=== PATIENT | male | born 1955 | race Caucasian/White ===

== ENCOUNTER 2016-12-27 13:39 | Emergency (ER) | payer OTHER ==
[2016-12-27] MEDS ORDERED: SODIUM CHLORIDE 0.9% 1,000 ML IV STA ×2 (13:42)
[2016-12-27 13:46] VITALS: RESP 18
--- NOTE | 2016-12-27 13:54 | ED ---
General Adult HPI - General Chief complaint: Dizziness Stated complaint: Weakness Time Seen by Provider: 12/27/16 13:42 Source: patient, family, EMS, RN notes reviewed, old records reviewed Mode of arrival: EMS - History of Present Illness Initial comments: This is a 7-year-old male to the ER today with weakness. She had majority of complaints and when he woke this morning around 5 AM. Patient gets up early to do chores. Was noted patient is any difficulty getting his copier on 5:30 walking with difficulty talking without difficulty. Patient still wanted to the sore comes on had worsening symptoms. Patient himself denies headache. He thinks his symptoms are improving at this time. Still with mild headache. No fevers. No trauma. - Related Data Home Medications Medication Instructions Recorded Confirmed ALPRAZolam [Xanax] 1 mg PO BID 12/27/16 12/27/16 Albuterol Inhaler [Ventolin Hfa 2 puff INHALATION RT-Q6H PRN 12/27/16 12/27/16 Inhaler] Hydrocodone/Acetaminophen 1 tab PO Q8H PRN 12/27/16 12/27/16 [Hydrocodone/Acetaminophen 10-325] Lidocaine 5% Oint [Xylocaine 5% 1 applic TOPICAL BID PRN 12/27/16 12/27/16 Oint] Allergies Allergy/AdvReac Type Severity Reaction Status Date / Time No Known Allergies Allergy Verified 04/08/14 12:43 Review of Systems ROS Statement: Those systems with pertinent positive or pertinent negative responses have been documented in the HPI. ROS Other: All systems not noted in ROS Statement are negative. Past Medical History Past Medical History: GERD/Reflux, Hypertension History of Any Multi-Drug Resistant Organisms: None Reported Past Surgical History: Orthopedic Surgery Additional Past Surgical History / Comment(s): arthroscopy to left knee Past Anesthesia/Blood Transfusion Reactions: No Reported Reaction Past Psychological History: No Psychological Hx Reported Smoking Status: Current every day smoker Past Alcohol Use History: None Reported, Occasional Past Drug Use History: None Reported General Exam - General Exam Comments Initial Comments: NIH of 6 General appearance: alert, in no apparent distress Head exam: Present: atraumatic, normocephalic, normal inspection Eye exam: Present: normal appearance, PERRL, EOMI. Absent: scleral icterus, conjunctival injection, periorbital swelling ENT exam: Present: normal exam, mucous membranes moist Neck exam: Present: normal inspection. Absent: tenderness, meningismus, lymphadenopathy Respiratory exam: Present: normal lung sounds bilaterally. Absent: respiratory distress, wheezes, rales, rhonchi, stridor Cardiovascular Exam: Present: regular rate, normal rhythm, normal heart sounds. Absent: systolic murmur, diastolic murmur, rubs, gallop, clicks GI/Abdominal exam: Present: soft, normal bowel sounds. Absent: distended, tenderness, guarding, rebound, rigid Extremities exam: Present: normal inspection, full ROM, normal capillary refill. Absent: tenderness, pedal edema, joint swelling, calf tenderness Back exam: Present: normal inspection Neurological exam: Present: alert, oriented X3, CN II-XII intact Psychiatric exam: Present: normal affect, normal mood Skin exam: Present: warm, dry, intact, normal color. Absent: rash Course Vital Signs 12/27/16 12/27/16 12/27/16 13:42 14:03 14:30 Temperature 98.3 F Pulse Rate 78 77 83 Respiratory 18 18 18 Rate Blood Pressure 182/85 171/77 172/83 O2 Sat by Pulse 97 99 Oximetry - Reevaluation(s) Reevaluation #1: 12/27/16 15:13 Discussed the patient and family at length regarding results. Again at this time patient is very irritated, like to be sent home EKG Findings - EKG Comments: EKG Findings:: EKG shows sinus pericardial effusion 9, ID 150, QRS 42, QTC 439 Medical Decision Making - Medical Decision Making 7 female the ER with acute CVA, patient outside of the window also refusing treatment. Patient was just curious as well as cause of his right-sided weakness. He is conveyances and weakness is improved. Refuses further testing , refuses further exam. Patient was out AGAINST MEDICAL ADVICE, able to make his own medical decisions. - Lab Data Result diagrams: 12/27/16 14:04 12/27/16 14:04 Lab Results 12/27/16 12/27/16 12/27/16 Range/Units 14:04 14:04 14:04 WBC 8.0 (3.8-10.6) k/uL RBC 4.56 (4.30-5.90) m/uL Hgb 13.7 (13.0-17.5) gm/dL Hct 40.5 (39.0-53.0) % MCV 88.8 (80.0-100.0) fL MCH 30.0 (25.0-35.0) pg MCHC 33.8 (31.0-37.0) g/dL RDW 13.8 (11.5-15.5) % Plt Count 235 (150-450) k/uL Neutrophils % 78 % Lymphocytes % 16 % Monocytes % 3 % Eosinophils % 1 % Basophils % 0 % Neutrophils # 6.3 (1.3-7.7) k/uL Lymphocytes # 1.3 (1.0-4.8) k/uL Monocytes # 0.2 (0-1.0) k/uL Eosinophils # 0.1 (0-0.7) k/uL Basophils # 0.0 (0-0.2) k/uL PT (9.0-12.0) sec INR (<1.2) APTT (22.0-30.0) sec Sodium 139 (137-145) mmol/L Potassium 3.9 (3.5-5.1) mmol/L Chloride 107 (98-107) mmol/L Carbon Dioxide 23 (22-30) mmol/L Anion Gap 9 mmol/L BUN 14 (9-20) mg/dL Creatinine 0.98 (0.66-1.25) mg/dL Est GFR (MDRD) Af Amer >60 (>60 ml/min/1.73 sqM) Est GFR (MDRD) Non-Af >60 (>60 ml/min/1.73 sqM) Glucose 103 H (74-99) mg/dL Calcium 9.0 (8.4-10.2) mg/dL Phosphorus 3.6 (2.5-4.5) mg/dL Magnesium 1.7 (1.6-2.3) mg/dL Total Bilirubin 0.4 (0.2-1.3) mg/dL AST 31 (17-59) U/L ALT 37 (21-72) U/L Alkaline Phosphatase 69 (38-126) U/L Total Creatine Kinase 127 (55-170) U/L CK-MB (CK-2) 1.8 (0.0-2.4) ng/mL CK-MB (CK-2) Rel Index 1.4 Troponin I <0.012 (0.000-0.034) ng/mL Total Protein 6.7 (6.3-8.2) g/dL Albumin 4.0 (3.5-5.0) g/dL TSH 0.979 (0.465-4.680) mIU/L Serum Alcohol <10 mg/dL 12/27/16 Range/Units 14:04 WBC (3.8-10.6) k/uL RBC (4.30-5.90) m/uL Hgb (13.0-17.5) gm/dL Hct (39.0-53.0) % MCV (80.0-100.0) fL MCH (25.0-35.0) pg MCHC (31.0-37.0) g/dL RDW (11.5-15.5) % Plt Count (150-450) k/uL Neutrophils % % Lymphocytes % % Monocytes % % Eosinophils % % Basophils % % Neutrophils # (1.3-7.7) k/uL Lymphocytes # (1.0-4.8) k/uL Monocytes # (0-1.0) k/uL Eosinophils # (0-0.7) k/uL Basophils # (0-0.2) k/uL PT 10.7 (9.0-12.0) sec INR 1.1 (<1.2) APTT 34.2 H (22.0-30.0) sec Sodium (137-145) mmol/L Potassium (3.5-5.1) mmol/L Chloride (98-107) mmol/L Carbon Dioxide (22-30) mmol/L Anion Gap mmol/L BUN (9-20) mg/dL Creatinine (0.66-1.25) mg/dL Est GFR (MDRD) Af Amer (>60 ml/min/1.73 sqM) Est GFR (MDRD) Non-Af (>60 ml/min/1.73 sqM) Glucose (74-99) mg/dL Calcium (8.4-10.2) mg/dL Phosphorus (2.5-4.5) mg/dL Magnesium (1.6-2.3) mg/dL Total Bilirubin (0.2-1.3) mg/dL AST (17-59) U/L ALT (21-72) U/L Alkaline Phosphatase (38-126) U/L Total Creatine Kinase (55-170) U/L CK-MB (CK-2) (0.0-2.4) ng/mL CK-MB (CK-2) Rel Index Troponin I (0.000-0.034) ng/mL Total Protein (6.3-8.2) g/dL Albumin (3.5-5.0) g/dL TSH (0.465-4.680) mIU/L Serum Alcohol mg/dL - Radiology Data Radiology results: report reviewed (CT brain, CTA shows no acute disease), image reviewed Disposition Clinical Impression: CVA (cerebral vascular accident) Disposition: Left Against Medical Advice Condition: Serious Referrals: Zoie Olvera MD [Primary Care Provider] - 1-2 days
[2016-12-27] MEDS ORDERED: RX INFO: IV CONTRAST WAS GIVEN 1 EACH MISC MISCELLANE PRN (14:09)
[2016-12-27 14:18] LABS: Basophils % (A) 0 %; CH 31.6; CHCM 35.7; Eosinophils # (A) 0.1 k/uL (0-0.7); Eosinophils % (A) 1 %; HCT 40.5 % (39.0-53.0); HDW 2.74; HGB 13.7 gm/dL (13.0-17.5); Luc % (Auto) 1; Lymphocytes # (A) 1.3 k/uL (1.0-4.8); Lymphocytes % (A) 16 %; MCHC 33.8 g/dL (31.0-37.0); MCV 88.8 fL (80.0-100.0); Mean Platelet Volume 7.8; Monocytes # (A) 0.2 k/uL (0-1.0); Monocytes % (A) 3 %; Neutrophils # (A) 6.3 k/uL (1.3-7.7); Neutrophils % (A) 78 %; RBC 4.56 m/uL (4.30-5.90); RDW 13.8 % (11.5-15.5); WBC (Perox) 8.04
[2016-12-27 14:30] LABS: INR 1.1 (<1.2); Partial Thromboplastin Time 34.2 sec (22.0-30.0); Prothrombin Time 10.7 sec (9.0-12.0)
[2016-12-27 14:40] LABS: ALT 37 U/L (21-72); AST 31 U/L (17-59); Alcohol <10 mg/dL; Alkaline Phosphatase 69 U/L (38-126); Anion Gap 9 mmol/L; Blood Urea Nitrogen 14 mg/dL (9-20); Carbon Dioxide 23 mmol/L (22-30); Chloride 107 mmol/L (98-107); Creatine Kinase 127 U/L (55-170); Glucose 103 mg/dL (74-99); Magnesium 1.7 mg/dL (1.6-2.3); Non-African American GFR(MDRD) >60 (>60 ml/min/1.73 sqM); Phosphorous 3.6 mg/dL (2.5-4.5); Potassium 3.9 mmol/L (3.5-5.1); Sodium 139 mmol/L (137-145); Total Bilirubin 0.4 mg/dL (0.2-1.3); Total Protein 6.7 g/dL (6.3-8.2)
--- NOTE | 2016-12-27 14:42 | CT ---
EXAMINATION TYPE: CT brain wo con DATE OF EXAM: 12/27/2016 COMPARISON: NONE HISTORY: Weakness CT DLP: 963.6 mGycm Automated exposure control for dose reduction was used. FINDINGS: Ventricular system midline with no mass effect or displacement. There is no acute intracranial hemorr nirav. Calvarium intact. Sulci appear to be symmetric. Atherosclerotic changes of the vasculature noted. IMPRESSION: 1. NO ACUTE HEMORRHAGE OR MASS EFFECT. IF THERE IS CLINICAL CONCERN FOR ACUTE ISCHEMIA CORRELATE WITH MRI CLINICALLY WARRANTED.
[2016-12-27 14:51] LABS: Creatine Kinase MB 1.8 ng/mL (0.0-2.4); Troponin I <0.012 ng/mL (0.000-0.034)
--- NOTE | 2016-12-27 15:01 | CT ---
EXAMINATION TYPE: CT angio head neck DATE OF EXAM: 12/27/2016 HISTORY: Weakness COMPARISON: NONE CT DLP: 328.5 mGycm. Automated Exposure Control for Dose Reduction was Utilized. TECHNIQUE: CTA scan of the neck is performed with IV Contrast, patient injected with 65 mL of Omnipa que 350, axial images are obtained, coronal and sagittal reformatted images are reviewed. Three-D rec onstructed images are created on an independent workstation and reviewed. FINDINGS: There is mild atherosclerotic plaque at the origin of the left carotid bifurcation and mild to moderate changes on the right. No definite significant stenosis. There is mild atherosclerotic changes involving the aortic arch, left subclavian artery and within th e common carotid artery bilaterally. Intracranially the vertebral basilar system is patent. Left vertebral artery is dominant. Visualized posterior cerebral arteries enhance normally. Distal common internal carotid arteries appear to be patent bilaterally There appears to be a patent anterior communicating artery. There is a diminutive A2 segment of the l eft anterior cerebral artery. Middle cerebral arteries appear to enhance normally. No diagnostic evidence of aneurysm. IMPRESSION: 1. Mild atherosclerotic plaque as discussed above with no significant hemodynamic stenosis. 2. There is diminutive A2 segment of the left anterior cerebral artery which may be congenital. Acute occlusion cannot be entirely excluded without a prior exam. There does appear to be a patent anterio r communicating artery and filling of the more distal margin of the anterior cerebral arteries. There fore, this could potentially be congenital correlate clinically. Correlate clinically. 3 there also i s a diminutive appearance to the M1 segment of the left middle cerebral artery. However, there does a ppear to be distal enhancement. Correlate clinically.
[2016-12-27 15:30] VITALS: PULSE 78; TEMP 98
[2016-12-27] MEDS ORDERED: LABETALOL 5 MG/ML VIAL MDV IVP STA (15:39)
[2016-12-27] MEDS ORDERED: ASPIRIN 81 MG CHEW PO STA (15:39)
[2016-12-27 16:19] VITALS: BP 175/96
== END 2016-12-27 16:24 | disposition left against medical advice (07) ==
LOC: EC 13:39
DX: I63.9 Cerebral infarction, unspecified (principal); F17.200 Nicotine dependence, unspecified, uncomplicated; Z79.899 Other long term (current) drug therapy
CPT/HCPCS: 36415; 80053; 82550; 82553; 83735; 84100; 84443; 84484; 85025; 85610; 85730; 80320; 70496; 70450; 70498; 99285; 96374; 96361 ×2; Q9967

== ENCOUNTER 2016-12-28 12:28 | Emergency (ER) | payer OTHER ==
[2016-12-28 12:35] LABS: Glucose,Whole Blood 116 mg/dL (75-99)
[2016-12-28 12:43] VITALS: RESP 16; TEMP 97.7
[2016-12-28] MEDS ORDERED: SODIUM CHLORIDE 0.9% 1,000 ML IV STA ×2 (12:47→14:43)
[2016-12-28] MEDS ORDERED: RX INFO: IV CONTRAST WAS GIVEN 1 EACH MISC MISCELLANE PRN (12:48)
[2016-12-28 13:02] LABS: Basophils % (A) 0 %; CH 30.5; CHCM 35.1; Eosinophils # (A) 0.1 k/uL (0-0.7); Eosinophils % (A) 2 %; HCT 39.8 % (39.0-53.0); HDW 2.78; HGB 13.9 gm/dL (13.0-17.5); Luc # (Auto) 0.11; Luc % (Auto) 2; Lymphocytes # (A) 1.4 k/uL (1.0-4.8); Lymphocytes % (A) 21 %; MCH 30.6 pg (25.0-35.0); MCHC 35.1 g/dL (31.0-37.0); MCV 87.3 fL (80.0-100.0); Mean Platelet Volume 7.6; Monocytes # (A) 0.2 k/uL (0-1.0); Monocytes % (A) 3 %; Neutrophils % (A) 73 %; RBC 4.56 m/uL (4.30-5.90); RDW 13.2 % (11.5-15.5); WBC 6.9 k/uL (3.8-10.6); WBC (Perox) 7.06
[2016-12-28 13:13] LABS: ALT 40 U/L (21-72); AST 28 U/L (17-59); Alkaline Phosphatase 64 U/L (38-126); Anion Gap 7 mmol/L; Blood Urea Nitrogen 10 mg/dL (9-20); Calcium 9.1 mg/dL (8.4-10.2); Carbon Dioxide 26 mmol/L (22-30); Chloride 105 mmol/L (98-107); Glucose 105 mg/dL (74-99); INR 1.1 (<1.2); Non-African American GFR(MDRD) >60 (>60 ml/min/1.73 sqM); Partial Thromboplastin Time 32.9 sec (22.0-30.0); Potassium 3.9 mmol/L (3.5-5.1); Prothrombin Time 10.8 sec (9.0-12.0); Sodium 138 mmol/L (137-145); Total Bilirubin 0.5 mg/dL (0.2-1.3); Total Protein 6.5 g/dL (6.3-8.2)
[2016-12-28 13:30] LABS: Creatine Kinase 93 U/L (55-170)
[2016-12-28 13:44] LABS: Creatine Kinase MB 1.2 ng/mL (0.0-2.4); Troponin I <0.012 ng/mL (0.000-0.034)
[2016-12-28] MEDS ORDERED: CLOPIDOGREL 75 MG TAB PO STA (14:37)
[2016-12-28] MEDS ORDERED: ASPIRIN 81 MG CHEW PO STA (14:38)
--- NOTE | 2016-12-28 14:46 | CT ---
EXAMINATION TYPE: CT brain wo con DATE OF EXAM: 12/28/2016 COMPARISON: NONE INDICATION: Stroke, CVA DLP: 1029.90 mGycm, Automated exposure control for dose reduction was used. CONTRAST: None CT of the brain is performed utilizing 3 mm thick sections through the posterior fossa and 3 mm thick sections through the remaining calvarium. Study is not performed within 24 hours of arrival to the hospital. No abnormal hyperdensity is present to suggest an acute intracranial hemorrhage. No mass lesion is evident. There is subtle subcortical hypodensity through the left posterior frontal region. Acute to subacute infarct could be present. Correlate with symptoms. This appears to be maturing. Ventricles and sulci are appropriate for the patient age. Paranasal sinuses and mastoid air cells within the [id number] are clear. IMPRESSIONS: 1. Suspected acute to subacute subcortical infarct left frontal lobe.
--- NOTE | 2016-12-28 14:51 | ED ---
Neuro HPI - General Chief Complaint: Neuro Symptoms/Deficit Stated Complaint: Stroke Time Seen by Provider: 12/28/16 12:39 Source: patient Mode of arrival: EMS Limitations: no limitations - History of Present Illness Is the patient presenting with stroke symptoms?: Yes Initial Comments: This 61-year-old white male presents with strokelike symptoms. He initially had the symptom onset yesterday at 5:30 AM. He presented to our ER around 2:00 yesterday. He had full stroke workup including noncontrasted computed tomography scan of the brain as well as a CTA. This showed possible occlusion and the patient signed out AGAINST MEDICAL ADVICE. He was having right-sided paralysis yesterday. This morning he apparently developed significant aphasia as well. He still is able to understand you and is able to nod his head yes or no but it is difficult to understand his speech. He denies any actual pain. He denies any previous similar symptoms her history of stroke. No other complaints or modifying factors. - Related Data Home Medications: Home Medications Medication Instructions Recorded Confirmed ALPRAZolam [Xanax] 1 mg PO BID 12/27/16 12/28/16 Albuterol Inhaler [Ventolin Hfa 2 puff INHALATION RT-Q6H PRN 12/27/16 12/28/16 Inhaler] Hydrocodone/Acetaminophen 1 tab PO Q8H PRN 12/27/16 12/28/16 [Hydrocodone/Acetaminophen 10-325] Lidocaine 5% Oint [Xylocaine 5% 1 applic TOPICAL BID PRN 12/27/16 12/28/16 Oint] Allergies/Adverse Reactions: Allergies Allergy/AdvReac Type Severity Reaction Status Date / Time No Known Allergies Allergy Verified 12/28/16 12:43 Review of Systems ROS Statement: Those systems with pertinent positive or pertinent negative responses have been documented in the HPI. ROS Other: All systems not noted in ROS Statement are negative. General Exam - General Exam Comments Initial Comments: GENERAL: The patient is well nourished and well hydrated. VITAL SIGNS: Heart rate, blood pressure, respiratory rate reviewed as recorded in nurse's notes. EYES: Pupils are round and reactive. Extraocular movements are intact. No conjunctival / lid redness or swelling. ENT: No external evidence of injury, swelling, or ecchymosis. Airway is patent. Throat is clear. NECK: Nontender. No swelling or evidence of injury. No subcutaneous emphysema. Trachea is midline. No thyroid mass. HEART: Regular rate and rhythm. Good peripheral pulses. LUNGS/CHEST: Breath sounds clear and equal bilaterally. No rales, rhonchi, or wheezes. No ecchymosis, subcutaneous emphysema, or tenderness. ABDOMEN: Abdomen soft without tenderness. No palpable masses or organomegaly. No peritoneal signs. No abdominal wall swelling or ecchymosis. EXTREMITIES: No extremity tenderness. Normal muscle tone and function. No thoracolumbar tenderness. NEUROLOGIC: The patient has complete right-sided paralysis. He has a right- sided facial droop which is more noticeable and smiling. He has significant aphasia. Sensation appears to be intact. Please see nursing documentation for additional details in regard to his NIH stroke scale exam of 17. SKIN: No abrasions or ecchymosis is noted. No induration or masses noted. PSYCHIATRIC: Alert and in no distress. He appears appropriate but there is a communication barrier. Limitations: no limitations Stroke MDM - Lab Data Result diagrams: 12/28/16 12:50 12/28/16 12:50 Lab Results 12/28/16 12/28/16 12/28/16 Range/Units 12:33 12:50 12:50 WBC 6.9 (3.8-10.6) k/uL RBC 4.56 (4.30-5.90) m/uL Hgb 13.9 (13.0-17.5) gm/dL Hct 39.8 (39.0-53.0) % MCV 87.3 (80.0-100.0) fL MCH 30.6 (25.0-35.0) pg MCHC 35.1 (31.0-37.0) g/dL RDW 13.2 (11.5-15.5) % Plt Count 240 (150-450) k/uL Neutrophils % 73 % Lymphocytes % 21 % Monocytes % 3 % Eosinophils % 2 % Basophils % 0 % Neutrophils # 5.0 (1.3-7.7) k/uL Lymphocytes # 1.4 (1.0-4.8) k/uL Monocytes # 0.2 (0-1.0) k/uL Eosinophils # 0.1 (0-0.7) k/uL Basophils # 0.0 (0-0.2) k/uL PT (9.0-12.0) sec INR (<1.2) APTT (22.0-30.0) sec Sodium (137-145) mmol/L Potassium (3.5-5.1) mmol/L Chloride (98-107) mmol/L Carbon Dioxide (22-30) mmol/L Anion Gap mmol/L BUN (9-20) mg/dL Creatinine (0.66-1.25) mg/dL Est GFR (MDRD) Af Amer (>60 ml/min/1.73 sqM) Est GFR (MDRD) Non-Af (>60 ml/min/1.73 sqM) Glucose (74-99) mg/dL POC Glucose (mg/dL) 116 H (75-99) mg/dL POC Glu Choral Teacher ID Marilyn Dorman Calcium (8.4-10.2) mg/dL Total Bilirubin (0.2-1.3) mg/dL AST (17-59) U/L ALT (21-72) U/L Alkaline Phosphatase (38-126) U/L Total Creatine Kinase 93 (55-170) U/L CK-MB (CK-2) 1.2 (0.0-2.4) ng/mL CK-MB (CK-2) Rel Index 1.3 Troponin I <0.012 (0.000-0.034) ng/mL Total Protein (6.3-8.2) g/dL Albumin (3.5-5.0) g/dL 12/28/16 12/28/16 Range/Units 12:50 12:50 WBC (3.8-10.6) k/uL RBC (4.30-5.90) m/uL Hgb (13.0-17.5) gm/dL Hct (39.0-53.0) % MCV (80.0-100.0) fL MCH (25.0-35.0) pg MCHC (31.0-37.0) g/dL RDW (11.5-15.5) % Plt Count (150-450) k/uL Neutrophils % % Lymphocytes % % Monocytes % % Eosinophils % % Basophils % % Neutrophils # (1.3-7.7) k/uL Lymphocytes # (1.0-4.8) k/uL Monocytes # (0-1.0) k/uL Eosinophils # (0-0.7) k/uL Basophils # (0-0.2) k/uL PT 10.8 (9.0-12.0) sec INR 1.1 (<1.2) APTT 32.9 H (22.0-30.0) sec Sodium 138 (137-145) mmol/L Potassium 3.9 (3.5-5.1) mmol/L Chloride 105 (98-107) mmol/L Carbon Dioxide 26 (22-30) mmol/L Anion Gap 7 mmol/L BUN 10 (9-20) mg/dL Creatinine 0.89 (0.66-1.25) mg/dL Est GFR (MDRD) Af Amer >60 (>60 ml/min/1.73 sqM) Est GFR (MDRD) Non-Af >60 (>60 ml/min/1.73 sqM) Glucose 105 H (74-99) mg/dL POC Glucose (mg/dL) (75-99) mg/dL POC Glu Choral Teacher ID Calcium 9.1 (8.4-10.2) mg/dL Total Bilirubin 0.5 (0.2-1.3) mg/dL AST 28 (17-59) U/L ALT 40 (21-72) U/L Alkaline Phosphatase 64 (38-126) U/L Total Creatine Kinase (55-170) U/L CK-MB (CK-2) (0.0-2.4) ng/mL CK-MB (CK-2) Rel Index Troponin I (0.000-0.034) ng/mL Total Protein 6.5 (6.3-8.2) g/dL Albumin 3.8 (3.5-5.0) g/dL - Medical Decision Making The patient was seen and examined. All diagnostics were reviewed. An IV is started and he is placed on the celebrity manager. No ectopy is identified. His EKG shows a normal sinus rhythm at a rate of 60. There is some evidence of left ventricular hypertrophy. There is some ST-T wave changes mostly in the anteroseptal leads he clearly related to this. There is no chest pain or shortness of breath currently. The old records were reviewed in detail. The case is discussed with Dr. Youssef, the interventional neurologist content assistant total of 4 times in regard to the patient. He does request the noncontrasted computed tomography scan of the brain. This is read out as a suspected acute to subacute subcortical infarct of the left frontal lobe. Dr. Youssef also reviewed the CTA from yesterday and doesn't note an occlusion. The laboratory is reviewed and is unremarkable. He would like the patient to receive 1 L of normal saline as well as 300 of Plavix and aspirin. His is ordered and will be administered. He also would like the patient transferred to [facility] as he may still be able to perform interventional treatment. The case is discussed with the ER physician, and they are agreeable with the transfer. The sister and niece and patient were updated on recheck and he is agreeable to transfer. Appropriate transfer paperwork will be completed. Past Medical History Past Medical History: CVA/TIA, GERD/Reflux, Hypertension History of Any Multi-Drug Resistant Organisms: None Reported Past Surgical History: Orthopedic Surgery Additional Past Surgical History / Comment(s): arthroscopy to left knee Past Anesthesia/Blood Transfusion Reactions: No Reported Reaction Past Psychological History: No Psychological Hx Reported Smoking Status: Current every day smoker Past Alcohol Use History: None Reported, Occasional Past Drug Use History: None Reported Course Vital Signs 12/28/16 12:35 Temperature 97.7 F Pulse Rate 56 L Respiratory 16 Rate Blood Pressure 133/69 O2 Sat by Pulse 97 Oximetry Disposition Clinical Impression: Cerebrovascular accident, Paralysis, Aphasia Disposition: OTHER INSTITUTION NOT DEFINED Condition: Serious Time of Disposition: 14:50 - Out of Hospital Transfer - Req. Specs Out of Hospital Transfer - Requested Specifics: Other Emergency Center ([facility] ED for NICU admit)
[2016-12-28] MEDS ORDERED: ASPIRIN 300 MG SUPP RECTAL STA (15:00)
[2016-12-28 15:02] VITALS: BP 172/87; PULSE 60
== END 2016-12-28 15:01 | disposition other institution (70) ==
LOC: EC 12:28
DX: I63.9 Cerebral infarction, unspecified (principal); G83.9 Paralytic syndrome, unspecified; Z79.899 Other long term (current) drug therapy
CPT/HCPCS: 36415; 70450; 80053; 82550; 82553; 84484; 85025; 85610; 85730; 93005; 99285

== ENCOUNTER 2017-07-15 16:27 | Emergency (ER) | payer OTHER ==
[2017-07-15 16:56] VITALS: BP 104/48; PULSE 54; RESP 18; TEMP 97.9
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
--- NOTE | 2017-07-15 17:02 | XR ---
EXAMINATION TYPE: XR chest 2V DATE OF EXAM: 07/15/2017 COMPARISON: NONE TECHNIQUE: PA and lateral views submitted. HISTORY: Cough FINDINGS: The lungs are clear and there is no pneumothorax, pleural effusion, or focal pneumonia. Atheroscler otic change aorta. Arthropathy of the shoulders. Diffuse osteopenia. Hypertrophic and degenerative ch paresh of the spine. Hyperinflation suggests COPD. IMPRESSION: 1. No acute process.
== END 2017-07-15 17:20 | disposition home or self-care (01) ==
LOC: EC 16:27
DX: L02.213 Cutaneous abscess of chest wall (principal); J44.9 Chronic obstructive pulmonary disease, unspecified; K21.9 Gastro-esophageal reflux disease without esophagitis; E78.5 Hyperlipidemia, unspecified; I10 Essential (primary) hypertension; Z86.73 Personal history of transient ischemic attack (TIA), and cerebral infarction without residual deficits; Z87.891 Personal history of nicotine dependence; Z79.82 Long term (current) use of aspirin; Z79.02 Long term (current) use of antithrombotics/antiplatelets; Z79.1 Long term (current) use of non-steroidal anti-inflammatories (NSAID); Z79.899 Other long term (current) drug therapy
CPT/HCPCS: 71046; 87070; 87077; 87186; 87205; 99284

== ENCOUNTER 2018-01-03 11:44 | Emergency (ER) | payer OTHER ==
[2018-01-03 11:50] VITALS: BP 139/68; PULSE 84; RESP 18; TEMP 97.6
[2018-01-03] MEDS ORDERED: PROPARACAINE 0.5% OPHTH DROPS 15 ML BTL LEFT EYE STA (12:13)
--- NOTE | 2018-01-03 12:36 | ED ---
Eye Problem HPI - General Chief complaint: Eye Problems Stated complaint: FB LEFT EYE Time Seen by Provider: 01/03/18 12:00 Source: patient Mode of arrival: ambulatory Limitations: no limitations - History of Present Illness Initial comments: This is a 62-year-old male who presents to the emergency department with chief complaint of left eye pain. Patient reports weed whacking last evening. He states that he felt something get into his left eye. He reports blurred vision , a stringy white substance coming from his eye and eye pain off to the lateral side. Reports foreign body sensation. He denies any other injuries. Denies wearing contact lenses. Denies fevers or chills, chest pain shortness of breath , abdominal pain, nausea or vomiting, dizziness. - Related Data Home Medications Medication Instructions Recorded Confirmed ALPRAZolam [Xanax] 1 - 2 mg PO BID PRN 12/27/16 01/03/18 Atorvastatin Calcium [Lipitor] 40 mg PO HS 07/15/17 01/03/18 Clopidogrel [Plavix] 75 mg PO DAILY 07/15/17 01/03/18 Hydrochlorothiazide [Hydrodiuril] 25 mg PO DAILY 07/15/17 01/03/18 Lisinopril [Prinivil] 10 mg PO DAILY 07/15/17 01/03/18 amLODIPine [Norvasc] 10 mg PO DAILY 07/15/17 01/03/18 traZODone HCL [Desyrel] 100 mg PO HS 07/15/17 01/03/18 Acetaminophen with Codeine 1 tab PO Q8H PRN 01/03/18 01/03/18 [Tylenol w/codeine #4] Aspirin EC [Ecotrin] 325 mg PO DAILY 01/03/18 01/03/18 FLUoxetine HCL [PROzac] 20 mg PO DAILY 01/03/18 01/03/18 Allergies Allergy/AdvReac Type Severity Reaction Status Date / Time No Known Allergies Allergy Verified 01/03/18 12:09 Review of Systems ROS Statement: Those systems with pertinent positive or pertinent negative responses have been documented in the HPI. ROS Other: All systems not noted in ROS Statement are negative. Past Medical History Past Medical History: COPD, CVA/TIA, GERD/Reflux, Hyperlipidemia, Hypertension History of Any Multi-Drug Resistant Organisms: MRSA Date of last positivie culture/infection: 07/15/17 MDRO Source:: chest Past Surgical History: Orthopedic Surgery Additional Past Surgical History / Comment(s): arthroscopy to left knee, right hand Past Anesthesia/Blood Transfusion Reactions: No Reported Reaction Past Psychological History: Bipolar Smoking Status: Former smoker Past Alcohol Use History: None Reported Past Drug Use History: None Reported General Exam - General Exam Comments Initial Comments: General: Awake and alert, well-developed; in no apparent distress. HEENT: Head atraumatic, normocephalic. Pupils are equal, round and reactive to light. Extraocular movements intact. Left conjunctiva is injected. No foreign body identified on fluorescein staining or under superior inferior eyelids. No conjunctival abrasion or deformity. No hyphema. Negative Arcenio's test. Small scleral abrasion noted to the lateral aspect of the left eye. Oropharynx moist without erythema or exudate. Neck: Supple. Normal ROM. Cardiovascular: Regular rate and rhythm. No murmurs, rubs or gallops. Chest symmetrical. Respiratory: Lungs clear to auscultation bilaterally. No wheezes, rales or rhonchi. Normal respiratory effort with no use of accessory muscles. Musculoskeletal: Normal ROM, no tenderness bilateral upper and lower extremities. Ambulating normally. Skin: Kappa, warm and dry without rashes or lesions. Neurological: Alert and oriented x3. CN II-XII grossly intact. Speech is fluent and answers are appropriate. No focal neuro deficits. Psychiatric: Normal mood and affect. No overt signs of depression or anxiety noted. Limitations: no limitations Course Vital Signs 01/03/18 11:47 Temperature 97.6 F Pulse Rate 84 Respiratory 18 Rate Blood Pressure 139/68 O2 Sat by Pulse 98 Oximetry Medical Decision Making - Medical Decision Making This is a 62-year-old male who presents to the emergency department with chief complaint of left eye pain. Patient reports foreign body sensation after weed whacking last evening. He reports pain to the lateral aspect of the eye. Visual acuity in the left eye is 20/40 in in the right eye 20/20. Patient denies contact lens use. On physical examination, left conjunctiva is injected. Pupils are equal, round and reactive to light. No hyphema. Negative Arcenio's test. No foreign bodies are identified. There is a small scleral abrasion to the lateral aspect of the eye. Pain was relieved with instilling proparacaine drops. Case was discussed with fellow physician dental assistant instructor who also evaluated the patient. Patient will be discharged home with tobramycin drops. He is also provided with contact information to follow up with ophthalmology. Vital signs are stable and he is in no acute distress. He will be discharged home at this time. He is in agreement with plan and voices understanding. All questions were answered. Disposition Clinical Impression: Abrasion of sclera of left eye Disposition: HOME SELF-CARE Condition: Good Instructions: Corneal Abrasion (ED) Additional Instructions: Please follow-up with Dr. Maldonado, ophthalmology within 1-2 days for further evaluation. Please apply 1-2 drops to the affected eye every 4 hours for the next 5 days. Please take medications as prescribed. Please follow up with primary care provider within 1-2 days. Return to emergency department if symptoms should worsen or any concerns arise. Is patient prescribed a controlled substance at d/c from ED?: No Referrals: Zoie Olvera MD [Primary Care Provider] - 1-2 days Jian Maldonado MD [STAFF PHYSICIAN] - 1-2 days Time of Disposition: 12:41
[2018-01-03] MEDS ORDERED: TOBRAMYCIN 0.3% OPHTH DROPS 5 ML BTL LEFT EYE STA (12:37)
== END 2018-01-03 12:53 | disposition home or self-care (01) ==
LOC: EC 11:44
DX: S05.8X2A Other injuries of left eye and orbit, initial encounter (principal); E78.5 Hyperlipidemia, unspecified; I10 Essential (primary) hypertension; F31.9 Bipolar disorder, unspecified; Z86.73 Personal history of transient ischemic attack (TIA), and cerebral infarction without residual deficits; Z86.14 Personal history of Methicillin resistant Staphylococcus aureus infection; Z87.891 Personal history of nicotine dependence; Z79.02 Long term (current) use of antithrombotics/antiplatelets; Z79.82 Long term (current) use of aspirin; Z79.899 Other long term (current) drug therapy; X58.XXXA Exposure to other specified factors, initial encounter; Y93.H2 Activity, gardening and landscaping
CPT/HCPCS: 99283

== ENCOUNTER 2018-03-07 15:24 | Emergency (ER) | payer OTHER ==
[2018-03-07 15:30] VITALS: BP 137/74; PULSE 85; RESP 18; TEMP 98
[2018-03-07] MEDS ORDERED: SODIUM CHLORIDE 0.9% 1,000 ML IV STA (15:43)
[2018-03-07] MEDS ORDERED: MORPHINE SULFATE 4 MG/ML SYRINGE IV STA (16:12)
[2018-03-07 16:27] LABS: Basophils # (A) 0.1 k/uL (0-0.2); Basophils % (A) 1 %; Eosinophils # (A) 0.2 k/uL (0-0.7); Eosinophils % (A) 2 %; HCT 34.3 % (39.0-53.0); HGB 11.6 gm/dL (13.0-17.5); Lymphocytes # (A) 1.8 k/uL (1.0-4.8); Lymphocytes % (A) 17 %; MCH 29.4 pg (25.0-35.0); MCHC 33.8 g/dL (31.0-37.0); Mean Platelet Volume 7.6; Monocytes # (A) 0.4 k/uL (0-1.0); Monocytes % (A) 4 %; Neutrophils # (A) 7.8 k/uL (1.3-7.7); Neutrophils % (A) 76 %; Platelet Count 444 k/uL (150-450); RBC 3.95 m/uL (4.30-5.90); RDW 12.9 % (11.5-15.5); WBC 10.3 k/uL (3.8-10.6)
[2018-03-07 16:28] LABS: ALT 29 U/L (21-72); AST 24 U/L (17-59); Albumin 3.8 g/dL (3.5-5.0); Alkaline Phosphatase 73 U/L (38-126); Anion Gap 8 mmol/L; Blood Urea Nitrogen 18 mg/dL (9-20); Calcium 9.1 mg/dL (8.4-10.2); Carbon Dioxide 25 mmol/L (22-30); Chloride 103 mmol/L (98-107); Glucose 104 mg/dL (74-99); Potassium 4.2 mmol/L (3.5-5.1); Sodium 136 mmol/L (137-145); Total Bilirubin 0.3 mg/dL (0.2-1.3)
--- NOTE | 2018-03-07 16:31 | XR ---
EXAMINATION TYPE: XR tibia fibula LT DATE OF EXAM: 03/07/2018 CLINICAL HISTORY: pain TECHNIQUE: AP and lateral images of the left tibia and fibula are obtained. COMPARISON: None. FINDINGS: There is no acute fracture/dislocation evident. The joint spaces appear within normal sears its. Soft tissue open wound noted anterior soft tissues. No radiopaque foreign body identified. IMPRESSION: There is no acute fracture or dislocation seen. ICD 10 NO FRACTURE, INITIAL EVALUATION
[2018-03-07] MEDS ORDERED: SULFAMETH-TMP DS STARTER PACK 2 TAB BTL PO STA (17:17)
--- NOTE | 2018-03-07 17:18 | ED ---
General Adult HPI - General Chief complaint: Extremity Problem,Nontraumatic Stated complaint: infection on leg Time Seen by Provider: 03/07/18 15:38 Source: patient, RN notes reviewed Mode of arrival: wheelchair Limitations: no limitations - History of Present Illness Initial comments: Patient's a 62-year-old male presents emergency room today with a chief complaint of possible infected wound to the right lower shortly. Patient is admitted 3 weeks ago he was using an angle eyeglass lens grinder cutting tile. He states he went up with a eyeglass lens grinder down on the wheel was still spinning causing a laceration to the anterior aspect of the right lower schumacher. He states it did cause a tendon laceration. He was seen at a hospital in [place]. He states that he had surgery to repair the tendon. He states that he had a cast placed over top of it. He states he has had increased itching in the area over the last 3 days. He states he did take the cast off himself at home. He tried calling up the orthopedic doctor but it is too far away he was unable to get there. He came here to local hospital. Patient states that he's noticed some drainage coming from the area. He does admit to some pain locally. He denies any other complaints or symptoms. Patient states has not been on an antibiotic. Patient denies any recent fever, chills, shortness of breath, chest pain, back pain, headaches or visual changes, or any other complaints. - Related Data Home Medications Medication Instructions Recorded Confirmed ALPRAZolam [Xanax] 1 - 2 mg PO BID PRN 12/27/16 03/07/18 Atorvastatin Calcium [Lipitor] 40 mg PO HS 07/15/17 03/07/18 Clopidogrel [Plavix] 75 mg PO DAILY 07/15/17 03/07/18 Hydrochlorothiazide [Hydrodiuril] 25 mg PO DAILY 07/15/17 03/07/18 Lisinopril [Prinivil] 10 mg PO DAILY 07/15/17 03/07/18 amLODIPine [Norvasc] 10 mg PO DAILY 07/15/17 03/07/18 traZODone HCL [Desyrel] 100 mg PO HS 07/15/17 03/07/18 Aspirin EC [Ecotrin] 325 mg PO DAILY 01/03/18 03/07/18 FLUoxetine HCL [PROzac] 20 mg PO DAILY 01/03/18 03/07/18 Albuterol Inhaler [Ventolin Hfa 1 - 2 puff INHALATION RT-Q6H PRN 03/07/18 Inhaler] Previous Rx's Medication Instructions Recorded Sulfamethox-Tmp 800-160Mg [Bactrim 1 tab PO Q12HR #20 tab 03/07/18 DS 800-160 mg] Allergies Allergy/AdvReac Type Severity Reaction Status Date / Time No Known Allergies Allergy Verified 03/07/18 16:12 Review of Systems ROS Statement: Those systems with pertinent positive or pertinent negative responses have been documented in the HPI. ROS Other: All systems not noted in ROS Statement are negative. Past Medical History Past Medical History: COPD, CVA/TIA, GERD/Reflux, Hyperlipidemia, Hypertension History of Any Multi-Drug Resistant Organisms: MRSA Date of last positivie culture/infection: 07/15/17 MDRO Source:: chest Past Surgical History: Orthopedic Surgery Additional Past Surgical History / Comment(s): arthroscopy to left knee, right hand Past Anesthesia/Blood Transfusion Reactions: No Reported Reaction Past Psychological History: Bipolar Smoking Status: Former smoker Past Alcohol Use History: None Reported Past Drug Use History: None Reported General Exam - General Exam Comments Initial Comments: General: The patient is awake and alert, in no distress, and does not appear acutely ill. Neck: The neck is supple, there is no tenderness or JVD. Musculoskeletal: He does have limited range of motion with dorsiflexion. Patient does have wound to the right lower extremity. There is purulent drainage coming from the area. Neurological: A&O x 3. CN II-XII intact, There are no obvious motor or sensory deficits. Coordination appears grossly intact. Speech is normal. Skin: Patient does have a wound to the right lower leg. Measures approximately 2 cm across. There is surrounding redness. No lymphangitic streaking. Psychiatric: Normal mood and affect. Limitations: no limitations Course Vital Signs 03/07/18 15:27 Temperature 98 F Pulse Rate 85 Respiratory 18 Rate Blood Pressure 137/74 O2 Sat by Pulse 100 Oximetry Medical Decision Making - Medical Decision Making Patient's labs been reviewed. Was discussed with patient about admission to the hospital for infection. Patient has declined. States he does not want be admitted. Refusing admission. States he just wants the area cleaned up and states he will follow-up. Patient will be started on Bactrim starter pack here in the emergency room. He is advised watch for signs of worsening infection and to return. Is advised follow-up this orthopedic doctor tomorrow. - Lab Data Result diagrams: 03/07/18 16:05 03/07/18 16:05 Lab Results 03/07/18 03/07/18 03/07/18 Range/Units 16:05 16:05 16:05 WBC 10.3 (3.8-10.6) k/uL RBC 3.95 L (4.30-5.90) m/uL Hgb 11.6 L (13.0-17.5) gm/dL Hct 34.3 L (39.0-53.0) % MCV 87.0 (80.0-100.0) fL MCH 29.4 (25.0-35.0) pg MCHC 33.8 (31.0-37.0) g/dL RDW 12.9 (11.5-15.5) % Plt Count 444 (150-450) k/uL Neutrophils % 76 % Lymphocytes % 17 % Monocytes % 4 % Eosinophils % 2 % Basophils % 1 % Neutrophils # 7.8 H (1.3-7.7) k/uL Lymphocytes # 1.8 (1.0-4.8) k/uL Monocytes # 0.4 (0-1.0) k/uL Eosinophils # 0.2 (0-0.7) k/uL Basophils # 0.1 (0-0.2) k/uL Sodium 136 L (137-145) mmol/L Potassium 4.2 (3.5-5.1) mmol/L Chloride 103 (98-107) mmol/L Carbon Dioxide 25 (22-30) mmol/L Anion Gap 8 mmol/L BUN 18 (9-20) mg/dL Creatinine 0.79 (0.66-1.25) mg/dL Est GFR (CKD-EPI)AfAm >90 (>60 ml/min/1.73 sqM) Est GFR (CKD-EPI)NonAf >90 (>60 ml/min/1.73 sqM) Glucose 104 H (74-99) mg/dL Plasma Lactic Acid Nate 0.8 (0.7-2.0) mmol/L Calcium 9.1 (8.4-10.2) mg/dL Total Bilirubin 0.3 (0.2-1.3) mg/dL AST 24 (17-59) U/L ALT 29 (21-72) U/L Alkaline Phosphatase 73 (38-126) U/L Total Protein 7.0 (6.3-8.2) g/dL Albumin 3.8 (3.5-5.0) g/dL Disposition Clinical Impression: Postoperative infection Disposition: Left Against Medical Advice Condition: Stable Instructions: Cellulitis (ED) Additional Instructions: Please use antibiotic as prescribed follow-up through her family doctor or orthopedic doctor the next 2 days. Please return here to the emergency room if any symptoms increase worsen or for any concerns Prescriptions: Sulfamethox-Tmp 800-160Mg [Bactrim DS 800-160 mg] 1 tab PO Q12HR #20 tab Is patient prescribed a controlled substance at d/c from ED?: No Referrals: Zoie Olvera MD [Primary Care Provider] - 1-2 days Time of Disposition: 17:16
== END 2018-03-07 17:36 | disposition left against medical advice (07) ==
LOC: EC 15:24
DX: T81.40XA Infection following a procedure, unspecified, initial encounter (principal); J44.9 Chronic obstructive pulmonary disease, unspecified; E78.5 Hyperlipidemia, unspecified; I10 Essential (primary) hypertension; F31.9 Bipolar disorder, unspecified; Z86.14 Personal history of Methicillin resistant Staphylococcus aureus infection; Z86.73 Personal history of transient ischemic attack (TIA), and cerebral infarction without residual deficits; Z87.891 Personal history of nicotine dependence; Z98.890 Other specified postprocedural states; Z79.02 Long term (current) use of antithrombotics/antiplatelets; Z79.82 Long term (current) use of aspirin; Z79.899 Other long term (current) drug therapy; Y83.8 Other surgical procedures as the cause of abnormal reaction of the patient, or of later complication, without mention of misadventure at the time of the procedure
CPT/HCPCS: 36415; 80053; 83605; 85025; 87040; 87070; 87205; 73590; 99283; 96374; 96361; J2270

== ENCOUNTER → 2018-11-13 | Outpatient (CLI) | payer OTHER ==
--- NOTE | 2018-11-13 19:41 | MR ---
EXAMINATION TYPE: MR lumbar spine wo con DATE OF EXAM: 11/13/2018 COMPARISON: 05/22/2012 HISTORY: Chronic low back pain, BLE radic TECHNIQUE: T1 and T2 axial and sagittal images of the lumbar spine are submitted. FINDINGS: There is no abnormal signal seen within the visualized spinal cord or paraspinal soft tissu es. At T12-L1 there is moderate degenerative disc disease and facet arthropathy. No disc herniation or ca nal stenosis. No foraminal encroachment. At L1-2 there is moderate degenerative disc disease with hypertrophic spurring. Mild circumferential disc bulging. No Canal stenosis. No focal herniation. Mild hypertrophic change of the facets. At L2-3 there is disc desiccation and circumferential disc bulging. There is mild flattening of the t hecal sac and hypertrophic change of the ligamentum flavum and facets contribute to borderline to mil d canal stenosis and mild bilateral foraminal encroachment. At L3-4 there is diffuse disc bulging with hypertrophic change of the ligamentum flavum and facets. T here is mild to moderate flattening of the thecal sac and central canal stenosis. Disc bulging appear s greater laterally to left with moderate left foraminal encroachment and mild right foraminal encroa chment. At L4-5 there is disc desiccation and mild broad-based central disc bulging. Facet arthropathy and li gamentum flavum hypertrophy seen. Mild bilateral foraminal encroachment. Borderline central stenosis. At L5-S1 there is facet arthropathy but no disc herniation, canal stenosis, or foraminal encroachment . IMPRESSION: 1. Multilevel degenerative disc disease with hypertrophic changes and disc bulging resulting in canal stenosis and foraminal encroachment at levels L2-3, L3-4, and L4-L5. Findings appear similar to the prior exam.
== END | disposition home or self-care (01) ==
LOC: RADMRIMAIN 18:33
PROVIDERS: ATTEND Psychiatry & Neurology Neurology
DX: M51.36 Other intervertebral disc degeneration, lumbar region (principal); M51.86 Other intervertebral disc disorders, lumbar region
CPT/HCPCS: 72148

== ENCOUNTER 2019-01-01 20:46 | Emergency (ER) | payer OTHER ==
--- NOTE | 2019-01-01 21:09 | ED ---
General Adult HPI - General Stated complaint: Dehydration Time Seen by Provider: 01/01/19 21:03 - History of Present Illness Initial comments: This patient is a 63-year-old man presents with the complaint that he is dehydrated. Patient states that he started feeling this way after he had been helping someone work on the house all day. He states that he also had a couple of episodes of vomiting and diarrhea today and believes that [facility]. He denies any chest pain or dyspnea. He does state that he has been having some heartburn-like pain since the vomiting. He states that he does tend to get this regularly and usually takes an antacid.. Patient was not feeling well and phone EMS and states that he feels better following the IV fluid that they gave and that he wanted to go what I arrived in the room. -: hour(s) Location: abdomen Radiation: non-radiation Quality: burning Consistency: intermittent Improves with: none Worsens with: other (Vomiting) Associated Symptoms: nausea/vomiting, other (Diarrhea) Treatments Prior to Arrival: other (IV fluid) - Related Data Home Medications Medication Instructions Recorded Confirmed ALPRAZolam [Xanax] 1 - 2 mg PO BID PRN 12/27/16 01/01/19 Atorvastatin Calcium [Lipitor] 40 mg PO HS 07/15/17 01/01/19 Clopidogrel [Plavix] 75 mg PO DAILY 07/15/17 01/01/19 Hydrochlorothiazide [Hydrodiuril] 25 mg PO DAILY 07/15/17 01/01/19 Lisinopril [Prinivil] 10 mg PO DAILY 07/15/17 01/01/19 amLODIPine [Norvasc] 10 mg PO DAILY 07/15/17 01/01/19 Aspirin EC [Ecotrin] 325 mg PO DAILY 01/03/18 01/01/19 FLUoxetine HCL [PROzac] 20 mg PO DAILY 01/03/18 01/01/19 Albuterol Inhaler [Ventolin Hfa 1 - 2 puff INHALATION RT-Q6H PRN 03/07/18 01/01/19 Inhaler] Hydrocodone/Acetaminophen [[place] 1 tab PO TID PRN 01/01/19 01/01/19 10-325] Ibuprofen [Motrin] 800 mg PO BID 01/01/19 01/01/19 Ranitidine HCl [Zantac] 150 mg PO BID 01/01/19 01/01/19 Allergies Allergy/AdvReac Type Severity Reaction Status Date / Time No Known Allergies Allergy Verified 01/01/19 21:14 Review of Systems ROS Statement: Those systems with pertinent positive or pertinent negative responses have been documented in the HPI. ROS Other: All systems not noted in ROS Statement are negative. Constitutional: Denies: fever, chills Respiratory: Denies: cough, dyspnea Cardiovascular: Denies: chest pain, palpitations, edema, syncope Gastrointestinal: Reports: abdominal pain, nausea, vomiting, diarrhea. Denies: hematemesis, melena, hematochezia Genitourinary: Denies: dysuria, hematuria Musculoskeletal: Denies: back pain Skin: Denies: rash Neurological: Denies: headache, weakness Past Medical History Past Medical History: COPD, CVA/TIA, GERD/Reflux, Hyperlipidemia, Hypertension History of Any Multi-Drug Resistant Organisms: MRSA Date of last positivie culture/infection: 03/07/18 MDRO Source:: LEG Past Surgical History: Orthopedic Surgery Additional Past Surgical History / Comment(s): arthroscopy to left knee, right hand Past Anesthesia/Blood Transfusion Reactions: No Reported Reaction Past Psychological History: Bipolar Smoking Status: Former smoker Past Alcohol Use History: None Reported Past Drug Use History: None Reported General Exam General appearance: alert, in no apparent distress Head exam: Present: atraumatic, normocephalic Eye exam: Present: normal appearance. Absent: scleral icterus, conjunctival injection ENT exam: Present: normal oropharynx Neck exam: Present: normal inspection Respiratory exam: Present: normal lung sounds bilaterally. Absent: respiratory distress, wheezes, rales, rhonchi, stridor Cardiovascular Exam: Present: regular rate, normal rhythm, normal heart sounds. Absent: systolic murmur, diastolic murmur, rubs, gallop GI/Abdominal exam: Present: soft. Absent: distended, tenderness, guarding, rebound, rigid, mass Extremities exam: Present: normal inspection, normal capillary refill. Absent: pedal edema, calf tenderness Neurological exam: Present: alert Skin exam: Present: warm, dry, intact, normal color. Absent: rash Course Vital Signs 01/01/19 01/01/19 01/01/19 21:05 21:19 23:13 Temperature 98.1 F Pulse Rate 64 78 Pulse Rate [ 66 Sitting] Pulse Rate [ 75 Standing] Respiratory 18 18 22 Rate Blood Pressure 137/65 122/56 Blood Pressure 127/64 [Sitting] Blood Pressure 112/65 [Standing] O2 Sat by Pulse 98 99 Oximetry 01/02/19 00:00 Temperature 98.2 F Pulse Rate 77 Pulse Rate [ Sitting] Pulse Rate [ Standing] Respiratory 20 Rate Blood Pressure 132/60 Blood Pressure [Sitting] Blood Pressure [Standing] O2 Sat by Pulse 99 Oximetry EKG Findings - EKG Results: EKG: interpreted by ERMD, sinus rhythm, normal axis - Blocks, [place], Hypertrophy, ST Abn: Chamber hypertrophy or enlargement: only voltage criteria for left ventricular hypertrophy Medical Decision Making - Medical Decision Making Patient's 63-year-old man presenting with complaint that he is feeling dehydrated. The labs do show significant dehydration, including the elevated creatinine. This result was explained to the patient and also the fact that we felt he should be seen by the wood milling machine hand. Patient states he has had similar episodes in the past, and that she is able to take fluids the problem resolves. The patient states that he is going to leave, AGAINST MEDICAL ADVICE. He understands that he is risking kidney injury, disability, or . Patient does agree to follow-up. Patient will return should the vomiting recur. - Lab Data Result diagrams: 01/01/19 21:50 01/01/19 21:50 Lab Results 01/01/19 01/01/19 01/01/19 Range/Units 21:50 21:50 21:50 WBC 26.0 H (3.8-10.6) k/uL RBC 4.98 (4.30-5.90) m/uL Hgb 14.9 (13.0-17.5) gm/dL Hct 43.9 (39.0-53.0) % MCV 88.2 (80.0-100.0) fL MCH 29.9 (25.0-35.0) pg MCHC 33.9 (31.0-37.0) g/dL RDW 13.5 (11.5-15.5) % Plt Count 356 (150-450) k/uL Neutrophils % 86 % Lymphocytes % 7 % Monocytes % 5 % Eosinophils % 1 % Basophils % 0 % Neutrophils # 22.5 H (1.3-7.7) k/uL Lymphocytes # 1.9 (1.0-4.8) k/uL Monocytes # 1.3 H (0-1.0) k/uL Eosinophils # 0.2 (0-0.7) k/uL Basophils # 0.0 (0-0.2) k/uL Sodium 140 (137-145) mmol/L Potassium 4.9 (3.5-5.1) mmol/L Chloride 105 (98-107) mmol/L Carbon Dioxide 16 L (22-30) mmol/L Anion Gap 19 mmol/L BUN 43 H (9-20) mg/dL Creatinine 5.27 H (0.66-1.25) mg/dL Est GFR (CKD-EPI)AfAm 12 (>60 ml/min/1.73 sqM) Est GFR (CKD-EPI)NonAf 11 (>60 ml/min/1.73 sqM) Glucose 99 (74-99) mg/dL Calcium 9.5 (8.4-10.2) mg/dL Total Bilirubin 0.4 (0.2-1.3) mg/dL AST 43 (17-59) U/L ALT 32 (21-72) U/L Alkaline Phosphatase 76 (38-126) U/L Troponin I 0.013 (0.000-0.034) ng/mL Total Protein 8.1 (6.3-8.2) g/dL Albumin 4.8 (3.5-5.0) g/dL Amylase 101 (30-110) U/L Lipase 86 (23-300) U/L Urine Color Urine Appearance (Clear) Urine pH (5.0-8.0) Ur Specific [place] (1.001-1.035) Urine Protein (Negative) Urine Glucose (UA) (Negative) Urine Ketones (Negative) Urine Blood (Negative) Urine Nitrite (Negative) Urine Bilirubin (Negative) Urine Urobilinogen (<2.0) mg/dL Ur Leukocyte Esterase (Negative) Urine RBC (0-5) /hpf Urine WBC (0-5) /hpf Urine WBC Clumps (None) /hpf Ur Squamous Epith Cells (0-4) /hpf Ur Transition Epith Cell (0-1) /hpf Amorphous Sediment (None) /hpf Urine Bacteria (None) /hpf Hyaline Casts (0-2) /lpf Granular Casts (0) /lpf Urine Mucus (None) /hpf 01/01/19 Range/Units 23:25 WBC (3.8-10.6) k/uL RBC (4.30-5.90) m/uL Hgb (13.0-17.5) gm/dL Hct (39.0-53.0) % MCV (80.0-100.0) fL MCH (25.0-35.0) pg MCHC (31.0-37.0) g/dL RDW (11.5-15.5) % Plt Count (150-450) k/uL Neutrophils % % Lymphocytes % % Monocytes % % Eosinophils % % Basophils % % Neutrophils # (1.3-7.7) k/uL Lymphocytes # (1.0-4.8) k/uL Monocytes # (0-1.0) k/uL Eosinophils # (0-0.7) k/uL Basophils # (0-0.2) k/uL Sodium (137-145) mmol/L Potassium (3.5-5.1) mmol/L Chloride (98-107) mmol/L Carbon Dioxide (22-30) mmol/L Anion Gap mmol/L BUN (9-20) mg/dL Creatinine (0.66-1.25) mg/dL Est GFR (CKD-EPI)AfAm (>60 ml/min/1.73 sqM) Est GFR (CKD-EPI)NonAf (>60 ml/min/1.73 sqM) Glucose (74-99) mg/dL Calcium (8.4-10.2) mg/dL Total Bilirubin (0.2-1.3) mg/dL AST (17-59) U/L ALT (21-72) U/L Alkaline Phosphatase (38-126) U/L Troponin I (0.000-0.034) ng/mL Total Protein (6.3-8.2) g/dL Albumin (3.5-5.0) g/dL Amylase (30-110) U/L Lipase (23-300) U/L Urine Color Yellow Urine Appearance Cloudy (Clear) Urine pH 5.5 (5.0-8.0) Ur Specific [place] 1.017 (1.001-1.035) Urine Protein 2+ H (Negative) Urine Glucose (UA) Negative (Negative) Urine Ketones Negative (Negative) Urine Blood Moderate H (Negative) Urine Nitrite Negative (Negative) Urine Bilirubin Negative (Negative) Urine Urobilinogen <2.0 (<2.0) mg/dL Ur Leukocyte Esterase Negative (Negative) Urine RBC 3 (0-5) /hpf Urine WBC 24 H (0-5) /hpf Urine WBC Clumps Rare H (None) /hpf Ur Squamous Epith Cells <1 (0-4) /hpf Ur Transition Epith Cell 1 (0-1) /hpf Amorphous Sediment Rare H (None) /hpf Urine Bacteria Rare H (None) /hpf Hyaline Casts 112 H (0-2) /lpf Granular Casts 1 (0) /lpf Urine Mucus Few H (None) /hpf Disposition Clinical Impression: Acute kidney failure Disposition: Left Against Medical Advice Condition: Poor Referrals: None,Stated [REFERRING] - 1-2 days Suni Kamara MD [STAFF PHYSICIAN] - 1-2 days
[2019-01-01] MEDS ORDERED: ONDANSETRON 4 MG/2 ML VIAL IVP STA (22:02)
[2019-01-01] MEDS ORDERED: MAG HYDROX/AL HYDROX/SIMETH 30 ML, HYOSCYAMINE ELIXIR 10 ML, CIMETIDINE HCL 300 MG PO STA ×3 (22:03)
[2019-01-01 22:16] LABS: Basophils % (A) 0 %; Eosinophils # (A) 0.2 k/uL (0-0.7); Eosinophils % (A) 1 %; HCT 43.9 % (39.0-53.0); HGB 14.9 gm/dL (13.0-17.5); Lymphocytes # (A) 1.9 k/uL (1.0-4.8); Lymphocytes % (A) 7 %; MCH 29.9 pg (25.0-35.0); MCHC 33.9 g/dL (31.0-37.0); MCV 88.2 fL (80.0-100.0); Mean Platelet Volume 7.9; Monocytes # (A) 1.3 k/uL (0-1.0); Monocytes % (A) 5 %; Neutrophils # (A) 22.5 k/uL (1.3-7.7); Neutrophils % (A) 86 %; Platelet Count 356 k/uL (150-450); RBC 4.98 m/uL (4.30-5.90); RDW 13.5 % (11.5-15.5)
[2019-01-01 22:25] LABS: Albumin 4.8 g/dL (3.5-5.0); Calcium 9.5 mg/dL (8.4-10.2); Potassium 4.9 mmol/L (3.5-5.1); Total Bilirubin 0.4 mg/dL (0.2-1.3); Total Protein 8.1 g/dL (6.3-8.2)
[2019-01-02 00:10] LABS: Amorphous Sediment,Urine Rare /hpf; Appearance,Urine Cloudy (Clear); Bacteria,Urine Rare /hpf; Bilirubin,Urine Negative (Negative); Blood,Urine Moderate (Negative); Color,Urine Yellow; Glucose,Urine (UA) Negative (Negative); Granular Casts,Urine 1 /lpf (0); Hyaline Casts,Urine 112 /lpf (0-2); Ketones,Urine Negative (Negative); Leukocyte Esterase,Urine Negative (Negative); Mucus,Urine Few /hpf; Nitrite,Urine Negative (Negative); PH, Urine 5.5 (5.0-8.0); Protein,Urine 2+ (Negative); RBC,Urine 3 /hpf (0-5); Specific Gravity,Urine 1.017 (1.001-1.035); Squamous Epithelial Cell,Urine <1 /hpf (0-4); Transitional Epi Cells,Urine 1 /hpf (0-1); Urobilinogen,Urine <2.0 mg/dL (<2.0); WBC,Urine 24 /hpf (0-5)
[2019-01-02 00:28] VITALS: BP 132/60; PULSE 77; RESP 20; TEMP 98.2
== END 2019-01-02 00:32 | disposition left against medical advice (07) ==
LOC: EC 20:46
DX: N17.9 Acute kidney failure, unspecified (principal); F31.9 Bipolar disorder, unspecified; J44.9 Chronic obstructive pulmonary disease, unspecified; E78.5 Hyperlipidemia, unspecified; I10 Essential (primary) hypertension; K21.9 Gastro-esophageal reflux disease without esophagitis; Z79.02 Long term (current) use of antithrombotics/antiplatelets; Z79.82 Long term (current) use of aspirin; Z79.899 Other long term (current) drug therapy; Z87.891 Personal history of nicotine dependence
CPT/HCPCS: 36415; 93005; 80053; 82150; 83690; 84484; 85025; 99284; 96374; J2405; 81001

== ENCOUNTER 2019-11-14 01:40 | Emergency (ER) | payer OTHER ==
[2019-11-14] MEDS ORDERED: SODIUM CHLORIDE 0.9% 1,000 ML IV STA (01:46)
--- NOTE | 2019-11-14 01:48 | ED ---
Altered Mental Status HPI - General Stated Complaint: Overdose Time Seen by Provider: 11/14/19 01:44 - History of Present Illness Initial Comments: Gonzalez is a 64-year-old male who is brought to the ER today by EMS with a police escort. Apparently family called 911 when they found the patient unresponsive with agonal breathing. Apparently the patient with drinking heavily. Upon EMS arrival they reported the patient had agonal respirations is given 2 mg IM Narcan. He then became awake and combative. Patient attempted to fight EMS and police and had to be restrained in route to the hospital. Patient reportedly took some Vicodin and Xanax. - Related Data Home Medications Medication Instructions Recorded Confirmed ALPRAZolam [Xanax] 1 - 2 mg PO BID PRN 12/27/16 01/01/19 Atorvastatin Calcium [Lipitor] 40 mg PO HS 07/15/17 01/01/19 Clopidogrel [Plavix] 75 mg PO DAILY 07/15/17 01/01/19 Hydrochlorothiazide [Hydrodiuril] 25 mg PO DAILY 07/15/17 01/01/19 Lisinopril [Prinivil] 10 mg PO DAILY 07/15/17 01/01/19 amLODIPine [Norvasc] 10 mg PO DAILY 07/15/17 01/01/19 Aspirin EC [Ecotrin] 325 mg PO DAILY 01/03/18 01/01/19 FLUoxetine HCL [PROzac] 20 mg PO DAILY 01/03/18 01/01/19 Albuterol Inhaler (Mhu) [Ventolin 1 - 2 puff INHALATION RT-Q6H PRN 03/07/18 01/01/19 Hfa Inhaler] Hydrocodone/Acetaminophen [[place] 1 tab PO TID PRN 01/01/19 01/01/19 10-325] Ibuprofen [Motrin] 800 mg PO BID 01/01/19 01/01/19 Ranitidine HCl [Zantac] 150 mg PO BID 01/01/19 01/01/19 Allergies Allergy/AdvReac Type Severity Reaction Status Date / Time No Known Allergies Allergy Verified 01/01/19 21:14 Review of Systems ROS Statement: Those systems with pertinent positive or pertinent negative responses have been documented in the HPI. ROS Other: All systems not noted in ROS Statement are negative. Past Medical History Past Medical History: COPD, CVA/TIA, GERD/Reflux, Hyperlipidemia, Hypertension History of Any Multi-Drug Resistant Organisms: MRSA Date of last positivie culture/infection: 03/07/18 MDRO Source:: LEG Past Surgical History: Orthopedic Surgery Additional Past Surgical History / Comment(s): arthroscopy to left knee, right hand Past Anesthesia/Blood Transfusion Reactions: No Reported Reaction Past Psychological History: Bipolar Smoking Status: Former smoker Past Alcohol Use History: None Reported Past Drug Use History: None Reported General Exam - General Exam Comments Initial Comments: Physical Exam GENERAL: Patient is well-developed and well-nourished. Patient is nontoxic and well-hydrated and is in no distress. HENT: Normocephalic Abrasion on right side of face EYES: PERRL, EOMI PULMONARY: Unlabored respirations. No audible rales rhonchi or wheezing was noted. CARDIOVASCULAR: RRR ABDOMEN: Soft and nontender with normal bowel sounds. SKIN: Abrasion on face as noted above : Deferred NEUROLOGIC: Patient is alert and oriented x3. Moving all extremities spontaneously MUSCULOSKELETAL: Normal extremities with adequate strength and full range of motion. No lower extremity swelling or edema. No calf tenderness. PSYCHIATRIC: Agitated Course Vital Signs 11/14/19 01:42 Pulse Rate 113 H Respiratory 19 Rate Blood Pressure 160/92 O2 Sat by Pulse 96 Oximetry Medical Decision Making - Medical Decision Making Patient care was discussed with patient's daughter who is concerned the patient may have had a stroke because he was unresponsive she states that there is no chance he had any other medications despite the fact that he admitted to and he responded Narcan. She will not come to the hospital to pick him up Patient is refusing all interventions and is combative with staff, this time we will observe the patient to sobriety Patient rested comfortably, woke up at 6:30 am requesting to go home. Patient awake, alert, cooperative, able to walk straight line, no signs of intoxication. Patient discharged home - Lab Data Result diagrams: 11/14/19 02:10 11/14/19 02:10 Lab Results 11/14/19 11/14/19 Range/Units 02:10 02:10 WBC 11.2 H (3.8-10.6) k/uL RBC 4.96 (4.30-5.90) m/uL Hgb 14.4 (13.0-17.5) gm/dL Hct 44.5 (39.0-53.0) % MCV 89.7 (80.0-100.0) fL MCH 29.0 (25.0-35.0) pg MCHC 32.3 (31.0-37.0) g/dL RDW 13.9 (11.5-15.5) % Plt Count 330 (150-450) k/uL Neutrophils % 52 % Lymphocytes % 38 % Monocytes % 4 % Eosinophils % 2 % Basophils % 1 % Neutrophils # 5.9 (1.3-7.7) k/uL Lymphocytes # 4.3 (1.0-4.8) k/uL Monocytes # 0.4 (0-1.0) k/uL Eosinophils # 0.2 (0-0.7) k/uL Basophils # 0.1 (0-0.2) k/uL Sodium 139 (137-145) mmol/L Potassium 4.0 (3.5-5.1) mmol/L Chloride 109 H (98-107) mmol/L Carbon Dioxide 17 L (22-30) mmol/L Anion Gap 13 mmol/L BUN 18 (9-20) mg/dL Creatinine 1.18 (0.66-1.25) mg/dL Est GFR (CKD-EPI)AfAm 76 (>60 ml/min/1.73 sqM) Est GFR (CKD-EPI)NonAf 65 (>60 ml/min/1.73 sqM) Glucose 134 H (74-99) mg/dL Calcium 9.5 (8.4-10.2) mg/dL Total Bilirubin 0.3 (0.2-1.3) mg/dL AST 33 (17-59) U/L ALT 23 (4-49) U/L Alkaline Phosphatase 106 (38-126) U/L Total Protein 7.5 (6.3-8.2) g/dL Albumin 4.7 (3.5-5.0) g/dL Salicylates <1.0 mg/dL Acetaminophen <10.0 ug/mL Serum Alcohol 162 mg/dL Disposition Clinical Impression: Alcohol intoxication Disposition: HOME SELF-CARE Condition: Stable Instructions (If sedation given, give patient instructions): Adult Overdose (ED) Is patient prescribed a controlled substance at d/c from ED?: No Referrals: Zoie Olvera MD [Primary Care Provider] - 1-2 days
[2019-11-14 01:49] VITALS: BP 160/92; PULSE 113; RESP 19
[2019-11-14 02:21] LABS: Basophils # (A) 0.1 k/uL (0-0.2); Basophils % (A) 1 %; Eosinophils # (A) 0.2 k/uL (0-0.7); Eosinophils % (A) 2 %; HCT 44.5 % (39.0-53.0); HGB 14.4 gm/dL (13.0-17.5); Lymphocytes # (A) 4.3 k/uL (1.0-4.8); Lymphocytes % (A) 38 %; MCHC 32.3 g/dL (31.0-37.0); MCV 89.7 fL (80.0-100.0); Mean Platelet Volume 8.1; Monocytes # (A) 0.4 k/uL (0-1.0); Monocytes % (A) 4 %; Neutrophils # (A) 5.9 k/uL (1.3-7.7); Neutrophils % (A) 52 %; Platelet Count 330 k/uL (150-450); RBC 4.96 m/uL (4.30-5.90); RDW 13.9 % (11.5-15.5); WBC 11.2 k/uL (3.8-10.6)
[2019-11-14 02:37] LABS: ALT 23 U/L (4-49); AST 33 U/L (17-59); Acetaminophen <10.0 ug/mL; African American GFR (CKD) 76 (>60 ml/min/1.73 sqM); Albumin 4.7 g/dL (3.5-5.0); Alkaline Phosphatase 106 U/L (38-126); Anion Gap 13 mmol/L; Blood Urea Nitrogen 18 mg/dL (9-20); Calcium 9.5 mg/dL (8.4-10.2); Carbon Dioxide 17 mmol/L (22-30); Chloride 109 mmol/L (98-107); Glucose 134 mg/dL (74-99); Non-African American GFR(CKD) 65 (>60 ml/min/1.73 sqM); Salicylate <1.0 mg/dL; Sodium 139 mmol/L (137-145); Total Bilirubin 0.3 mg/dL (0.2-1.3); Total Protein 7.5 g/dL (6.3-8.2)
[2019-11-14 02:50] LABS: Alcohol 162 mg/dL
== END 2019-11-14 06:58 | disposition home or self-care (01) ==
LOC: EC 01:40
DX: F10.129 Alcohol abuse with intoxication, unspecified (principal); T50.901A Poisoning by unspecified drugs, medicaments and biological substances, accidental (unintentional), initial encounter; J44.9 Chronic obstructive pulmonary disease, unspecified; K21.9 Gastro-esophageal reflux disease without esophagitis; E78.5 Hyperlipidemia, unspecified; I10 Essential (primary) hypertension; F31.9 Bipolar disorder, unspecified; Y90.6 Blood alcohol level of 120-199 mg/100 ml; Z86.73 Personal history of transient ischemic attack (TIA), and cerebral infarction without residual deficits; Z86.14 Personal history of Methicillin resistant Staphylococcus aureus infection; Z87.891 Personal history of nicotine dependence; Z79.02 Long term (current) use of antithrombotics/antiplatelets; Z79.82 Long term (current) use of aspirin; Z79.1 Long term (current) use of non-steroidal anti-inflammatories (NSAID); Z79.899 Other long term (current) drug therapy; Z53.29 Procedure and treatment not carried out because of patient's decision for other reasons
CPT/HCPCS: 36415; 80053; 80320; 80329; 83520; 85025; 99284

== ENCOUNTER 2024-01-19 22:29 | Emergency (ER) | payer MEDICARE, OTHER ==
[2024-01-19] MEDS ORDERED: IPRATROPIUM-ALBUTEROL 3 ML NEB INHALATION STA (22:54)
--- NOTE | 2024-01-19 22:57 | ED ---
General Adult HPI - General Chief complaint: Shortness of Breath Stated complaint: Shortness of Breath Time Seen by Provider: 01/19/24 22:42 Source: patient Mode of arrival: EMS Limitations: no limitations - History of Present Illness Initial comments: Dictation was produced using [employer] dictation software. please excuse any grammatical, word or spelling errors. Chief Complaint: 68-year-old male with shortness of breath History of Present Illness: Patient 68-year-old male presents emergency department shortness of breath. Patient recently started new medications 4 days ago. He has not really seen a primary care doctor in the last several years until 4 days ago. Patient states that he has been short of breath for the last 3 hours. Patient has history of COPD. at the bedside states that patient ran out of his inhaler medications. Patient Nuys any chest pain. Denies any fever chills or night sweats. Patient arrived via EMS. States that he lives at a hotel currently. The ROS documented in this emergency department record has been reviewed and confirmed by me. Those systems with pertinent positive or negative responses have been documented in the HPI. All other systems are other negative and/or noncontributory. - Related Data Home Medications Medication Instructions Recorded Confirmed ALPRAZolam [Xanax] 1 - 2 mg PO BID PRN 12/27/16 01/01/19 Atorvastatin Calcium [Lipitor] 40 mg PO HS 07/15/17 01/01/19 Clopidogrel [Plavix] 75 mg PO DAILY 07/15/17 01/01/19 amLODIPine [Norvasc] 10 mg PO DAILY 07/15/17 01/01/19 hydroCHLOROthiazide [Hydrodiuril] 25 mg PO DAILY 07/15/17 01/01/19 lisinopriL [Prinivil] 10 mg PO DAILY 07/15/17 01/01/19 Aspirin EC [Ecotrin] 325 mg PO DAILY 01/03/18 01/01/19 FLUoxetine HCL [PROzac] 20 mg PO DAILY 01/03/18 01/01/19 Albuterol Inhaler [Ventolin Hfa 1 - 2 puff INHALATION RT-Q6H PRN 03/07/18 01/01/19 Inhaler] Hydrocodone/Acetaminophen [[place] 1 tab PO TID PRN 01/01/19 01/01/19 10-325] Ibuprofen [Motrin] 800 mg PO BID 01/01/19 01/01/19 Ranitidine HCl [Zantac] 150 mg PO BID 01/01/19 01/01/19 Allergies Allergy/AdvReac Type Severity Reaction Status Date / Time No Known Allergies Allergy Verified 01/19/24 22:40 Review of Systems ROS Statement: Those systems with pertinent positive or pertinent negative responses have been documented in the HPI. ROS Other: All systems not noted in ROS Statement are negative. Past Medical History Past Medical History: COPD, CVA/TIA, GERD/Reflux, Hyperlipidemia, Hypertension Additional Past Medical History / Comment(s): speech impediment History of Any Multi-Drug Resistant Organisms: MRSA Date of last positivie culture/infection: 03/07/18 MDRO Source:: LEG Past Surgical History: Orthopedic Surgery Additional Past Surgical History / Comment(s): arthroscopy to left knee, right hand Past Anesthesia/Blood Transfusion Reactions: No Reported Reaction Past Psychological History: Bipolar Smoking Status: Current every day smoker Past Alcohol Use History: None Reported Past Drug Use History: None Reported General Exam - General Exam Comments Initial Comments: PHYSICAL EXAM: General Impression: Alert and oriented x3, not in acute distress HEENT: Normocephalic atraumatic, extra-ocular movements intact, pupils equal and reactive to light bilaterally, mucous membranes moist. Cardiovascular: Heart regular rate and rhythm Chest: Able to complete full sentences, no retractions, no tachypnea Abdomen: abdomen soft, non-tender, non-distended, no organomegaly Musculoskeletal: Pulses present and equal in all extremities, no peripheral edema Motor: no focal deficits noted Neurological: CN II-XII grossly intact, no focal motor or sensory deficits noted Skin: Intact with no visualized rashes Psych: Normal affect and mood Limitations: no limitations Course Vital Signs 01/19/24 22:33 Temperature 97.5 F L Pulse Rate 55 L Respiratory 19 Rate Blood Pressure 190/80 O2 Sat by Pulse 98 Oximetry EKG Findings - EKG Comments: EKG Findings:: My EKG interpretation: Ventricular rate 62, sinus rhythm,. 164, QRS 85, QTc 451. No SD prolongation, no QTC prolongation, no ST or T-wave changes noted. EKG compared to January 01, 2019 showing no changes. Overall, this EKG is unremarkable Medical Decision Making - Medical Decision Making Was pt. sent in by a medical professional or institution (Dr., PA, EDDY CURRENT INSPECTOR, urgent care, hospital, or long-term...) When possible be specific @ -No Did you speak to anyone other than the patient for history (EMS, parent, family, police, friend...)? What history was obtained from this source @ -No Did you review nursing and triage notes (agree or disagree)? Why? @ -I reviewed and agree with nursing and triage notes Were old charts reviewed (outside hosp., previous admission, EMS record, old EKG, old radiological studies, urgent care reports/EKG's, long-term records)? Report findings @ -No old charts were reviewed Differential Diagnosis (chest pain, altered mental status, abdominal pain women, abdominal pain men, vaginal bleeding, musculoskeletal, weakness, fever, dyspnea, syncope, headache, dizziness, GI bleed, back pain, seizure, CVA, palpatations, mental health)? @ -Differential Dyspnea: Coronary syndrome, arrhythmia, tamponade, asthma, COPD, pulmonary embolism, pneumonia, pneumothorax, pulmonary effusion, anaphylaxis, diabetic ketoacidosis, flailed chest, pulmonary contusion, diaphragmatic rupture, anemia, neurom uscular, this is not meant to be an all-inclusive list. EKG interpreted by me (3pts min.). @ -See above X-rays interpreted by me (1pt min.). @ -Chest x-ray shows no acute processes CT interpreted by me (1pt min.). @ -None done U/S interpreted by me (1pt. min.). @ -None done What testing was considered but not performed or refused? (CT, X-rays, U/S, labs)? Why? @ -None What meds were considered but not given or refused? Why? @ -None Was smoking cessation discussed for >3mins.? @ -No Were there social determinants of health that impacted care today? How? (Homelessness, low income, unemployed, alcoholism, drug addiction, transportation, low edu. Level, literacy, decrease access to med. care, group home, rehab)? @ -No Was there de-escalation of care discussed even if they declined (Discuss DNR or withdrawal of care, Hospice)? DNR status @ -No What co-morbidities impacted this encounter? (DM, HTN, Smoking, COPD, CAD, Cancer, CVA, ARF, Chemo, Hep., AIDS, mental health diagnosis, sleep apnea, morbid obesity)? @ -History of COPD, tobacco use history Was patient admitted / discharged? Hospital course, mention meds given and route, prescriptions, significant lab abnormalities, going to OR and other pertinent info. @ -68-year-old male presents to the emergency department for shortness of breath. Presents with EMS. Vital signs upon arrival shows blood pressure 190/80. Physical exam shows nondistressed male with clear lung sounds. EKG nonspecific but no obvious signs of ischemia infarction. Labs are obtained. Elevated renal function with a creatinine of 1.6. Troponin is elevated at 0.043. Normal BNP. Viral testing negative. X-ray is unremarkable. Clinical presentation concerning for NSTEMI. Discussed with patient recommend hospital admission for cardiac monitoring and cardiology consultation. Patient refused like to sign out AGAINST MEDICAL ADVICE. Understands that there is concern for cardiac ischemia with elevated troponins which may be elevated from renal cause however difficult to attribute elevated troponin just from elevated renal function especially since he has shortness of breath. Discussed with patient that he may have worsening symptoms including worsening shortness of breath, chest pain and ultimately . Risks, Benefits, and Treatment alternatives were discussed in detail with the patient. The patient is alert and oriented X 3 and has the capacity to make an informed decision. The risks of increased morbidity including the possibly of were explained to and understood by the patient who is choosing to leave against medical advice. The patient is encouraged to return any time should they want further treatment and diagnostic investigation. Did you discuss the management of the patient with other professionals (professionals i.e. , PA, EDDY CURRENT INSPECTOR, lab, RT, psych nurse, manager social media, heavy equipment operator/paver, teacher, planned giving officer, rifle case repairer)? Give summary @ -No Was critical care preformed (if so, how long)? @ -Yes, 33 minutes for NSTEMI Undiagnosed new problem with uncertain prognosis? @ -No Drug Therapy requiring intensive monitoring for toxicity (Heparin, Nitro, Insulin, Cardizem)? @ -No Were any procedures done? @ -No Diagnosis/symptom? Acute, or Chronic, or Acute on Chronic? Uncomplicated (without systemic symptoms) or Complicated (systemic symptoms)? @ -Dyspnea Side effects of treatment? @ -No Exacerbation, Progression, or Severe Exacerbation? @ -No Poses a threat to life or bodily function? How? (Chest pain, USA, NC, pneumonia, PE, COPD, DKA, ARF, appy, cholecystitis, CVA, Diverticulitis, Homicidal, Suicid al, threat to staff... and all critical care pts) @ -yes - Lab Data Result diagrams: 01/19/24 23:00 01/19/24 23:00 Lab Results 01/19/24 01/19/24 01/19/24 Range/Units 23:00 23:00 23:00 WBC 6.8 (3.8-10.6) k/uL RBC 4.09 L (4.30-5.90) m/uL Hgb 12.5 L (13.0-17.5) gm/dL Hct 36.9 L (39.0-53.0) % MCV 90.3 (80.0-100.0) fL MCH 30.7 (25.0-35.0) pg MCHC 34.0 (31.0-37.0) g/dL RDW 13.7 (11.5-15.5) % Plt Count 211 (150-450) k/uL MPV 9.5 Neutrophils % 59 % Lymphocytes % 30 % Monocytes % 6 % Eosinophils % 3 % Basophils % 1 % Neutrophils # 4.0 (1.3-7.7) k/uL Lymphocytes # 2.1 (1.0-4.8) k/uL Monocytes # 0.4 (0-1.0) k/uL Eosinophils # 0.2 (0-0.7) k/uL Basophils # 0.0 (0-0.2) k/uL Sodium 139 (137-145) mmol/L Potassium 4.3 (3.5-5.1) mmol/L Chloride 110 H (98-107) mmol/L Carbon Dioxide 23 (22-30) mmol/L Anion Gap 6 mmol/L BUN 34 H (9-20) mg/dL Creatinine 1.60 H (0.66-1.25) mg/dL Est GFR (CKD-EPI)AfAm 51 (>60 ml/min/1.73 sqM) Est GFR (CKD-EPI)NonAf 44 (>60 ml/min/1.73 sqM) Glucose 113 H (74-99) mg/dL Calcium 8.5 (8.4-10.2) mg/dL Troponin I 0.043 H* (0.000-0.034) ng/mL NT-Pro-B Natriuret Pep 634 pg/mL Influenza Type A (PCR) (Not Detectd) Influenza Type B (PCR) (Not Detectd) RSV (PCR) (Not Detectd) SARS-CoV-2 (PCR) (Not Detectd) 01/19/24 Range/Units 23:00 WBC (3.8-10.6) k/uL RBC (4.30-5.90) m/uL Hgb (13.0-17.5) gm/dL Hct (39.0-53.0) % MCV (80.0-100.0) fL MCH (25.0-35.0) pg MCHC (31.0-37.0) g/dL RDW (11.5-15.5) % Plt Count (150-450) k/uL MPV Neutrophils % % Lymphocytes % % Monocytes % % Eosinophils % % Basophils % % Neutrophils # (1.3-7.7) k/uL Lymphocytes # (1.0-4.8) k/uL Monocytes # (0-1.0) k/uL Eosinophils # (0-0.7) k/uL Basophils # (0-0.2) k/uL Sodium (137-145) mmol/L Potassium (3.5-5.1) mmol/L Chloride (98-107) mmol/L Carbon Dioxide (22-30) mmol/L Anion Gap mmol/L BUN (9-20) mg/dL Creatinine (0.66-1.25) mg/dL Est GFR (CKD-EPI)AfAm (>60 ml/min/1.73 sqM) Est GFR (CKD-EPI)NonAf (>60 ml/min/1.73 sqM) Glucose (74-99) mg/dL Calcium (8.4-10.2) mg/dL Troponin I (0.000-0.034) ng/mL NT-Pro-B Natriuret Pep pg/mL Influenza Type A (PCR) Not Detected (Not Detectd) Influenza Type B (PCR) Not Detected (Not Detectd) RSV (PCR) Not Detected (Not Detectd) SARS-CoV-2 (PCR) Not Detected (Not Detectd) Disposition Clinical Impression: NSTEMI (non-ST elevated myocardial infarction) Disposition: LEFT AGAINST MEDICAL ADVICE Condition: Fair Instructions (If sedation given, give patient instructions): Heart Attack (DC) Is patient prescribed a controlled substance at d/c from ED?: No Referrals: Amelia Jc MD [Primary Care Provider] - 1-2 days Time of Disposition: 00:12
[2024-01-19 23:19] LABS: Basophils % (A) 1 %; Eosinophils # (A) 0.2 k/uL (0-0.7); Eosinophils % (A) 3 %; HCT 36.9 % (39.0-53.0); HGB 12.5 gm/dL (13.0-17.5); Lymphocytes # (A) 2.1 k/uL (1.0-4.8); Lymphocytes % (A) 30 %; MCH 30.7 pg (25.0-35.0); MCV 90.3 fL (80.0-100.0); Mean Platelet Volume 9.5; Monocytes # (A) 0.4 k/uL (0-1.0); Monocytes % (A) 6 %; Neutrophils % (A) 59 %; Platelet Count 211 k/uL (150-450); RBC 4.09 m/uL (4.30-5.90); RDW 13.7 % (11.5-15.5); WBC 6.8 k/uL (3.8-10.6)
[2024-01-19 23:26] LABS: African American GFR (CKD) 51 (>60 ml/min/1.73 sqM); Anion Gap 6 mmol/L; Blood Urea Nitrogen 34 mg/dL (9-20); Calcium 8.5 mg/dL (8.4-10.2); Carbon Dioxide 23 mmol/L (22-30); Chloride 110 mmol/L (98-107); Glucose 113 mg/dL (74-99); Non-African American GFR(CKD) 44 (>60 ml/min/1.73 sqM); Potassium 4.3 mmol/L (3.5-5.1); Sodium 139 mmol/L (137-145)
[2024-01-19 23:36] LABS: NT-Pro-B-Type Natriuretic Pept 634 pg/mL
[2024-01-20] MEDS: ASPIRIN 81 MG PO STA (00:04)
[2024-01-20 00:17] VITALS: BP 159/68; PULSE 63; RESP 18; TEMP 97.8
--- NOTE | 2024-01-20 03:21 | XR ---
EXAM: XR Chest, 2 Views CLINICAL HISTORY: ITS.REASON XR Reason: dyspnea TECHNIQUE: Frontal and lateral views of the chest. COMPARISON: No relevant prior studies available. FINDINGS: Lungs: Unremarkable. No consolidation. Pleural space: Unremarkable. No pneumothorax. Heart: Unremarkable. No cardiomegaly. Mediastinum: Unremarkable. Normal mediastinal contour. Bones/joints: Unremarkable. No acute fracture. IMPRESSION: Normal chest x-rays.
== END 2024-01-20 00:26 | disposition left against medical advice (07) ==
LOC: EC 22:29
CPT/HCPCS: 36415; 71046; 80048; 83880; 84484; 85025; 87636; 93005; 99291

== ENCOUNTER 2024-01-29 07:50 | Inpatient (IN) | payer MEDICARE, OTHER ==
[2024-01-29] MEDS: NITROGLYCERIN OINT 1 INCH/GM PACKET TOPICAL STA (08:18)
[2024-01-29] MEDS: ASPIRIN 81 MG PO STA (08:18)
--- NOTE | 2024-01-29 08:18 | ED ---
General Adult HPI - General Chief complaint: Shortness of Breath Stated complaint: SOB Time Seen by Provider: 01/29/24 08:00 Source: patient, RN notes reviewed Mode of arrival: ambulatory Limitations: no limitations - History of Present Illness Initial comments: Patient is a 68-year-old male present to the emergency department with complaints with difficulty breathing. Onset of symptoms was last night and has been continuous. No cough. Patient has had some cold sweats and lightheadedness. No chest discomfort. Patient did have similar symptoms last week however left the hospital AGAINST MEDICAL ADVICE. Patient also complains of some discomfort and coolness of his right foot over the past couple of months. - Related Data Home Medications Medication Instructions Recorded Confirmed ALPRAZolam [Xanax] 1 - 2 mg PO BID PRN 12/27/16 01/01/19 Atorvastatin Calcium [Lipitor] 40 mg PO HS 07/15/17 01/01/19 Clopidogrel [Plavix] 75 mg PO DAILY 07/15/17 01/01/19 amLODIPine [Norvasc] 10 mg PO DAILY 07/15/17 01/01/19 hydroCHLOROthiazide [Hydrodiuril] 25 mg PO DAILY 07/15/17 01/01/19 lisinopriL [Prinivil] 10 mg PO DAILY 07/15/17 01/01/19 Aspirin EC [Ecotrin] 325 mg PO DAILY 01/03/18 01/01/19 FLUoxetine HCL [PROzac] 20 mg PO DAILY 01/03/18 01/01/19 Albuterol Inhaler [Ventolin Hfa 1 - 2 puff INHALATION RT-Q6H PRN 03/07/18 01/01/19 Inhaler] Hydrocodone/Acetaminophen [[place]osa 1 tab PO TID PRN 01/01/19 01/01/19 10-325] Ibuprofen [Motrin] 800 mg PO BID 01/01/19 01/01/19 Ranitidine HCl [Zantac] 150 mg PO BID 01/01/19 01/01/19 Allergies Allergy/AdvReac Type Severity Reaction Status Date / Time No Known Allergies Allergy Verified 01/19/24 22:40 Review of Systems ROS Statement: Those systems with pertinent positive or pertinent negative responses have been documented in the HPI. ROS Other: All systems not noted in ROS Statement are negative. Constitutional: Denies: fever Eyes: Denies: eye pain ENT: Denies: ear pain Respiratory: Reports: as per HPI, dyspnea. Denies: cough Cardiovascular: Denies: chest pain Endocrine: Reports: fatigue Gastrointestinal: Denies: abdominal pain Musculoskeletal: Denies: back pain Past Medical History Past Medical History: COPD, CVA/TIA, GERD/Reflux, Hyperlipidemia, Hypertension Additional Past Medical History / Comment(s): speech impediment History of Any Multi-Drug Resistant Organisms: MRSA Date of last positivie culture/infection: 03/07/18 MDRO Source:: LEG Past Surgical History: Orthopedic Surgery Additional Past Surgical History / Comment(s): arthroscopy to left knee, right hand Past Anesthesia/Blood Transfusion Reactions: No Reported Reaction Past Psychological History: Bipolar Smoking Status: Current every day smoker Past Alcohol Use History: None Reported Past Drug Use History: None Reported General Exam Limitations: no limitations General appearance: alert, in no apparent distress Head exam: Present: normocephalic Eye exam: Present: normal appearance Neck exam: Present: normal inspection Respiratory exam: Present: normal lung sounds bilaterally Cardiovascular Exam: Present: regular rate, normal rhythm Expanded Peripheral pulses: 1+: Posterior Tibialis (R), Dorsalis Pedis (R), 2+: Radial (R), Radial (L), Posterior Tibialis (L), Dorsalis Pedis (L) GI/Abdominal exam: Present: soft. Absent: tenderness Extremities exam: Present: calf tenderness (r Sided) Back exam: Present: normal inspection Neurological exam: Present: alert. Absent: motor sensory deficit Psychiatric exam: Present: normal affect, normal mood Skin exam: Present: other (Right distal one third of the foot with mild pallor. There is minimal coolness. Cap refill 2 to 3 seconds) Course Vital Signs 01/29/24 01/29/24 01/29/24 07:54 08:12 10:14 Temperature 97.5 F L Pulse Rate 57 L 63 52 L Respiratory 18 20 16 Rate Blood Pressure 172/78 186/78 180/85 O2 Sat by Pulse 99 98 98 Oximetry EKG Findings - EKG Results: EKG: interpreted by ERMD (LVH with repolarization changes), sinus rhythm, normal axis EKG shows: bradycardia Medical Decision Making - Medical Decision Making Was pt. sent in by a medical professional or institution (, PA, CYBER LEGAL ADVISOR, urgent care, hospital, or care home...) When possible be specific @ -No Did you speak to anyone other than the patient for history (EMS, parent, family, police, friend...)? What history was obtained from this source @ -Family is present and helps provide history including patient's current symp toms Did you review nursing and triage notes (agree or disagree)? Why? @ -I reviewed and agree with nursing and triage notes Were old charts reviewed (outside hosp., previous admission, EMS record, old EKG, old radiological studies, urgent care reports/EKG's, care home records)? Report findings @ -Previous visit and recommendations reviewed including that patient left AGAINST MEDICAL ADVICE Differential Diagnosis (chest pain, altered mental status, abdominal pain women, abdominal pain men, vaginal bleeding, weakness, fever, dyspnea, syncope, headache, dizziness, GI bleed, back pain, seizure, CVA, palpatations, mental health, musculoskeletal)? @ -Differential Dyspnea: Coronary syndrome, arrhythmia, tamponade, asthma, COPD, pulmonary embolism, pneumonia, pneumothorax, pulmonary effusion, anaphylaxis, diabetic ketoacidosis, flailed chest, pulmonary contusion, diaphragmatic rupture, anemia, neuromuscular, this is not meant to be an all-inclusive list. EKG interpreted by me (3pts min.). @ -As above X-rays interpreted by me (1pt min.). @ -X-ray shows no acute process CT interpreted by me (1pt min.). @ -None done U/S interpreted by me (1pt. min.). @ -None done What testing was considered but not performed or refused? (CT, X-rays, U/S, labs)? Why? @ -Consider CT scan of the chest however D-dimer is not positive What meds were considered but not given or refused? Why? @ -None Did you discuss the management of the patient with other professionals (professionals i.e. DrEly, PA, CYBER LEGAL ADVISOR, lab, RT, psych nurse, social work case manager, mixer blender, teacher, sales and service officer, nurse case management)? Give summary @ -Case was discussed with Dr. Haynes who will admit his patient Was smoking cessation discussed for >3mins.? @ -No Was critical care preformed (if so, how long)? @ -32 minutes critical care time Were there social determinants of health that impacted care today? How? (Homelessness, low income, unemployed, alcoholism, drug addiction, transportation, low edu. Level, literacy, decrease access to med. care, custodial, rehab)? @ -No Was there de-escalation of care discussed even if they declined (Discuss DNR or withdrawal of care, Hospice)? DNR status @ -No What co-morbidities impacted this encounter? (DM, HTN, Smoking, COPD, CAD, Cancer, CVA, ARF, Chemo, Hep., AIDS, mental health diagnosis, sleep apnea, morbid obesity)? @ -None Was patient admitted / discharged? Hospital course, mention meds given and route, prescriptions, significant lab abnormalities, going to OR and other perti nent info. @ -Patient presents with dyspnea and diaphoresis. Elevated troponin concerning for potential mild non-ST elevation CT. Patient also has arterial insufficiency to the right lower leg which will also benefit from heparin and vascular consult. Admission orders written. Consults placed Undiagnosed new problem with uncertain prognosis? @ -No Drug Therapy requiring intensive monitoring for toxicity (Heparin, Nitro, Insulin, Cardizem)? @ -Heparin drip Were any procedures done? @ -No Diagnosis/symptom? @ -Non-ST elevation CT, arterial insufficiency Acute, or Chronic, or Acute on Chronic? @ -Acute, acute on chronic Uncomplicated (without systemic symptoms) or Complicated (systemic symptoms)? @ -Default Side effects of treatment? @ -No Exacerbation, Progression, or Severe Exacerbation? @ -No Poses a threat to life or bodily function? How? (Chest pain, USA, CT, pneumonia, PE, COPD, DKA, ARF, appy, cholecystitis, CVA, Diverticulitis, Homicidal, Suicidal, threat to staff... and all critical care pts) @ -Threat to cardiac and limb - Lab Data Result diagrams: 01/29/24 08:22 01/29/24 08:22 Lab Results 01/29/24 01/29/24 01/29/24 Range/Units 08:22 08:22 08:22 WBC 8.0 (3.8-10.6) k/uL RBC 4.52 (4.30-5.90) m/uL Hgb 13.8 (13.0-17.5) gm/dL Hct 40.8 (39.0-53.0) % MCV 90.4 (80.0-100.0) fL MCH 30.5 (25.0-35.0) pg MCHC 33.8 (31.0-37.0) g/dL RDW 13.4 (11.5-15.5) % Plt Count 258 (150-450) k/uL MPV 9.8 Neutrophils % 64 % Lymphocytes % 26 % Monocytes % 5 % Eosinophils % 3 % Basophils % 1 % Neutrophils # 5.1 (1.3-7.7) k/uL Lymphocytes # 2.0 (1.0-4.8) k/uL Monocytes # 0.4 (0-1.0) k/uL Eosinophils # 0.3 (0-0.7) k/uL Basophils # 0.1 (0-0.2) k/uL PT 10.3 (10.0-12.5) sec INR 0.9 (<1.2) APTT 33.5 H (22.0-30.0) sec D-Dimer 0.57 (<0.60) mg/L FEU Sodium 137 (137-145) mmol/L Potassium 5.1 (3.5-5.1) mmol/L Chloride 109 H (98-107) mmol/L Carbon Dioxide 24 (22-30) mmol/L Anion Gap 4 mmol/L BUN 31 H (9-20) mg/dL Creatinine 0.98 (0.66-1.25) mg/dL Est GFR (CKD-EPI)AfAm >90 (>60 ml/min/1.73 sqM) Est GFR (CKD-EPI)NonAf 80 (>60 ml/min/1.73 sqM) Glucose 91 (74-99) mg/dL Plasma Lactic Acid Nate (0.7-2.0) mmol/L Calcium 9.9 (8.4-10.2) mg/dL Magnesium 1.8 (1.6-2.3) mg/dL Total Bilirubin 0.3 (0.2-1.3) mg/dL AST 31 (17-59) U/L ALT 20 (4-49) U/L Alkaline Phosphatase 85 (38-126) U/L Troponin I (0.000-0.034) ng/mL NT-Pro-B Natriuret Pep 792 pg/mL Total Protein 7.0 (6.3-8.2) g/dL Albumin 4.5 (3.5-5.0) g/dL 01/29/24 01/29/24 Range/Units 08:22 08:22 WBC (3.8-10.6) k/uL RBC (4.30-5.90) m/uL Hgb (13.0-17.5) gm/dL Hct (39.0-53.0) % MCV (80.0-100.0) fL MCH (25.0-35.0) pg MCHC (31.0-37.0) g/dL RDW (11.5-15.5) % Plt Count (150-450) k/uL MPV Neutrophils % % Lymphocytes % % Monocytes % % Eosinophils % % Basophils % % Neutrophils # (1.3-7.7) k/uL Lymphocytes # (1.0-4.8) k/uL Monocytes # (0-1.0) k/uL Eosinophils # (0-0.7) k/uL Basophils # (0-0.2) k/uL PT (10.0-12.5) sec INR (<1.2) APTT (22.0-30.0) sec D-Dimer (<0.60) mg/L FEU Sodium (137-145) mmol/L Potassium (3.5-5.1) mmol/L Chloride (98-107) mmol/L Carbon Dioxide (22-30) mmol/L Anion Gap mmol/L BUN (9-20) mg/dL Creatinine (0.66-1.25) mg/dL Est GFR (CKD-EPI)AfAm (>60 ml/min/1.73 sqM) Est GFR (CKD-EPI)NonAf (>60 ml/min/1.73 sqM) Glucose (74-99) mg/dL Plasma Lactic Acid Nate 1.0 (0.7-2.0) mmol/L Calcium (8.4-10.2) mg/dL Magnesium (1.6-2.3) mg/dL Total Bilirubin (0.2-1.3) mg/dL AST (17-59) U/L ALT (4-49) U/L Alkaline Phosphatase (38-126) U/L Troponin I 0.081 H* (0.000-0.034) ng/mL NT-Pro-B Natriuret Pep pg/mL Total Protein (6.3-8.2) g/dL Albumin (3.5-5.0) g/dL Critical Care Time Critical Care Time: Yes Disposition Clinical Impression: NSTEMI (non-ST elevated myocardial infarction), Arterial insufficiency Disposition: ADMITTED IP TO THIS [facility] Condition: Serious Is patient prescribed a controlled substance at d/c from ED?: No Referrals: Amelia Jc MD [Primary Care Provider] - 1-2 days Time of Disposition: 10:47
--- NOTE | 2024-01-29 08:34 | XR ---
EXAMINATION TYPE: XR chest 2V DATE OF EXAM: 01/29/2024 COMPARISON: 01/19/2024 INDICATION: Difficulty breathing, short of breath TECHNIQUE: Frontal and lateral views of the chest are obtained. FINDINGS: The heart size is normal. The pulmonary vasculature is normal. The lungs are clear. IMPRESSION: 1. No acute pulmonary process. [facility], , 01/29/2024 8:31 AM
[2024-01-29 09:06] LABS: Basophils # (A) 0.1 k/uL (0-0.2); Basophils % (A) 1 %; Eosinophils # (A) 0.3 k/uL (0-0.7); Eosinophils % (A) 3 %; HCT 40.8 % (39.0-53.0); HGB 13.8 gm/dL (13.0-17.5); Lymphocytes % (A) 26 %; MCH 30.5 pg (25.0-35.0); MCHC 33.8 g/dL (31.0-37.0); MCV 90.4 fL (80.0-100.0); Mean Platelet Volume 9.8; Monocytes # (A) 0.4 k/uL (0-1.0); Monocytes % (A) 5 %; Neutrophils # (A) 5.1 k/uL (1.3-7.7); Neutrophils % (A) 64 %; Platelet Count 258 k/uL (150-450); RBC 4.52 m/uL (4.30-5.90); RDW 13.4 % (11.5-15.5)
[2024-01-29 09:25] LABS: ALT 20 U/L (4-49); AST 31 U/L (17-59); African American GFR (CKD) >90 (>60 ml/min/1.73 sqM); Albumin 4.5 g/dL (3.5-5.0); Alkaline Phosphatase 85 U/L (38-126); Anion Gap 4 mmol/L; Blood Urea Nitrogen 31 mg/dL (9-20); Calcium 9.9 mg/dL (8.4-10.2); Carbon Dioxide 24 mmol/L (22-30); Chloride 109 mmol/L (98-107); Glucose 91 mg/dL (74-99); Magnesium 1.8 mg/dL (1.6-2.3); Non-African American GFR(CKD) 80 (>60 ml/min/1.73 sqM); Potassium 5.1 mmol/L (3.5-5.1); Sodium 137 mmol/L (137-145); Total Bilirubin 0.3 mg/dL (0.2-1.3)
[2024-01-29 09:32] LABS: INR 0.9 (<1.2); Partial Thromboplastin Time 33.5 sec (22.0-30.0); Prothrombin Time 10.3 sec (10.0-12.5)
[2024-01-29 09:33] LABS: NT-Pro-B-Type Natriuretic Pept 792 pg/mL
--- NOTE | 2024-01-29 10:11 | US ---
EXAMINATION TYPE: US venous doppler duplex LE RT DATE OF EXAM: 01/29/2024 9:25 AM COMPARISON: NONE CLINICAL INDICATION: Male, 68 years old with history of pain; Right foot pain SIDE PERFORMED: Right TECHNIQUE: The lower extremity deep venous system is examined utilizing real time linear array sonog maris with graded compression, doppler sonography and color-flow sonography. VESSELS IMAGED: Common Femoral Vein Deep Femoral Vein Greater Saphenous Vein * Femoral Vein Popliteal Vein Small Saphenous Vein * Proximal Calf Veins (* superficial vessels) Right Leg: Appears negative for DVT IMPRESSION: 1. Right lower extremity ultrasound negative for deep venous thrombosis. [facility], , 01/29/2024 10:09 AM
[2024-01-29] MEDS ORDERED: NITROGLYCERIN SL TABS 0.4 MG TAB SUBLINGUAL PRN (10:48)
[2024-01-29] MEDS: HEPARIN SODIUM 1,000 UN/ML (10ML VL) IV ONE (11:16)
[2024-01-29] MEDS: HEPARIN SOD,PORK IN 0.45% NACL 25,000 UNIT in 0.45% NACL 1 250ML.BAG IV SCH (11:16)
[2024-01-29] MEDS ORDERED: ALBUTEROL NEBULIZED 2.5 MG/3 ML INHALATION PRN (11:52)
[2024-01-29] MEDS: MORPHINE SULFATE 2 MG/ML SYRINGE IVP PRN (11:57)
--- NOTE | 2024-01-29 12:41 | P.HPIM ---
History of Present Illness H&P Date: 01/29/24 Chief Complaint: Dyspnea on exertion/right ischemic limb HISTORY OF PRESENT ILLNESS: 68-year-old male previous medical history significant for hypertension and hypertensive cardiovascular disease, hyperlipidemia, chronic tobacco use and dependence with COPD, peripheral vascular occlusive disease, presented to the emergency department about a week ago with increased dizziness and lightheadedness with dyspnea exertion, his troponin was slightly elevated at that time it was recommended for the patient to be staying in the hospital for evaluation by cardiology however he left AGAINST MEDICAL ADVICE, he came back today to the emergency department with a similar complaint with increased dyspnea on exertion dizziness diaphoresis and lightheadedness, at the same time he was complaining of increased pain in the right lower extremity that is not allowing him to sleep at night, with significant aches in the right calf muscles, patient did come to the emergency department at [facility] he was evaluated by Dr. Agrawal, I went and seen the patient in the emergency department he did complain of significant claudication he did complain of increased pain in the right lower extremity which appears to be pale cold and could not feel pulse in the posterior tibialis very thready in the dorsalis pedis, he was started on heparin drip after his troponin came back slightly elevated, he will be seen in consultation by cardiology as well as by vascular surgery he may need to go for CT angiography for the right lower extremity or angiogram for evaluation of possible superficial femoral artery occlusion. Twelve-lead EKG showed sinus bradycardia with evidence of ST-T wave changes suggestive of ischemia. Chest x-ray was negative. REVIEW OF SYSTEMS: Constitutional: No documented fever, no chills, no night sweats. No weight change. No weakness, fatigue or lethargy. No daytime sleepiness. EENT: No headache. No blurred vision or double vision, no loss of vision. No loss of Hearing, no ringing in the ears, no dizziness. No nasal drainage or congestion. No epistaxis. No sore throat. Lungs: Positive for shortness of breath, no cough, no sputum production. No wheezing. Reports dyspnea with activity. Cardiovascular: No chest pain, no lower extremity edema. No palpitations. No paroxysmal nocturnal dyspnea. No orthopnea. No lightheadedness or dizziness. No syncopal episodes. Abdominal: Reports abdominal pain. No nausea, vomiting. No diarrhea. No constipation. No bloody or tarry stools reports loss of appetite. Genitourinary: No dysuria, increased frequency, urgency. No urinary retention. Musculoskeletal: No myalgias. No muscle weakness, no gait dysfunction, no frequent falls. Positive for back pain. No neck pain. Positive for right leg pain. Integumentary: No wounds, no lesions. No rash or pruritus. No unusual bruisin g. positive for change in hair of the right lower extremity due to PAD.. Neurologic: No aphasia. No facial droop. No change in mentation. No head injury. Occasional headache. No paralysis. Positive for paresthesia of the right lower extremity. Psychiatric: No depression. No anxiety. No mood swings. Endocrine: No abnormal blood sugars. No weight change. PAST MEDICAL HISTORY: Hypertension and hypertensive cardiovascular disease. Mixed hyperlipidemia. Chronic tobacco use and dependence. Peripheral vascular occlusive disease. Bipolar disorder. COPD. Osteoarthritis GERD with esophagitis. TIA/CVA. Elevated PSA and possible prostate cancer Spondylosis of the lumbar spine. PAST SURGICAL HISTORY: Left arthroscopic knee surgery. Right hand surgery. SOCIAL HISTORY: Patient smokes about a pack every day since he was 12-year-old, he drinks occasionally, he denies any drug use or abuse. FAMILY HISTORY: Father at the age of 56 from heart disease and also had history of hyperte nsion mother at age of 67 from uterine cancer and had history of hypertension patient has 1 brother who is 68-year-old with history of colon cancer, patient had 1 sister who at the age 53 from brain cancer, patient has 1 son 39-year-old alive and well, 1 daughter 43-year-old alive and well. PHYSICAL EXAMINATION: General: 68-year-old male sitting up in bed in no distress. HEENT: Head is atraumatic, normocephalic, pupils were equal round reactive to light and recommendation, extraocular muscle movement were intact, sclera nonicteric, conjunctivae were pale, mucous membranes of the mouth are somewhat dry. Neck: Supple, no JVP, normal carotid upstroke bilaterally, no lymphadenopathy. Chest: Decreased breath sounds at the bases, few rhonchi, no expiratory wheezes, no chest wall tenderness, no intercostal retractions. Heart: First heart sound is normal, second heart sounds normal there is systolic ejection murmur 2/6 located left sternal border. Abdomen: Soft, nontender, nondistended, positive bowel sounds, there is no hepatosplenomegaly left inguinal hernia Extremities: There is no edema, no calf tenderness, dorsalis pedis could not be palpated in the right lower extremity posterior tibialis could not be palpated in the right lower extremity dorsalis pedis is +1 on the left lower extremity posterior tibialis is +2 in the left lower extremity Neurologic examination: Patient is awake alert and oriented x3 , cranial nerves II-12 appear grossly intact, muscle power were 5 out of 5 in upper extremities and 5 out of 5 in bilateral lower extremities, deep tendon reflexes normal bilaterally. ASSESSMENT AND PLAN: 1. Right ischemic limb due to severe PAD. Start the patient on heparin drip, continue aspirin 325 mg orally once every day, continue atorvastatin 40 mg once every day, consult vascular surgery for further evaluation recommendation patient may need to go for an angiogram for further evaluation and recommendation. Restart the patient back on hydrocodone for pain control, uses morphine 2 mg IV push every 4 hours as needed for pain control for severe pain. 2. Elevated troponin likely due to possible underlying CAD rule out acute coronary syndrome. Continue heparin drip, continue aspirin 325 mg once every day, continue atorvastatin 40 mg orally once every day, continue nitroglycerin paste 1 inch every 8 hours, trend troponin, echocardiogram, cardiology consultation for left heart catheterization. 3. Hypertension and hypertensive cardiovascular disease. Continue patient on lisinopril 20 mg once every day, monitor the patient blood pressure very closely. 4. Mixed hyperlipidemia. Continue atorvastatin 40 mg once every day, monitor lipid panel, keep LDL 55-70. 5. Severe PAD. Continue treatment as in paragraph#1 6. GERD with esophagitis. Continue pantoprazole 40 mg once every day. 7. Chronic tobacco dependence with COPD. Smoking cessation and counseling and increased risk of CVA, CAD and malignancy. Continue albuterol HFA 2 puffs inhalation every 4 hours as needed continue Symbicort 80/45 mcg 2 puffs elation twice every day,start Duoneb 3 m nebilization q6 h as needed 8. CVA/TIA. Continue patient on aspirin 325 mg once every day as well as atorvastatin 40 mg orally daily for secondary prevention. 9. Bipolar disorder. patient is not taking any medication at this point in time. 10. Anxiety disorder. Patient is not taking any medication at this point in time. 11. Elevated PSA his last PSA was 52 he was supposed to go for MRI of the prostate with and without katelyn I do not have the report of that maybe he did not do it patient is very noncompliant 12. DVT prophylaxis. Currently on heparin drip. 13. GI prophylaxis continue pantoprazole 40 mg orally once every day. 14. Admit to inpatient. Estimated length of stay 2 midnights. 15. Patient is full code. Past Medical History Past Medical History: COPD, CVA/TIA, GERD/Reflux, Hyperlipidemia, Hypertension Additional Past Medical History / Comment(s): speech impediment History of Any Multi-Drug Resistant Organisms: MRSA Date of last positivie culture/infection: 03/07/18 MDRO Source:: LEG Past Surgical History: Orthopedic Surgery Additional Past Surgical History / Comment(s): arthroscopy to left knee, right hand Past Anesthesia/Blood Transfusion Reactions: No Reported Reaction Past Psychological History: Bipolar Smoking Status: Current every day smoker Past Alcohol Use History: None Reported Past Drug Use History: None Reported Medications and Allergies Home Medications Medication Instructions Recorded Confirmed Type lisinopriL [Prinivil] 10 mg PO DAILY 07/15/17 01/29/24 History Albuterol Inhaler [Ventolin Hfa 1 puff INHALATION RT-Q4H PRN 03/07/18 01/29/24 History Inhaler] Ibuprofen [Motrin] 800 mg PO BID PRN 01/01/19 01/29/24 History Atorvastatin [Lipitor] 20 mg PO DAILY 01/29/24 01/29/24 History Budesonide/Formoterol Fumarate 2 puff INHALATION RT-BID 01/29/24 01/29/24 History [Symbicort 80-4.5 Mcg Inhaler] Omeprazole 20 mg PO DAILY 01/29/24 01/29/24 History traMADol HCL 50 mg PO DAILY PRN 01/29/24 01/29/24 History Allergies Allergy/AdvReac Type Severity Reaction Status Date / Time No Known Allergies Allergy Verified 01/29/24 11:47 Physical Exam Vitals: Vital Signs Temp Pulse Resp BP Pulse Ox 01/29/24 10:14 52 L 16 180/85 98 01/29/24 08:12 63 20 186/78 98 01/29/24 07:54 97.5 F L 57 L 18 172/78 99 Intake and Output 01/28/24 01/29/24 01/29/24 22:59 06:59 14:59 Other: Weight 72.575 kg Results CBC & Chem 7: 01/29/24 08:22 01/29/24 08:22 Labs: Abnormal Lab Results - Last 24 Hours (Table) 01/29/24 01/29/24 01/29/24 Range/Units 08:22 08:22 08:22 APTT 33.5 H (22.0-30.0) sec Chloride 109 H (98-107) mmol/L BUN 31 H (9-20) mg/dL Troponin I 0.081 H* (0.000-0.034) ng/mL
[2024-01-29] MEDS: NITROGLYCERIN OINT 1 INCH/GM PACKET TOPICAL SCH (13:04)
[2024-01-29] MEDS: ATORVASTATIN 40 MG TAB PO SCH (13:04)
[2024-01-29] MEDS: IPRATROPIUM-ALBUTEROL 3 ML NEB INHALATION PRN (15:26)
[2024-01-29] MEDS: SYMBICORT 80-4.5 MCG INHALER INHALATION SCH (20:00)
[2024-01-30 06:40] LABS: Platelet Count 263 k/uL (150-450)
[2024-01-30] MEDS ORDERED: NITROGLYCERIN SL TABS 0.4 MG TAB SUBLINGUAL PRN ×2 (08:37→11:59)
[2024-01-30] MEDS ORDERED: ALPRAZolam 0.5 MG TAB PO PRN (08:37)
[2024-01-30] MEDS ORDERED: ALPRAZolam 0.25 MG TAB PO PRN (08:37)
[2024-01-30] MEDS: ASPIRIN 81 MG PO SCH (08:46)
[2024-01-30] MEDS: lisinopriL 20 MG TAB PO SCH ×2 (08:47→19:51)
[2024-01-30] MEDS: PANTOPRAZOLE 40 MG TABLET PO SCH (08:48)
[2024-01-30] MEDS: SODIUM CHLORIDE 0.9% 1,000 ML IV SCH (09:00)
[2024-01-30] MEDS: ATORVASTATIN 80 MG TAB PO STA (09:00)
[2024-01-30] MEDS: ASPIRIN 325 MG TAB PO STA (09:00)
[2024-01-30] MEDS ORDERED: lisinopriL 10 MG TAB PO SCH (09:00)
[2024-01-30] MEDS ORDERED: ASPIRIN 325 MG TAB PO SCH (09:00)
[2024-01-30 09:01] LABS: Chol/HDL Ratio 3.47 Ratio; LDL Cholesterol,Calculated 89.7 mg/dL (0.0-131.0)
--- NOTE | 2024-01-30 09:47 | US ---
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 A right CHRISTIANO could not be obtained due to the technologist unable to get a dorsalis pedis or all around patternmaker ior tibial artery signal. This could be related to vascular occlusion or thrombosis correlate clinica llclint. 2. Normal left CHRISTIANO [facility], , 01/30/2024 9:44 AM
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
[2024-01-30] MEDS: IV FLUID CONTINUATION 1,000 ML IV ONE (10:50)
[2024-01-30] MEDS: HEPARIN SODIUM,PORCINE 10,000 UNIT in SODIUM CHLORIDE 0.9% 1,000 ML IRRIGATION PRN (10:50)
[2024-01-30] MEDS: HEPARIN SODIUM,PORCINE (1 ML) 2,500 UNIT in SODIUM CHLORIDE 0.9% 250 ML IRRIGATION PRN (10:51)
[2024-01-30] MEDS: fentaNYL (PF) 50 MCG/ML 2 ML AMP IVP ONE (10:58)
[2024-01-30] MEDS: LIDOCAINE 1% INJ 10MG/ML (20 ML MDV) SQ ONE (11:02)
[2024-01-30] MEDS: MIDAZOLAM 2 MG/2 ML VIAL IVP ONE (11:03)
[2024-01-30] MEDS: VERAPAMIL SYRINGE (5 MG/10 ML) INTRAARTER ONE (11:06)
[2024-01-30] MEDS: HEPARIN SODIUM 1,000 UN/ML (10ML VL) IV ONE (11:10)
[2024-01-30] MEDS: NITROGLYCERIN 1000MCG/10ML SYRINGE INTRACORON ONE (11:25)
[2024-01-30] MEDS: CLOPIDOGREL 75 MG TAB PO ONE (11:32)
[2024-01-30] MEDS: IOPAMIDOL-370 100ML BTL INJ ONE ×2 (11:44→11:48)
[2024-01-30] MEDS ORDERED: ATROPINE SULFATE 0.1 MG/ML 10ML SYRINGE IV PRN (11:59)
[2024-01-30] MEDS ORDERED: RX INFO: IV CONTRAST WAS GIVEN 1 EACH MISC MISCELLANE PRN (11:59)
[2024-01-30] MEDS ORDERED: MAG HYDROX/AL HYDROX/SIMETH 30 ML CUP PO PRN (11:59)
[2024-01-30] MEDS ORDERED: ZOLPIDEM 5 MG TAB PO PRN (11:59)
--- NOTE | 2024-01-30 12:11 | P.CARDCATH ---
Date of Procedure: 01/30/24 Description of Procedure: Cardiac Catheterization: The patient is a 68-year-old male with known history of chronic tobacco use, hypertension who presented with progressive dyspnea in addition to right lower extremity discomfort consistent with PAD. He had mild troponin elevation consistent with non-STEMI with no significant EKG changes. Recommendations were made regarding cardiac catheterization, the risks and the complications were discussed with the patient who is in full understanding and agreement. Procedure Description: Patient was brought to cath lab manager in fasting semi-sedated state after receiving Fentanyl and Benadryl achieiving moderate conscious sedated state. Using Xylocaine Anesthesia and modified Seldinger technique, a 6-Mexican sheath was introduced in the right radial artery . Subsequently, selective coronary angiography was performed using a 5-Mexican 3.5 bend Dagmar catheter. Multiple views of the coronary artery including hemiaxial views were obtained. The 6 Mexican pigtail catheter was used to cross the aortic valve and LVEDP was calculated. PCI: After removing the catheter a 6 Mexican CLS 3.5 guiding catheter was introduced into the system and after cannulating the left main pressure wire X was introduced in the left circumflex and subsequently RFR was measured at 0.91. After removing the catheter a 6 Mexican FL 4 guiding catheter was introduced in the system and after cannulating the RCA ostium a 0.014 BMW J-wire was positioned distally subsequently a 2.5 x 18 mm Xience danny point stent was advanced and deployed at 16 irasema. After appropriate weight the wire was removed, images were obtained and revealed stable successful stenting. Following that, catheter and sheath were removed. Hemostasis was obtained with deployment of vascular band . There was no immediate complication. Patient was returned to room in stable condition. Of note, the patient received a total of 8000 units of intravenous heparin as well as intra-arterial verapamil. He received an oral loading dose of clopidogrel, his ACT was monitored. He had no significant ST segment changes but he had an episode of atrial fibrillation. He had some throat discomfort that resolved at the end of the procedure. Findings: Left main: This is a short size vessel, bifurcating into LAD and left cir cumflex, left main has no significant obstructive disease. LAD: This is a large size vessel, reaching to the apex with a wraparound apex segment. Giving rise to a diagonal branch that has a 50 to 60% plaque in the midsegment. The LAD has mild intimal disease without high-grade stenosis. Left circumflex: This is a large dominant vessel bifurcating into PDA and PLV giving rise to a large obtuse marginal branch in the midsegment. At the takeoff of the obtuse marginal branch there is an eccentric 50 to 60% plaque RCA: This is a nondominant vessel giving rise to a large acute marginal branch. The RCA prior to the takeoff of the acute marginal branch has a 70% stenosis. Left Ventriculogram: Nondominant Hemodynamics: There was no gradient across aortic valve, LVEDP was 20-24 mmHg Conclusion: 1. Moderate disease in the mid left circumflex with an RFR of 0.91 consistent with nonhemodynamically significant lesion 2. Moderate disease in the first diagonal branch 3. Significant disease in the mid RCA 4. Successful stenting of the mid RCA with reduction of stenosis from 70% to 0%. ALANA-3 flow was noted Recommendations: The patient will continue on aspirin and clopidogrel for 1 year without any interruption. Aggressive coronary risks modifications and attempt to maintain LDL below 70 mg/dL will be initiated. If he continues to be in atrial fibrillation anticoagulation will be initiated. The findings and the recommendations were discussed with the patient and the family and they were in full understanding and agreement. Duration of sedation is 47 minutes.
[2024-01-30] MEDS: NICOTINE 21MG/24HR PATCH TRANSDERM SCH (12:24)
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
[2024-01-30] MEDS: SODIUM CHLORIDE 0.9% 1,000 ML in EMPTY BAG 1 BAG IV SCH (12:28)
[2024-01-30] MEDS: METOPROLOL TARTRATE 25 MG TAB PO SCH (12:28)
--- NOTE | 2024-01-30 12:46 | CA ---
Transthoracic Echo Report Name: Gonzalez Nagy Age: 68 Gender: M : 1955 Exam Date: 01/30/2024 08:29 Exam Location: [facility] Echo Ht (in): 69 Wt (lb): 160 Ordering Physician: Jj Agrawal DO Attending/Referring Phys: Vamp Marker Mica Hollis RDCS Procedure CPT: Indications: nstemi Cardiac Hx: Technical Quality: Fair Contrast 1: Total Dose (mL): Contrast 2: Total Dose (mL): MEASUREMENTS (Male / Female) Normal Values 2D ECHO LV Diastolic Diameter PLAX 4.0 cm 4.2 - 5.9 / 3.9 - 5.3 cm LV Systolic Diameter PLAX 2.7 cm IVS Diastolic Thickness 1.5 cm 0.6 - 1.0 / 0.6 - 0.9 cm LVPW Diastolic Thickness 1.2 cm 0.6 - 1.0 / 0.6 - 0.9 cm LV Relative Wall Thickness 0.7 RV Internal Dim ED PLAX 3.5 cm LA Systolic Diameter LX 3.7 cm 3.0 - 4.0 / 2.7 - 3.8 cm LV Diastolic Volume MOD 4C 68.1 cm??? LV Systolic Volume MOD 4C 25.1 cm??? LV Ejection Fraction MOD 4C 63.1 % LV Diastolic Length 4C 7.6 cm LV Systolic Length 4C 5.9 cm LV Diastolic Volume MOD 2C 57.3 cm??? LV Systolic Volume MOD 2C 29.9 cm??? LV Ejection Fraction MOD 2C 47.8 % LV Diastolic Length 2C 8.0 cm LV Systolic Length 2C 6.9 cm M-MODE Aortic Root Diameter MM 3.6 cm LA Systolic Diameter MM 2.0 cm LA Ao Ratio MM 0.6 DOPPLER AV Peak Velocity 139.3 cm/s AV Peak Gradient 7.8 mmHg AI Peak Velocity 378.4 cm/s AI Peak Gradient 57.3 mmHg AI Pressure Half Time 554.2 ms Mitral E Point Velocity 93.4 cm/s Mitral A Point Velocity 105.3 cm/s Mitral E to A Ratio 0.9 MV Deceleration Time 308.1 ms MV E' Velocity 4.2 cm/s Mitral E to MV E' Ratio 22.5 TR Peak Velocity 219.6 cm/s TR Peak Gradient 19.3 mmHg Right Ventricular Systolic Press 35.0 mmHg FINDINGS Left Ventricle Left ventricular ejection fraction is estimated at 55-60 %. Left ventricular cavity size normal. Moderately increased septal wall thickness. No obvious regional wall motion abnormalities. Right Ventricle Mild right ventricular dilatation. Mild pulmonary hypertension. Right Atrium Normal right atrial size. No right atrial thrombus or mass seen. Left Atrium Normal left atrial size. No left atrial thrombus or mass present. Mitral Valve Mitral valve thickened. Mild to moderate mitral regurgitation. No evidence for mitral valve prolapse. No mitral stenosis. Aortic Valve Trileaflet aortic valve. Aortic valve sclerosis. Mild aortic regurgitation. Tricuspid Valve Structurally normal tricuspid valve. Mild tricuspid regurgitation. Pulmonic Valve Structurally normal pulmonic valve. No pulmonic regurgitation. Pericardium No pericardial or pleural effusion. Aorta Normal size aortic root and proximal ascending aorta. CONCLUSIONS Normal biventricular systolic function Mild pulmonary hypertension Mild aortic regurgitation Mild to moderate mitral regurgitation Previewed by: Dr. Arsalan Hobson MD (Electronically Signed) Final Date: 30 January 2024 12:45
[2024-01-30] MEDS: lisinopriL 20 MG TAB PO STA (12:52)
[2024-01-30] MEDS: HYDROcodone/APAP 10-325MG 1 EACH TAB PO PRN (12:53)
--- NOTE | 2024-01-30 18:32 | P.PN ---
Subjective Progress Note Date: 01/30/24 HISTORY OF PRESENT ILLNESS: 68-year-old male previous medical history significant for hypertension and hypertensive cardiovascular disease, hyperlipidemia, chronic tobacco use and dependence with COPD, peripheral vascular occlusive disease, presented to the emergency department about a week ago with increased dizziness and lightheadedness with dyspnea exertion, his troponin was slightly elevated at that time it was recommended for the patient to be staying in the hospital for evaluation by cardiology however he left AGAINST MEDICAL ADVICE, he came back today to the emergency department with a similar complaint with increased dyspnea on exertion dizziness diaphoresis and lightheadedness, at the same time he was complaining of increased pain in the right lower extremity that is not allowing him to sleep at night, with significant aches in the right calf muscles, patient did come to the emergency department at [facility] he was evaluated by Dr. Agrawal, I went and seen the patient in the emergency department he did complain of significant claudication he did complain of incre ased pain in the right lower extremity which appears to be pale cold and could not feel pulse in the posterior tibialis very thready in the dorsalis pedis, he was started on heparin drip after his troponin came back slightly elevated, he will be seen in consultation by cardiology as well as by vascular surgery he may need to go for CT angiography for the right lower extremity or angiogram for evaluation of possible superficial femoral artery occlusion. Twelve-lead EKG showed sinus bradycardia with evidence of ST-T wave changes suggestive of ischemia. Chest x-ray was negative. 01/29: Patient underwent left heart catheterization today by cardiology that showed a significant stenosis of the RCA that is nondominant system and underwent successful PCI of that artery, he also did have nonsignificant stenosis of the LCx based on the FFR was 0.91 therefore no angioplasty was contemplated, patient had a radial approach from the right arm, he tolerated the procedure very well, he had a Jules catheter in place due to urinary retention, patient apparently has not followed with urology Dr. Vanessa that was supposed to be done on January 27, 2024 since his PSA is quite elevated, he will need to follow-up as an outpatient, patient also was seen in consultation by vascular surgery who recommended for the patient to have a CT angiography of the right lower extremity and this will be done in the next 24 hours because the patient did receive quite a bit of IV dye during the procedure, we will reevaluate the patient kidney function test tomorrow morning, I will continue to follow patient continues to be somewhat hypertensive, we will increase his lisinopril to 20 mg orally twice every day, continue metoprolol that was ordered by cardiology, follow-up with the patient very closely. REVIEW OF SYSTEMS: Constitutional: No documented fever, no chills, no night sweats. No weight change. No weakness, fatigue or lethargy. No daytime sleepiness. EENT: No headache. No blurred vision or double vision, no loss of vision. No loss of Hearing, no ringing in the ears, no dizziness. No nasal drainage or congestion. No epistaxis. No sore throat. Lungs: Positive for shortness of breath, no cough, no sputum production. No wheezing. Reports dyspnea with activity. Cardiovascular: No chest pain, no lower extremity edema. No palpitations. No paroxysmal nocturnal dyspnea. No orthopnea. No lightheadedness or dizziness. No syncopal episodes. Abdominal: Reports abdominal pain. No nausea, vomiting. No diarrhea. No constipation. No bloody or tarry stools reports loss of appetite. Genitourinary: No dysuria, increased frequency, urgency. No urinary retention. Musculoskeletal: No myalgias. No muscle weakness, no gait dysfunction, no frequent falls. Positive for back pain. No neck pain. Positive for right leg pain. Integumentary: No wounds, no lesions. No rash or pruritus. No unusual bruising. positive for change in hair of the right lower extremity due to PAD.. Neurologic: No aphasia. No facial droop. No change in mentation. No head injury. Occasional headache. No paralysis. Positive for paresthesia of the right lower extremity. Psychiatric: No depression. No anxiety. No mood swings. Endocrine: No abnormal blood sugars. No weight change. PHYSICAL EXAMINATION: General: 68-year-old male sitting up in bed in no distress. HEENT: Head is atraumatic, normocephalic, pupils were equal round reactive to light and recommendation, extraocular muscle movement were intact, sclera nonicteric, conjunctivae were pale, mucous membranes of the mouth are somewhat dry. Neck: Supple, no JVP, normal carotid upstroke bilaterally, no lymphadenopathy. Chest: Decreased breath sounds at the bases, few rhonchi, no expiratory wheezes, no chest wall tenderness, no intercostal retractions. Heart: First heart sound is normal, second heart sounds normal there is systolic ejection murmur 2/6 located left sternal border. Abdomen: Soft, nontender, nondistended, positive bowel sounds, there is no hepatosplenomegaly left inguinal hernia Extremities: There is no edema, no calf tenderness, dorsalis pedis could not be palpated in the right lower extremity posterior tibialis could not be palpated in the right lower extremity dorsalis pedis is +1 on the left lower extremity posterior tibialis is +2 in the left lower extremity Neurologic examination: Patient is awake alert and oriented x3 , cranial nerves II-12 appear grossly intact, muscle power were 5 out of 5 in upper extremities and 5 out of 5 in bilateral lower extremities, deep tendon reflexes normal bilaterally. ASSESSMENT AND PLAN: 1. Right ischemic limb due to severe PAD. Patient was seen in consultation by vascular surgery he was taken off heparin drip, he will be maintained on aspirin 81 mg once every day, Plavix 75 mg once every day, atorvastatin 40 mg once every day, he is scheduled to go for CT angiography of the right lower extremity for further evaluation and recommendations. 2. Coronary artery disease status post left heart catheterization that showed evidence of moderate disease of the left circumflex artery with FFR of 0.91 without hemodynamically significant stenosis, moderate disease of the diagonal branch and severe disease of the RCA nondominant vessel status post PCI of the RCA continue patient on aspirin 81 mg once every day, Plavix 75 mg once every day, atorvastatin 40 mg once every day, metoprolol 25 mg orally twice every day monitor the patient symptoms very closely. 3. Hypertension and hypertensive cardiovascular disease. Continue patient on lisinopril 20 mg orally twice every day metoprolol 25 mg orally twice every day, monitor the patient blood pressure very closely. 4. Mixed hyperlipidemia. Continue atorvastatin 40 mg once every day, monitor lipid panel, keep LDL 55-70. 5. Severe PAD. Continue treatment as in paragraph#1 6. GERD with esophagitis. Continue pantoprazole 40 mg once every day. 7. Chronic tobacco dependence with COPD. Smoking cessation and counseling and increased risk of CVA, CAD and malignancy. Continue albuterol HFA 2 puffs inhalation every 4 hours as needed continue Symbicort 80/45 mcg 2 puffs elation twice every day,start Duoneb 3 m nebilization q6 h as needed 8. CVA/TIA. Continue patient on aspirin 325 mg once every day as well as atorvastatin 40 mg orally daily for secondary prevention. 9. Bipolar disorder. patient is not taking any medication at this point in time. 10. Anxiety disorder. Patient is not taking any medication at this point in time. 11. Elevated PSA his last PSA was 52 he was supposed to go for MRI of the prostate with and without katelyn I do not have the report of that maybe he did not do it patient is very noncompliant 12. DVT prophylaxis. Start the patient on Lovenox 40 mg subcutaneous every 24 hours. 13. GI prophylaxis continue pantoprazole 40 mg orally once every day. 14. Prognosis is guarded. Objective - Vital Signs Vital signs: Vital Signs Temp 97.7 F 01/30/24 15:44 Pulse 56 L 01/30/24 15:44 Resp 20 01/30/24 15:44 BP 141/62 01/30/24 15:44 Pulse Ox 97 01/30/24 15:44 FiO2 Intake & Output 01/29/24 01/30/24 01/30/24 18:59 06:59 18:59 Intake Total 726.5 Output Total 900 1200 Balance -900 -473.5 Weight 72.575 kg 72.575 kg Intake: IV 726.5 Sodium Chloride 0.9% 1, 75 000 ml @ 75 mls/hr IV . [id number] [facility] Rx#:[id number] Output: Urine 900 1200 Other: Voiding Method Indwelling Catheter - Labs CBC & Chem 7: 01/30/24 06:05 01/29/24 08:22 Labs: Abnormal Lab Results - Last 24 Hours (Table) 01/29/24 01/30/24 01/30/24 Range/Units 22:44 06:05 06:05 APTT 45.2 H 55.7 H (22.0-30.0) sec Triglycerides 153.00 H (0.00-149.00) mg/dL
[2024-01-30] MEDS: ATORVASTATIN 40 MG TAB PO SCH (19:51)
[2024-01-31 00:37] VITALS: RESP 18
--- NOTE | 2024-01-31 07:24 | US ---
EXAMINATION TYPE: US carotid duplex BILAT DATE OF EXAM: 01/30/2024 COMPARISON: NONE CLINICAL INDICATION: Male, 68 years old with history of PAD, left carotid bruit; Left bruit. TECHNIQUE: Carotid duplex ultrasound examination. Indirect Doppler criteria was utilized. FINDINGS: EXAM MEASUREMENTS: RIGHT: Peak Systolic Velocity (PSV) cm/sec ----- Right CCA: 124 ----- Right ICA: 182 ----- Right ECA: wnl ICA/CCA ratio: 1.5 RIGHT: End Diastole cm/sec ----- Right CCA: 17.5 ----- Right ICA: 21.5 ----- Right ECA: wnl LEFT: Peak Systolic Velocity (PSV) cm/sec ----- Left CCA: 144 ----- Left ICA: 173 ----- Left ECA: 245 ICA/CCA ratio: 1.2 LEFT: End Diastole cm/sec ----- Left CCA: 4.05 ----- Left ICA: 34.4 ----- Left ECA: 0 VERTEBRALS (direction of flow): Right Vertebral: Antegrade Left Vertebral: Antegrade Rhythm: Normal BLENDING COORDINATOR NOTES: Bilateral plaque visualized No significant stenosis seen IMPRESSION: Bilateral atherosclerotic plaque is evidence of significant stenosis. There is extensive plaque in th e region below. Recommend correlation with CTA of the neck. Criteria for Assigning % of Stenosis / Diameter reduction (Estimation based on the indirect measurements of the internal carotid artery velocities (ICA PSV). 1. Normal (no stenosis)=ICA PSV < 125 cm/s: ratio < 2.0: ICA EDV<40 cm/s. 2. Less than 50% stenosis=ICA PSV < 125 cm/s: ratio < 2.0: ICA EDV<40 cm/s. 3. 50 to 69% stenosis=ICA PSV of 125 to 230 cm/s: ration 2.0 ? 4.0: ICA EDV 40-100 cm/s. 4. Greater than 70% stenosis to near occlusion= ICA PSV > 230 cm/s: ratio > 4.0: ICA EDV > 100 cm/s. 5. Near occlusion= ICA PSV velocities may be low or undetectable: variable ratio and ICA EDV. 6. Total occlusion=unable to detect flow. [facility], , 01/31/2024 7:22 AM
[2024-01-31 08:12] LABS: Basophils % (A) 1 %; Eosinophils # (A) 0.2 k/uL (0-0.7); Eosinophils % (A) 3 %; HCT 36.4 % (39.0-53.0); HGB 12.2 gm/dL (13.0-17.5); Lymphocytes # (A) 2.1 k/uL (1.0-4.8); Lymphocytes % (A) 30 %; MCH 30.6 pg (25.0-35.0); MCHC 33.4 g/dL (31.0-37.0); MCV 91.6 fL (80.0-100.0); Mean Platelet Volume 8.6; Monocytes # (A) 0.4 k/uL (0-1.0); Monocytes % (A) 6 %; Neutrophils # (A) 4.1 k/uL (1.3-7.7); Neutrophils % (A) 59 %; Platelet Count 232 k/uL (150-450); RBC 3.97 m/uL (4.30-5.90); RDW 12.9 % (11.5-15.5); WBC 6.9 k/uL (3.8-10.6)
[2024-01-31] MEDS: CLOPIDOGREL 75 MG TAB PO SCH (08:25)
[2024-01-31] MEDS: ASPIRIN 81 MG PO SCH (08:26)
[2024-01-31 08:48] LABS: ALT 17 U/L (4-49); AST 26 U/L (17-59); African American GFR (CKD) >90 (>60 ml/min/1.73 sqM); Albumin 3.7 g/dL (3.5-5.0); Alkaline Phosphatase 60 U/L (38-126); Anion Gap 8 mmol/L; Blood Urea Nitrogen 20 mg/dL (9-20); Calcium 8.9 mg/dL (8.4-10.2); Carbon Dioxide 22 mmol/L (22-30); Chloride 107 mmol/L (98-107); Glucose 89 mg/dL (74-99); Non-African American GFR(CKD) 82 (>60 ml/min/1.73 sqM); Potassium 4.4 mmol/L (3.5-5.1); Sodium 137 mmol/L (137-145); Total Bilirubin 0.5 mg/dL (0.2-1.3); Total Protein 6.1 g/dL (6.3-8.2)
--- NOTE | 2024-01-31 10:59 | P.PN ---
Subjective Progress Note Date: 01/31/24 Principal diagnosis: Right lower extremity pain, PAD Patient is seen and examined today as a follow-up. Yesterday he underwent cardiac catheterization with stenting of the mid RCA. He is on aspirin and Plavix. He currently denies any shortness of breath or chest pain. He is scheduled to undergo CTA abdomen pelvis with runoff this afternoon. He had a carotid duplex done yesterday which reported arthrosclerotic plaque with significant stenosis however independently reviewing right ICA is more like 50 to 69% stenosis and left ICA is less than 50% stenosis. Patient denies any acute changes through the night. Right lower extremity pain about the same. Objective - Vital Signs Vital signs: Vital Signs Temp 97.9 F 01/31/24 07:48 Pulse 61 01/31/24 08:00 Resp 18 01/31/24 08:00 BP 157/63 01/31/24 07:48 Pulse Ox 99 01/31/24 07:48 FiO2 Intake & Output 01/30/24 01/31/24 01/31/24 18:59 06:59 18:59 Intake Total 726.5 Output Total 1200 1300 700 Balance -473.5 -1300 -700 Weight 70.4 kg Intake: IV 726.5 Sodium Chloride 0.9% 1, 75 000 ml @ 75 mls/hr IV . [id number] [facility] Rx#:[id number] Output: Urine 1200 1300 700 Other: Voiding Method Indwelling Catheter Indwelling Catheter Indwelling Catheter - Exam General appearance: The patient is alert, oriented, appears in no acute distress. HET: Head is normocephalic and atraumatic. Pupils are equal and reactive. Neck: Supple. Heart: Regular. Lungs: Equal expansion, normal respiratory effort. Abdomen: Soft, nontender, nondistended. Extremities: Normal skin color and turgor. Right femoral pulse palpable, no popliteal, PT or DP palpable pulse. Patient has good range of motion able to wiggle toes and gas pedal. Capillary refill adequate. Left lower extremity with palpable femoral and DP pulse. Neurological: No focal deficits. Strength and sensation are grossly intact. - Labs CBC & Chem 7: 01/31/24 07:38 01/31/24 07:38 Labs: Abnormal Lab Results - Last 24 Hours (Table) 01/31/24 01/31/24 Range/Units 07:38 07:38 RBC 3.97 L (4.30-5.90) m/uL Hgb 12.2 L (13.0-17.5) gm/dL Hct 36.4 L (39.0-53.0) % Total Protein 6.1 L (6.3-8.2) g/dL Assessment and Plan Assessment: 1. Chronic right lower extremity claudication and rest pain 2. Right SFA occlusion with reconstitution, right popliteal artery occlusion with reconstitution 3. Proximal right internal iliac artery occlusion with distal reconstitution 4. NSTEMI status postcardiac cath and mid RCA stent 5. Shortness of breath 6. COPD 7. History of CVA 8. Daily pack per day smoker 9. Hypertension 10. Hyperlipidemia Plan: 1. Continue recommendations from cardiology 2. Lower extremity arterial ultrasound ordered and reviewed 3. CTA abdomen pelvis with runoff ordered, scheduled for this afternoon 4. Carotid duplex ordered and reviewed 5. Recommend smoking cessation, nicotine patch ordered 6. Patient is cleared from vascular surgery for discharge, follow-up on CTA results as outpatient in next 1-2 weeks Thank you for this consultation, we will see sign off at this time. The impression and plan of care has been dictated as directed. Dr. Jules I performed a history and examination of this patient, discussed the same with the dictator. I agree with the dictator's note ,documented as a scribe. Any additional findings or plans will be noted.
--- NOTE | 2024-01-31 11:52 | CT ---
EXAMINATION TYPE: CT angio abd aorta w/Runoff CT DLP: 2044.4 mGycm, Automated exposure control for dose reduction was used. DATE OF EXAM: 01/31/2024 11:36 AM COMPARISON: Ultrasound lower extremity arterial 01/30/2024. CLINICAL INDICATION:Male, 68 years old with history of right lower extremity rest pain, claudication; Right lower extremity rest pain, claudication TECHNIQUE: Multiple thin slice sub-millimeter images were obtained before and after the uneventful ad ministration of 100 mL Isovue-370 intravenously. 3-D reconstructed images and maximum intensity proje ction images were obtained of the abdomen, pelvis, and lower extremities arteries. FINDINGS: CTA Abdomen and pelvis: Atherosclerotic plaquing is identified within the abdominal aorta. Fusiform e ctasia infrarenal abdominal aorta measuring 2.9 x 2.8 cm. The origins of the superior mesenteric lin ry, renal arteries, inferior mesenteric artery, and celiac axis are patent. Mild stenosis origin of t he celiac axis secondary to calcified and noncalcified plaque. Mild noncalcified plaque within the pr oximal SMA. Mild stenosis origin the right renal artery secondary to noncalcified plaque. Additional smaller caliber right renal artery identified emanating from the anterior aspect of the aorta. Mild s tenosis origin of the left renal artery secondary to calcified and noncalcified plaque. Initial secon denver left renal artery identified inferiorly. This demonstrates mild stenosis secondary to noncalcifi ed plaque. The iliac vessels are normal in morphology. Atherosclerotic plaquing with some mural thro mbus formation is identified in the common iliac arteries. Short segment mild stenosis involving the proximal left external iliac artery secondary to calcified and noncalcified plaque. Proximal right i nternal iliac artery occlusion with distal reconstitution. CTA Lower extremities: Right: The common femoral arteries patent. The proximal superficial femoral artery is patent. There i s moderate segment occlusion distally with distal reconstitution of approximately 10 cm. The proximal popliteal artery is patent with distal occlusion and reconstitution more distally. The occlusion is approximately 3 cm in length. Anterior and posterior tibial arteries as well as the peroneal artery a re patent. The anterior and posterior tibial artery crosses the ankle joint. Left: The common femoral and superficial femoral arteries are patent. Mild short segment stenosis inv olving the distal superficial femoral artery secondary to calcified and noncalcified plaque. The popl iteal artery is patent. Anterior and posterior tibial arteries as well as the peroneal artery are pat ent. The anterior artery becomes diminutive and is not visualized distally. The posterior tibial lin ry crosses the ankle joint. VISCERA: The liver, spleen, adrenal glands, kidneys, pancreas, and gallbladder are not optimally enha nced due the arterial phase utilized. LIVER: Unremarkable GALLBLADDER AND BILE DUCTS: Unremarkable. PANCREAS: Unremarkable. SPLEEN: Unremarkable. ADRENAL GLANDS: Unremarkable. KIDNEYS AND URETERS: No evidence of hydronephrosis or renal calculus. PELVIS BLADDER: Nondistended with Jules catheter in place. REPRODUCTIVE: Unremarkable. ABDOMEN & PELVIS STOMACH AND BOWEL: Scattered distal colonic diverticulosis without evidence for acute diverticulitis. The appendix is within normal limits. No evidence of bowel obstruction. PERITONEUM: No evidence of pneumoperitoneum or free fluid. VASCULATURE: No evidence of aortic aneurysm. MUSCULOSKELETAL: No acute osseous abnormalities. Multilevel degenerative disc disease with anterior h ypertrophic changes. LYMPH NODES: No gross evidence for lymphadenopathy. SOFT TISSUE/ABDOMINAL WALL: Unremarkable IMPRESSION 1. Right distal superficial femoral artery occlusion of approximately 10 cm in length with distal re constitution. 2. Right popliteal artery distal occlusion of approximately 3 cm in length with distal reconstitutio n. At least 2 vessels are seen crossing the right ankle joint. One vessel is identified crossing the left ankle joint. Diminutive appearance of the left anterior tibial artery with poor visualization tania rivas. 3. Infrarenal abdominal aortic ectasia measuring up to 2.9 cm. Proximal right internal iliac artery o cclusion with distal reconstitution. [facility], , 01/31/2024 11:50 AM
[2024-01-31 11:56] VITALS: BMI 22.8
[2024-01-31 12:04] VITALS: BP 172/71; PULSE 59; TEMP 97.5
--- NOTE | 2024-01-31 12:43 | P.PN ---
Subjective Progress Note Date: 01/31/24 Reason for Consult (text): NSTEMI History of present illness: This is a 68-year-old male patient with no previous cardiac history and does not follow with a lead inspector. He has a past medical history of hypertension with hypertensive cardiovascular disease, hyperlipidemia, chronic tobacco use and dependence and COPD, peripheral vascular occlusive disease. Patient initially presented to the hospital due to dizziness and lightheadedness with dyspnea on exertion and signed himself out AMA. He came back to the emergency center with the same complaints dyspnea on exertion dizziness lightheadedness and also complaining of right lower extremity pain. Apparently the pain in the leg has been going on for several months. He denies having any chest pain or chest pressure no chest tightness. He states he has had some episodes of sweating with the shortness of breath that have been worsening over the last 3 to 4 days. Patient gives history of having CVA in 2019 and required surgery in [place]. He denies ever having an myocardial infarction and no stent placement in his heart. He denies palpitations, orthopnea, PND. No lower extremity edema. He does have pain in the lower extremities right more than the left and he states he has no feeling in his feet. He is a smoker 1 pack/day. He complains of wheezing and a chronic cough that sometimes black mucus production. He does drink caffeine daily. No alcohol use. No recent rectal bleeding. Patient is seen today in the emergency center waiting for bed on the cardiac stepdown unit. Patient has been started on heparin drip. Blood pressure 155/57, heart rate 53, pulse ox 95% on room air. EKG: Sinus rhythm Chest x-ray: No acute process Right lower extremity duplex negative for DVT Laboratory studies: CBC within normal limits. D-dimer 0.57. Sodium 137, potassium 5.1, creatinine 0.98, BUN 31. Troponin 0.081, 0.079, 0.065. proBNP 792. Triglycerides 153, cholesterol 169, LDL 89, HDL 48. Home cardiac medications: Atorvastatin 20 mg daily, lisinopril 10 mg daily. 01/30 Yesterday, patient underwent cardiac catheterization with Dr. Garcia which revealed moderate disease in the mid left circumflex with RFR of 0.91 consistent with nonhemodynamically significant lesion. He was found to have moderate disease in the first diagonal branch, significant disease in the mid RCA. He subsequently underwent successful stenting of the mid RCA. Patient denies any chest pain today. No shortness of breath. He did have an episode of atrial fibrillation following the procedure and is now in a sinus rhythm. Patient has had workup with vascular surgeon including CTA with plan for outpatient follow- up. Blood pressure 172/71, heart rate in the 50s and 60s, pulse ox 95% on room air. Repeat blood work reveals hemoglobin 12.2. Creatinine 0.96. Lisinopril has been increased by attending. Physical examination: Gen: This is a 68-year-old male appears to be in no acute distress VS: reviewed HEENT: Head is atraumatic, normocephalic. Pupils equal, round. Sclerae is anicteric. NECK: Supple. No JVD. Bilateral carotid bruit LUNGS: Decreased breath sounds bilaterally. No intercostal retractions. HEART: Regular rate and rhythm. No murmur. ABDOMEN: Soft No tenderness. EXTREMITIES: No pedal edema. No calf tenderness. Decrease dorsalis pedis on the right NEUROLOGICAL: Patient is awake, alert and oriented x3. Assessment: NSTEMI Progressive dyspnea Hypertension with hypertensive cardiovascular disease Hyperlipidemia Peripheral vascular disease Tobacco use and dependence COPD Plan: Continue current cardiac medications: Aspirin 81 mg daily, atorvastatin 40 mg daily, Plavix 75 mg daily, lisinopril 20 mg twice daily, Nitrostat as needed Decrease metoprolol tartrate to 12.5 mg twice daily Continue patient on aspirin 81 mg daily Smoking cessation. Patient will be provided the [email or web address] quit line information at the time of discharge. Patient is cleared for discharge from cardiology May follow-up in the office with Dr. Garcia in 1 week. Nurse practitioner note has been reviewed, I agree with documented findings and plan of care. Patient was seen and examined. Objective - Vital Signs Vital signs: Vital Signs Temp 97.5 F L 01/31/24 12:00 Pulse 59 L 01/31/24 12:00 Resp 18 01/31/24 12:00 BP 172/71 01/31/24 12:00 Pulse Ox 95 01/31/24 12:00 FiO2 Intake & Output 01/30/24 01/31/24 01/31/24 18:59 06:59 18:59 Intake Total 726.5 Output Total 1200 1300 700 Balance -473.5 -1300 -700 Weight 70.4 kg 70.4 kg Intake: IV 726.5 Sodium Chloride 0.9% 1, 75 000 ml @ 75 mls/hr IV . [id number] [facility] Rx#:[id number] Output: Urine 1200 1300 700 Other: Voiding Method Indwelling Catheter Indwelling Catheter Indwelling Catheter - Labs CBC & Chem 7: 01/31/24 07:38 01/31/24 07:38 Labs: Abnormal Lab Results - Last 24 Hours (Table) 01/31/24 01/31/24 Range/Units 07:38 07:38 RBC 3.97 L (4.30-5.90) m/uL Hgb 12.2 L (13.0-17.5) gm/dL Hct 36.4 L (39.0-53.0) % Total Protein 6.1 L (6.3-8.2) g/dL
[2024-01-31] MEDS ORDERED: TAMSULOSIN 0.4 MG CAP.ER.24H PO STA (13:01)
[2024-01-31] MEDS ORDERED: METOPROLOL TARTRATE 12.5 MG TAB PO SCH (21:00)
--- NOTE | 2024-02-11 14:38 | P.DS ---
Providers Date of admission: 01/29/24 10:49 Expected date of discharge: 01/31/24 Attending physician: Amelia Jc Consults: 01/29/24 10:48 Consult Physician Urgent Consulting Provider: Zoie Jules Consult Reason/Comments: rle AI Do you want consulting provider notified?: Yes Consult Physician Urgent Consulting Provider: Chandra Elliott Consult Reason/Comments: nstemi Do you want consulting provider notified?: Yes 01/30/24 11:59 Consult Physician Routine Consulting Provider: [facility] Consult Reason/Comments: Post Interventional Patient Do you want consulting provider notified?: Already Contacted Primary care physician: Amelia Jc [facility] Course: HISTORY OF PRESENT ILLNESS: 68-year-old male previous medical history significant for hypertension and hypertensive cardiovascular disease, hyperlipidemia, chronic tobacco use and dependence with COPD, peripheral vascular occlusive disease, presented to the emergency department about a week ago with increased dizziness and lightheadedness with dyspnea exertion, his troponin was slightly elevated at that time it was recommended for the patient to be staying in the hospital for evaluation by cardiology however he left AGAINST MEDICAL ADVICE, he came back today to the emergency department with a similar complaint with increased dyspnea on exertion dizziness diaphoresis and lightheadedness, at the same time he was complaining of increased pain in the right lower extremity that is not allowing him to sleep at night, with significant aches in the right calf muscles, patient did come to the emergency department at [facility] he was evaluated by Dr. Agrawal, I went and seen the patient in the emergency department he did complain of significant claudication he did complain of increased pain in the right lower extremity which appears to be pale cold and could not feel pulse in the posterior tibialis very thready in the dorsalis pedis, he was started on heparin drip after his troponin came back slightly elevated, he will be seen in consultation by cardiology as well as by vascular surgery he may need to go for CT angiography for the right lower extremity or angiogram for evaluation of possible superficial femoral artery occlusion. Twelve-lead EKG showed sinus bradycardia with evidence of ST-T wave changes suggestive of ischemia. Chest x-ray was negative. 01/29: Patient underwent left heart catheterization today by cardiology that showed a significant stenosis of the RCA that is nondominant system and underwent successful PCI of that artery, he also did have nonsignificant stenosis of the LCx based on the FFR was 0.91 therefore no angioplasty was contemplated, patient had a radial approach from the right arm, he tolerated the procedure very well, he had a Jules catheter in place due to urinary retention, patient apparently has not followed with urology Dr. Vanessa that was supposed to be done on January 27, 2024 since his PSA is quite elevated, he will need to follow-up as an outpatient, patient also was seen in consultation by vascular surgery who recommended for the patient to have a CT angiography of the right lower extremity and this will be done in the next 24 hours because the patient did receive quite a bit of IV dye during the procedure, we will reevaluate the patient kidney function test tomorrow morning, I will continue to follow patient continues to be somewhat hypertensive, we will increase his lisinopril to 20 mg orally twice every day, continue metoprolol that was ordered by cardiology, follow-up with the patient very closely. 01/30: Patient is laying down in bed in no apparent distress, he is feeling a lot better today, he was seen earlier by vascular surgery it was recommended to follow-up with them as an outpatient, patient would want to be discharged home today, he does not want to wait any more in the hospital, patient does appear to have some issues with compliance but at this point in time patient is cleared by cardiology to be discharged home asked to follow-up with me as an outpatient in 1 week, follow-up with cardiology in 1 to 2 weeks, follow-up with vascular surgery in 1 week, patient is aware that smoking cessation is the [place] to keep his stent and peripheral vascular disease under well control, patient was instructed to follow-up and another appointment was made with urology because of elevated PSA suggestive of prostate cancer. Discharge diagnoses: 1. Right ischemic limb due to severe PAD. Seen by vascular surgery workup as an outpatient. 2. Coronary artery disease status post left heart catheterization that showed evidence of moderate disease of the left circumflex artery with FFR of 0.91 without hemodynamically significant stenosis, moderate disease of the diagonal branch and severe disease of the RCA nondominant vessel status post PCI of the RCA 3. Hypertension and hypertensive cardiovascular disease. 4. Mixed hyperlipidemia. 5. Severe PAD. 6. GERD with esophagitis. 7. Chronic tobacco dependence with COPD. 8. CVA/TIA. 9. Bipolar disorder. 10. Anxiety disorder. 11. Elevated PSA his last PSA was 52 another appointment was made with urology to follow-up since he did not keep his first appointment patient does appear to have a significant elevation that suggest a prostate cancer and patient is aware of that. 12 noncompliance. Patient Condition at Discharge: Serious Plan - Discharge Summary New Discharge Prescriptions: New Aspirin 81 mg PO DAILY #90 tab Metoprolol Tartrate [Lopressor] 12.5 mg PO BID #45 tab Nitroglycerin Sl Tabs [Nitrostat] 0.4 mg SUBLINGUAL Q5M PRN #25 tab PRN Reason: Chest Pain HYDROcodone/APAP 10-325MG [[place] 10-325] 1 each PO Q6HR PRN tab PRN Reason: Pain Tamsulosin [Flomax] 0.4 mg PO DAILY #30 cap Nicotine 21Mg/24Hr Patch [Habitrol] 1 patch TRANSDERM DAILY #30 patch Atorvastatin [Lipitor] 40 mg PO HS #90 tab Clopidogrel [Plavix] 75 mg PO DAILY #90 tab lisinopriL [Zestril] 20 mg PO BID #180 tab Continue Albuterol Inhaler [Ventolin Hfa Inhaler] 1 puff INHALATION RT-Q4H PRN PRN Reason: Shortness Of Breath Ibuprofen [Motrin] 800 mg PO BID PRN PRN Reason: Pain Budesonide/Formoterol Fumarate [Symbicort 80-4.5 Mcg Inhaler] 2 puff INHALATION RT-BID Omeprazole 20 mg PO DAILY Discontinued lisinopriL [Prinivil] 10 mg PO DAILY traMADol HCL 50 mg PO DAILY PRN PRN Reason: Pain Atorvastatin [Lipitor] 20 mg PO DAILY Discharge Medication List Albuterol Inhaler [Ventolin Hfa Inhaler] 1 puff INHALATION RT-Q4H PRN 03/07/18 [History] Ibuprofen [Motrin] 800 mg PO BID PRN 01/01/19 [History] Budesonide/Formoterol Fumarate [Symbicort 80-4.5 Mcg Inhaler] 2 puff INHALATION RT-BID 01/29/24 [History] Omeprazole 20 mg PO DAILY 01/29/24 [History] Aspirin 81 mg PO DAILY #90 tab 01/31/24 [Rx] Atorvastatin [Lipitor] 40 mg PO HS #90 tab 01/31/24 [Rx] Clopidogrel [Plavix] 75 mg PO DAILY #90 tab 01/31/24 [Rx] HYDROcodone/APAP 10-325MG [[place] 10-325] 1 each PO Q6HR PRN tab 01/31/24 [Rx] Metoprolol Tartrate [Lopressor] 12.5 mg PO BID #45 tab 01/31/24 [Rx] Nicotine 21Mg/24Hr Patch [Habitrol] 1 patch TRANSDERM DAILY #30 patch 01/31/24 [Rx] Nitroglycerin Sl Tabs [Nitrostat] 0.4 mg SUBLINGUAL Q5M PRN #25 tab 01/31/24 [Rx] Tamsulosin [Flomax] 0.4 mg PO DAILY #30 cap 01/31/24 [Rx] lisinopriL [Zestril] 20 mg PO BID #180 tab 01/31/24 [Rx] Follow up Appointment(s)/Referral(s): Shelia Garcia MD [STAFF PHYSICIAN] - 1 Week (Office will call patient with appointment date and time) Amelia Jc MD [Primary Care Provider] - 02/06/24 2:15 pm Johnny Caraballo DO [Doctor of Osteopathic Medicine] - 02/16/24 10:00 am Patient Instructions/Handouts: After Radial Heart Catheterization (GEN) Discharge Disposition: HOME SELF-CARE
== END 2024-01-31 14:48 | disposition home or self-care (01) | DRG 321 ==
LOC: EC 07:50 → 3SCARD 10:49
PROVIDERS: ADMIT Internal Medicine; ATTEND Internal Medicine
PROC: 027034Z Dilation of Coronary Artery, One Artery with Drug-eluting Intraluminal Device, Percutaneous Approach (ICD-10-PCS; principal; 2024-01-30 14:10)
PROC: 4A023N8 Measurement of Cardiac Sampling and Pressure, Bilateral, Percutaneous Approach (ICD-10-PCS; 2024-01-30 14:10)
PROC: B2111ZZ Fluoroscopy of Multiple Coronary Arteries using Low Osmolar Contrast (ICD-10-PCS; 2024-01-30 14:10)
DX: I70.201 Unspecified atherosclerosis of native arteries of extremities, right leg (principal); I21.4 Non-ST elevation (NSTEMI) myocardial infarction; I74.5 Embolism and thrombosis of iliac artery; I11.9 Hypertensive heart disease without heart failure; J44.9 Chronic obstructive pulmonary disease, unspecified; F31.9 Bipolar disorder, unspecified; F17.210 Nicotine dependence, cigarettes, uncomplicated; E78.2 Mixed hyperlipidemia; K21.00 Gastro-esophageal reflux disease with esophagitis, without bleeding; I99.8 Other disorder of circulatory system; F41.9 Anxiety disorder, unspecified; R97.20 Elevated prostate specific antigen [PSA]; I25.10 Atherosclerotic heart disease of native coronary artery without angina pectoris; K21.9 Gastro-esophageal reflux disease without esophagitis; Z86.73 Personal history of transient ischemic attack (TIA), and cerebral infarction without residual deficits; Z91.199 Patient's noncompliance with other medical treatment and regimen due to unspecified reason; Z79.82 Long term (current) use of aspirin; Z79.51 Long term (current) use of inhaled steroids; Z79.02 Long term (current) use of antithrombotics/antiplatelets; Z79.899 Other long term (current) drug therapy; Z82.49 Family history of ischemic heart disease and other diseases of the circulatory system
CPT/HCPCS: 36415; 71046; 75635; 80053; 80061; 83605; 83735; 83880; 84484; 85025; 85049; 85379; 85610; 85730; 93005; 93306; 93458; 93799; 93880; 93922; 94640; 94760; 96372; 96374; 96375; 99291

== ENCOUNTER 2024-03-08 08:43 | Inpatient (IN) | payer MEDICARE, OTHER ==
[2024-03-06 15:53] VITALS: BMI 23.6
[2024-03-08] MEDS ORDERED: HYDROmorphone 0.5 MG/0.5 ML SYRINGE IVP PRN (09:41)
[2024-03-08] MEDS: IV FLUID CONTINUATION 1,000 ML IV ONE ×2 (09:55→10:05)
[2024-03-08] MEDS: LACTATED RINGERS 1,000 ML IV SCH ×2 (09:55→10:05)
[2024-03-08] MEDS: LIDOCAINE 1% (10MG/ML) FOR IV START INTRADERMA STA (09:55)
[2024-03-08] MEDS: ONDANSETRON 4 MG/2 ML VIAL IVP ONE (10:19)
[2024-03-08] MEDS ORDERED: PROPOFOL 10 MG/ML 20 ML VIAL IV ONE (11:00)
[2024-03-08] MEDS ORDERED: PHENYLEPHRINE 10 MG/ML VIAL ONE (11:00)
[2024-03-08] MEDS ORDERED: hydrALAZINE HCL 20 MG/ML 1 ML VIAL ONE (11:00)
[2024-03-08] MEDS ORDERED: MIDAZOLAM 2 MG/2 ML VIAL ONE (11:00)
[2024-03-08] MEDS ORDERED: HEPARIN SODIUM,PORCINE 10,000 UNIT/ML 1 ML VIAL ONE (11:00)
[2024-03-08] MEDS ORDERED: fentaNYL (PF) 50 MCG/ML 2 ML AMP ONE (11:00)
[2024-03-08] MEDS ORDERED: WATER FOR INJECTION, STERILE 10 ML VIAL IV ONE (11:00)
[2024-03-08] MEDS ORDERED: NITROGLYCERIN-D5W PMX 50 MG/250 ML BOTTLE IV ONE (11:00)
[2024-03-08] MEDS ORDERED: ePHEDrine 50 MG/ML 1 ML VIAL ONE (11:00)
[2024-03-08] MEDS ORDERED: ROCURONIUM 10 MG/ML (5 ML VIAL) IV ONE (11:00)
[2024-03-08] MEDS ORDERED: GLYCOPYRROLATE 0.2 MG/ML 2 ML VIAL ONE (11:00)
[2024-03-08] MEDS ORDERED: ceFAZolin 1 GM/50 ML BAG (PMX) ONE (11:00)
[2024-03-08] MEDS ORDERED: LIDOCAINE 1% INJ 10MG/ML (20 ML MDV) ONE (11:00)
[2024-03-08] MEDS ORDERED: SUCCINYLCHOLINE CHLORIDE 200 MG/10 ML VIAL IV ONE (11:00)
[2024-03-08] MEDS: ceFAZolin 4,000 MG in SODIUM CHLORIDE 0.9% 1,000 ML IRRIGATION ONE (11:54)
[2024-03-08] MEDS: HEPARIN SODIUM,PORCINE 10,000 UNIT in SODIUM CHLORIDE 0.9% 1,000 ML IRRIGATION ONE (11:54)
[2024-03-08] MEDS: THROMBIN (BOVINE) 5,000 UNIT VIAL TOPICAL ONE (14:59)
[2024-03-08] MEDS: LACTATED RINGERS 1,000 ML IV ONE (15:12)
[2024-03-08] MEDS ORDERED: ONDANSETRON 4 MG/2 ML VIAL IVP PRN (15:53)
--- NOTE | 2024-03-08 15:53 | P.OP ---
Date of Procedure: 03/08/24 Preoperative Diagnosis: Right femoral occlusion 2: Ischemic rest pain right foot Postoperative Diagnosis: Same. Procedure(s) Performed: Right femoral to distal popliteal in situ vein bypass graft. Implants: None. Anesthesia: ARCENIOA Surgeon: Johnny Caraballo Estimated Blood Loss (ml): 100 Pathology: none sent Condition: stable Disposition: floor Indications for Procedure: Patient is a 68-year-old male who had presented with ischemic rest pain symptoms of the right foot. Ankle-brachial index was unable to be calculated as no Doppler flow was detected at the foot. Workup demonstrated right SFA occlusion as well as popliteal artery occlusive disease. The distal popliteal and tibials were patent. Patient was felt to be a poor endovascular candidate and was offered surgical revascularization in the form of a bypass. The procedure, risk and benefits were discussed with the patient. All questions were answered to patient's satisfaction. Description of Procedure: Patient was brought the op room placed in the supine position administered general endotracheal anesthesia administered by the department of anesthesiology. Patient received 2 g of intravenously administered Ancef in the perioperative phase in the form of prophylactic antibiotic therapy. Jules catheter was placed to gravity drainage. Patient's right lower extremity was sterilely prepped draped in usual manner. Skin incision overlying the right femoral artery was made carried down through subcutaneous tissues. Lymphatic layer was divided laterally and swept medially exposing femoral sheath. This was incised. The superficial femoral artery was identified dissected free of investing tissues and encircled with a vessel loop. Dissection was then carried cephalad where the profundus femoris was dissected free of investing tissues and also encircled the vessel. Finally the dissection was then carried to the level of the inguinal ligament. The common femoral was dissected free of investing tissues and encircled with Vesseloops. Attention was turned to the great saphenous vein. The vein appeared to be adequate for bypass purposes. Side branches were dissected free of investing tissues and doubly ligated with silk suture and divided. Its confluence with the femoral vein was identified. Antibiotic moistened gauze was then placed in the wound. Attention was turned to the upper calf level where a skin incision was made along the medial aspect and carried down through subcutaneous tissues. Hemostasis was achieved using electrocautery. Care was taken to avoid injury to the great saphenous vein. The fascia was incised and the soleus muscle was taken down of partially from its attachments to the tibia. The distal popliteal artery was identified and dissected free of investing tissues including graft crossing veins. The artery was relatively soft and felt adequate for outflow purposes. It was encircled with Vesseloops both proximally and distally. The patient was systemically heparinized after adequate circulation time the great saphenous vein at its confluence with the femoral vein was occluded and the great saphenous vein was taken off of the femoral vein. The vein anatomy was then closed with 6-0 Prolene suture placed in running fashion. The great saphenous vein was mobilized as far distally as possible and it was long enough to reach the very proximal portion of the superficial femoral artery but not the proximal common femoral segment. Excellent pulse was identified at the femoral level and this was felt to be adequate. Vesseloops were drawn closed around the profundus, superficial and common femoral arteries and arteriotomy was made and extended with Sun Metzenbaums scissors. Good backbleeding through the profundus was identified and this was flushed with heparinized saline solution. Excellent inflow was also identified. The vein was spatulated match arteriotomy and end-to-side anastomosis between the vein and the artery was completed with 6-0 Prolene suture. Just prior to completion the profundus and superficial femoral arteries were backbled and the common femoral was flushed. No thrombus was retrieved. The anastomotic line was then completed and flow restored through the common into the profundus and superficial femoral segments as well as the vein graft. The vein dilated well and was pulsatile to the first patent valve. Attention was turned to the popliteal incision. The great saphenous vein had been previously skeletonized and mobilized with side branches being ligated with silk suture. The distal end of the vein was clipped and transected. A LeMaitre valvulotome was then passed distally to the proximal segment of the vein graft and valves were lysed. This resulted in good pulsatile flow at the distal end of the bypass graft. The valvulotome was passed and additional time to assure all valves were appropriately treated. The vein graft was then occluded. The Vesseloops around the popliteal artery were drawn closed and arteriotomy was made longitudinally and extended with Sun scissors. Backbleeding was identified. The vein I had enough length to easily reach this level. The vein was spatulated and care was taken avoid any twisting of the vein. And a side anastomosis between the vein graft and the artery was performed with 6-0 Prolene suture. Just prior to completion of the anastomotic line the graft was flushed and backbleeding through the distal popliteal artery was allowed to occur and no thrombus was retrieved. The anastomotic line was completed and flow restored through the vein graft into the popliteal artery. This resulted in excellent palpable pulse in the popliteal artery. Hand-held continuous-wave Doppler demonstrated a very good Doppler audible signal. Ultrasound was then utilized to interrogate the vein graft along his entire length looking for sidebranches. Where identified the skin was marked and eventually 4 counterincisions were made and side branches were ligated. Once again hand-held Doppler demonstrated excellent flow characteristics and the vein graft. The patient's foot pink and up quite nicely. All wounds were inspected for hemostasis. They were also irrigated with antibiotic-containing solution. All wounds were closed with Vicryl for the deeper tissues and 4-0 Monocryl placed in running intradermal fashion. Appropriate dressings were applied. Patient tolerated the procedure well was taken to the recovery area in satisfactory and stable condition.
[2024-03-08] MEDS ORDERED: NITROGLYCERIN SL TABS 0.4 MG TAB SUBLINGUAL PRN (16:00)
[2024-03-08] MEDS ORDERED: ALBUTEROL NEBULIZED 2.5 MG/3 ML INHALATION PRN (16:00)
[2024-03-08] MEDS: HYDROmorphone 0.5 MG/0.5 ML SYRINGE IVP PRN (16:37)
[2024-03-08] MEDS: SYMBICORT 80-4.5 MCG INHALER INHALATION SCH (18:27)
[2024-03-08] MEDS: CLOPIDOGREL 75 MG TAB PO SCH (18:32)
[2024-03-08] MEDS: HYDROcodone/APAP 5-325MG 1 EACH TAB PO PRN (18:33)
[2024-03-08] MEDS: lisinopriL 20 MG TAB PO SCH (19:36)
[2024-03-08] MEDS: METOPROLOL TARTRATE 12.5 MG TAB PO SCH (19:36)
[2024-03-08] MEDS: TAMSULOSIN 0.4 MG CAP.ER.24H PO SCH (19:36)
[2024-03-08] MEDS: ATORVASTATIN 40 MG TAB PO SCH (19:36)
[2024-03-08] MEDS: PANTOPRAZOLE 40 MG TABLET PO SCH (19:36)
--- NOTE | 2024-03-08 19:55 | P.ANPRN ---
Procedure Note - Anesthesia - Invasive Line Right Arterial Line Time Out Performed: Yes Date of Procedure: 03/08/24 Time of Procedure: 09:49 Location of Patient: PreOp Preparation: Sterile Prep, Sterile Dressing Arterial Line Location: Briachial Ultrasound Used: No Purpose - Visualization and Identification of Vasculature: No Image Stored and Saved: No Narrative: Invasive line placement per sterile protocol utilized.
[2024-03-09 08:06] LABS: Basophils % (A) 0 %; Eosinophils # (A) 0.3 k/uL (0-0.7); Eosinophils % (A) 3 %; HCT 32.8 % (39.0-53.0); HGB 10.8 gm/dL (13.0-17.5); Lymphocytes # (A) 1.2 k/uL (1.0-4.8); Lymphocytes % (A) 12 %; MCH 30.5 pg (25.0-35.0); MCV 92.4 fL (80.0-100.0); Monocytes # (A) 0.4 k/uL (0-1.0); Monocytes % (A) 4 %; Neutrophils # (A) 7.9 k/uL (1.3-7.7); Neutrophils % (A) 79 %; Platelet Count 227 k/uL (150-450); RBC 3.55 m/uL (4.30-5.90); RDW 13.6 % (11.5-15.5); WBC 9.9 k/uL (3.8-10.6)
[2024-03-09 08:17] LABS: ALT 20 U/L (4-49); AST 27 U/L (17-59); African American GFR (CKD) 80 (>60 ml/min/1.73 sqM); Albumin 3.7 g/dL (3.5-5.0); Alkaline Phosphatase 55 U/L (38-126); Anion Gap 5 mmol/L; Blood Urea Nitrogen 16 mg/dL (9-20); Calcium 8.7 mg/dL (8.4-10.2); Carbon Dioxide 27 mmol/L (22-30); Chloride 104 mmol/L (98-107); Glucose 129 mg/dL (74-99); Non-African American GFR(CKD) 69 (>60 ml/min/1.73 sqM); Sodium 136 mmol/L (137-145); Total Bilirubin 0.7 mg/dL (0.2-1.3)
[2024-03-09] MEDS: DOCUSATE 100 MG CAP PO SCH (09:53)
[2024-03-09] MEDS: NICOTINE 7MG/24HR PATCH TRANSDERM SCH (09:53)
[2024-03-09] MEDS: ASPIRIN 325 MG TAB PO SCH (09:53)
--- NOTE | 2024-03-09 11:27 | P.PN ---
Subjective Progress Note Date: 03/09/24 Principal diagnosis: Right femoral occlusion Patient is seen and examined today as a follow-up. He is postop day #1 for a right femoral to distal popliteal in situ vein bypass graft. He reports pain down his right leg at surgical sites, pain in his right foot at rest. He has been afebrile. WBC 9.9 hemoglobin 10.8 platelet count 227,000 sodium 136 potassium 4.0 BUN 16 creatinine 1.1. He is a previous smoker states he quit about a month ago but states that he has been craving a cigarette and asking for nicotine patch. Patient also having postop urinary retention. He required straight cath twice and now currently has indwelling Jules catheter. Patient states he does have history of prostate disorder and follows with urology. Objective - Vital Signs Vital signs: Vital Signs Temp 98.0 F 03/09/24 08:56 Pulse 76 03/09/24 08:56 Resp 16 03/09/24 08:56 BP 155/63 03/09/24 08:56 Pulse Ox 98 03/09/24 08:56 FiO2 Intake & Output 03/08/24 03/09/24 03/09/24 18:59 06:59 18:59 Intake Total 3724 130 Output Total 1025 1500 300 Balance 2699 -1500 -170 Weight 74.1 kg Intake: IV 3502 10 Invasive Line 2 10 Oral 222 120 Output: Urine 925 1500 300 Straight 1500 Uretheral (Jules) 300 Estimated Blood Loss 100 Other: Voiding Method Urinal Indwelling Catheter - Exam General appearance: The patient is alert, oriented, appears in no acute distress. HET: Head is normocephalic and atraumatic. Pupils are equal and reactive. Neck: Supple. Heart: Regular. Lungs: Equal expansion, normal respiratory effort. Abdomen: Soft, nontender, nondistended. Extremities: Normal skin color and turgor. Right groin with dressing some old shadowing drainage. Multiple medial incisions with dressings clean dry and intact. Right foot warm, good capillary refill sensorimotor intact. Bypass graft, DP and PT signals present. Neurological: No focal deficits. Strength and sensation are grossly intact. - Labs CBC & Chem 7: 03/09/24 07:33 03/09/24 07:33 Labs: Abnormal Lab Results - Last 24 Hours (Table) 11/01/24 11/01/24 Range/Units 07:33 07:33 RBC 3.55 L (4.30-5.90) m/uL Hgb 10.8 L (13.0-17.5) gm/dL Hct 32.8 L (39.0-53.0) % Neutrophils # 7.9 H (1.3-7.7) k/uL Sodium 136 L (137-145) mmol/L Glucose 129 H (74-99) mg/dL Total Protein 6.0 L (6.3-8.2) g/dL Assessment and Plan Assessment: 1. Right femoral occlusion status post femoral to distal popliteal in situ vein bypass graft 2. Ischemic rest pain right foot 3. Postop urinary retention with history of prostate disorder 4. Smoker 5. COPD 6. Hypertension Plan: 1. Add gabapentin 300 mg 3 times daily 2. Continue pain medication as ordered 3. Encourage ambulation 4. Consult physical therapy and Occupational Therapy 5. Consult case management for home care on discharge 6. Discussed with patient and encourage continued smoking cessation. Patient requesting nicotine patch. 7. Consult to urology for postop retention and history of prostate disorder 8. Rest of medical management per primary medical team 9. Will reevaluate tomorrow, anticipate discharge tomorrow. The impression and plan of care has been dictated as directed. I performed a history and examination of this patient, discussed the same with the dictator. I agree with the dictator's note ,documented as a scribe. Any additional findings or plans will be noted.
[2024-03-09] MEDS: MORPHINE SULFATE 4 MG/ML SYRINGE IV PRN (13:27)
[2024-03-09] MEDS: GABAPENTIN 300 MG CAP PO SCH (14:54)
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
--- NOTE | 2024-03-09 17:05 | P.PN ---
Subjective Progress Note Date: 03/09/24 HISTORY OF PRESENT ILLNESS: 68-year-old male previous medical history significant for hypertension and hypertensive cardiovascular disease, hyperlipidemia, chronic tobacco use and dependence with COPD, peripheral vascular occlusive disease, coronary artery disease status post PCI of the RCA even though he was not on dominant vessel he also was found to have a moderate disease of the LCx and also diagonal branch but the FFR was acceptable at 0.91, patient had a workup for his right ischemic rest pain and he was seen in consultation by vascular surgery initially underwent CT angiography in the workup did show evidence of superficial femoral artery occlusive disease and popliteal artery occlusive disease, however the distal popliteal artery and the tibial artery were patent patient was not a candidate for endovascular revascularization, therefore patient underwent right femoral artery to distal popliteal in situ bypass vein graft that was done successfully by Dr. Hernandez patient became hypotensive postoperatively, we were asked to see the patient for medical management. 03/09: Patient is laying down in bed in no apparent distress, he continues to have no feeling in the mid leg down to the foot, he continues to have a Doppler signal to the dorsalis pedis and posterior tibialis, not as strong in the posterior tibialis, he denies any chest pain, shortness of breath, he had a si gnificant issues with urinary retention yesterday, had a Jules catheter in place, he has been on Flomax 0.4 mg once every day, he would be seen in consultation by urology, patient will continue to use incentive spirometer, continue nebulizer treatment, continue oxygen as needed, continue current jj atment plan, advance diet as tolerated, increase activity level. REVIEW OF SYSTEMS: Constitutional: No documented fever, no chills, no night sweats. No weight change. No weakness, fatigue or lethargy. No daytime sleepiness. EENT: No headache. No blurred vision or double vision, no loss of vision. No loss of Hearing, no ringing in the ears, no dizziness. No nasal drainage or congestion. No epistaxis. No sore throat. Lungs: No shortness of breath, no cough, no sputum production. No wheezing. Reports dyspnea with activity. Cardiovascular: No chest pain, no lower extremity edema. No palpitations. No paroxysmal nocturnal dyspnea. No orthopnea. No lightheadedness or dizziness. No syncopal episodes. Abdominal: Reports no abdominal pain. No nausea, vomiting. No diarrhea. No constipation. No bloody or tarry stools reports loss of appetite. Genitourinary: No dysuria, increased frequency, urgency. positive for urinary retention post Jules catheterization Musculoskeletal: No myalgias. No muscle weakness, no gait dysfunction, no frequent falls. Positive for back pain. No neck pain. Integumentary: Surgical wound on the right side clean and dry., no lesions. No rash or pruritus. No unusual bruising. positive for change in hair of the right lower extremity due to PAD.. Neurologic: No aphasia. No facial droop. No change in mentation. No head injury. Occasional headache. No paralysis. Positive for paresthesia of the right lower extremity. Psychiatric: No depression. No anxiety. No mood swings. Endocrine: No abnormal blood sugars. No weight change. PHYSICAL EXAMINATION: General: 68-year-old male laying down in bed in no distress. HEENT: Head is atraumatic, normocephalic, pupils were equal round reactive to light and recommendation, extraocular muscle movement were intact, sclera nonicteric, conjunctivae were pale, mucous membranes of the mouth are somewhat dry. Neck: Supple, no JVP, normal carotid upstroke bilaterally, no lymphadenopathy. Chest: Decreased breath sounds at the bases, few rhonchi, no expiratory wheezes, no chest wall tenderness, no intercostal retractions. Heart: First heart sound is normal, second heart sounds normal there is systolic ejection murmur 2/6 located left sternal border. Abdomen: Soft, nontender, nondistended, positive bowel sounds, there is no hepatosplenomegaly left inguinal hernia Extremities: There is no edema, no calf tenderness, dorsalis pedis +1 bilaterally. Neurologic examination: Patient is awake alert and oriented x3 , cranial nerves II-12 appear grossly intact, muscle power were 5 out of 5 in upper extremities and 5 out of 5 in bilateral lower extremities, deep tendon reflexes normal bilaterally. ASSESSMENT AND PLAN: 1. Postoperative day #1 status post right femoral artery to distal popliteal artery in situ vein bypass graft. Continue current management as outlined by vascular surgery continue current management, continue IV fluid resuscitation, follow-up with the patient very closely. 2. Coronary artery disease status post PCI of the RCA that was done in January 2024 continue patient on metoprolol 12.5 mg orally twice every day, lisinopril 20 mg orally twice every day, continue Plavix 75 mg once every day, aspirin 80 mg once every day, continue atorvastatin 40 mg orally once every day keep LDL 55-70. 3. Hypertension and hypertensive cardiovascular disease. Continue patient on lisinopril 20 mg orally twice every day, metoprolol 12.5 mg orally twice every d ay, monitor the patient blood pressure very closely. 4. Mixed hyperlipidemia. Continue atorvastatin 40 mg once every day, monitor lipid panel, keep LDL 55-70. 5. GERD with esophagitis. Continue pantoprazole 40 mg once every day. 6. Chronic tobacco dependence with COPD. Smoking cessation and counseling and increased risk of CVA, CAD and malignancy. Continue albuterol HFA 2 puffs inhalation every 4 hours as needed continue Symbicort 80/45 mcg 2 puffs elation twice every day. 7. CVA/TIA. Continue patient on aspirin 81 mg once every day, clopidogrel 75 mg once every day, as well as atorvastatin 40 mg orally daily for secondary prevention. 8. Bipolar disorder. patient is not taking any medication at this point in time. 9. Anxiety disorder. Patient is not taking any medication at this point in time. 10. Elevated PSA his last PSA was 52 he followed with urology as an outpatient. 11. Urinary retention status post Jules catheterization continue Flomax 0.4 mg orally once every day. 12. Will continue to follow with you. Objective - Vital Signs Vital signs: Vital Signs Temp 97.7 F 03/09/24 15:51 Pulse 74 03/09/24 15:51 Resp 18 03/09/24 15:51 BP 130/63 03/09/24 15:51 Pulse Ox 99 03/09/24 15:51 FiO2 Intake & Output 03/08/24 03/09/24 03/09/24 18:59 06:59 18:59 Intake Total 3724 606 Output Total 1025 1500 1950 Balance 2699 -1500 -1344 Weight 74.1 kg Intake: IV 3502 10 Invasive Line 2 10 Oral 222 596 Output: Urine 925 1500 1950 Straight 1500 Uretheral (Jules) 1150 Estimated Blood Loss 100 Other: Voiding Method Urinal Indwelling Catheter - Labs CBC & Chem 7: 03/09/24 07:33 03/09/24 07:33 Labs: Abnormal Lab Results - Last 24 Hours (Table) 03/09/24 03/09/24 Range/Units 07:33 07:33 RBC 3.55 L (4.30-5.90) m/uL Hgb 10.8 L (13.0-17.5) gm/dL Hct 32.8 L (39.0-53.0) % Neutrophils # 7.9 H (1.3-7.7) k/uL Sodium 136 L (137-145) mmol/L Glucose 129 H (74-99) mg/dL Total Protein 6.0 L (6.3-8.2) g/dL
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
--- NOTE | 2024-03-10 10:13 | P.DS ---
Providers Date of admission: 03/08/24 08:43 Attending physician: Johnny Caraballo DO Consults: 03/08/24 15:59 Consult Physician Routine Consulting Provider: Amelia Jc Consult Reason/Comments: medical mgt Do you want consulting provider notified?: Yes 03/09/24 09:02 Consult Physician Routine Consulting Provider: Tim Childress Consult Reason/Comments: post op urinary retention, BPH known to you Do you want consulting provider notified?: Yes Primary care physician: Amelia Jc Hospital Course: Patient is a 68-year-old male who presented to the hospital on 03/08/2024 for a right lower extremity bypass. He did well with this and has been recuperating well. He stayed an extra night for pain control but is tolerating as well as up to bed. He did have a Jules catheter placed for urinary retention which will be going home with him at this time with follow-up for urology. Otherwise at this point he maintains satisfactory vitals. His right lower extremity is clean and dry with a palpable dorsalis pedis pulse. He has mild edema and reperfusion findings. We discussed the importance of elevation and continued ambulation and movement. Discharge instructions were given. He seemed understood and is found to be in satisfactory condition for discharge home. Plan - Discharge Summary Discharge Rx Participant: No New Discharge Prescriptions: New Aspirin 325 mg PO DAILY #30 tab Docusate [Colace] 100 mg PO DAILY cap Nicotine 7Mg/24Hr Patch [Habitrol] 1 patch TRANSDERM DAILY #30 patch Gabapentin [Neurontin] 300 mg PO TID #90 cap Continue Albuterol Inhaler [Ventolin Hfa Inhaler] 1 puff INHALATION RT-Q4H PRN PRN Reason: Shortness Of Breath Metoprolol Tartrate [Lopressor] 12.5 mg PO BID #45 tab Nitroglycerin Sl Tabs [Nitrostat] 0.4 mg SUBLINGUAL Q5M PRN #25 tab PRN Reason: Chest Pain HYDROcodone/APAP 10-325MG [Sherrill 10-325] 1 each PO Q6HR PRN tab PRN Reason: Pain Budesonide/Formoterol Fumarate [Symbicort 80-4.5 Mcg Inhaler] 2 puff INHALATION RT-BID Omeprazole 20 mg PO HS Atorvastatin [Lipitor] 40 mg PO HS #90 tab Clopidogrel [Plavix] 75 mg PO DAILY #90 tab lisinopriL [Zestril] 20 mg PO BID #180 tab Discontinued Aspirin 81 mg PO DAILY #90 tab No Action Tamsulosin [Flomax] 0.4 mg PO HS Discharge Medication List Albuterol Inhaler [Ventolin Hfa Inhaler] 1 puff INHALATION RT-Q4H PRN 03/07/18 [History] Budesonide/Formoterol Fumarate [Symbicort 80-4.5 Mcg Inhaler] 2 puff INHALATION RT-BID 01/29/24 [History] Omeprazole 20 mg PO HS 01/29/24 [History] Atorvastatin [Lipitor] 40 mg PO HS #90 tab 01/31/24 [Rx] Clopidogrel [Plavix] 75 mg PO DAILY #90 tab 01/31/24 [Rx] HYDROcodone/APAP 10-325MG [Sherrill 10-325] 1 each PO Q6HR PRN tab 01/31/24 [Rx] Metoprolol Tartrate [Lopressor] 12.5 mg PO BID #45 tab 01/31/24 [Rx] Nitroglycerin Sl Tabs [Nitrostat] 0.4 mg SUBLINGUAL Q5M PRN #25 tab 01/31/24 [Rx] lisinopriL [Zestril] 20 mg PO BID #180 tab 01/31/24 [Rx] Tamsulosin [Flomax] 0.4 mg PO HS 03/06/24 [History] Aspirin 325 mg PO DAILY #30 tab 03/09/24 [Rx] Docusate [Colace] 100 mg PO DAILY cap 03/09/24 [Rx] Gabapentin [Neurontin] 300 mg PO TID #90 cap 03/09/24 [Rx] Nicotine 7Mg/24Hr Patch [Habitrol] 1 patch TRANSDERM DAILY #30 patch 03/09/24 [Rx] Follow up Appointment(s)/Referral(s): [facility], [NON-STAFF] - Johnny Caraballo DO [Doctor of Osteopathic Medicine] - 1 Week Campos Bolivar MD [STAFF PHYSICIAN] - 1 Week Patient Instructions/Handouts: *Surgery [facility] - Jules Catheter Instructions, Gabapentin (By mouth), Jules Catheter Placement and Care (DC), Urinary Leg Bag (GEN), Femoropopliteal Bypass (DC) Activity/Diet/Wound Care/Special Instructions: No driving until cleared by your surgeon. Avoid heavy lifting greater than 10 lbs , pushing, pulling, straining, flights of stairs until cleared by your surgeon. ok to shower but no baths, pools, soaking in tubs for three days to avoid risk of infection. signs of infection ie: fever, rash, drainage from surgical sites, swelling contact doctor or return to ER immediately. Heavy bleeding from surgical sites apply firm direct pressure and return to ER. Do not attempt to drive self. low sodium/low fat diet Recommend smoking cessation. Continue with nicotine patches. Discharge/Stand Alone Forms: [employer] Pamphlet, Who Do I Call?, Community Resources, Personal [employer] Discharge Disposition: HOME WITH HOME HEALTH SERVICES
[2024-03-10 10:23] VITALS: BP 102/63; PULSE 60; RESP 18; TEMP 98
--- NOTE | 2024-03-10 15:57 | P.PN ---
Subjective Progress Note Date: 03/10/24 HISTORY OF PRESENT ILLNESS: 68-year-old male previous medical history significant for hypertension and hypertensive cardiovascular disease, hyperlipidemia, chronic tobacco use and dependence with COPD, peripheral vascular occlusive disease, coronary artery disease status post PCI of the RCA even though he was not on dominant vessel he also was found to have a moderate disease of the LCx and also diagonal branch but the FFR was acceptable at 0.91, patient had a workup for his right ischemic rest pain and he was seen in consultation by vascular surgery initially underwent CT angiography in the workup did show evidence of superficial femoral artery occlusive disease and popliteal artery occlusive disease, however the distal popliteal artery and the tibial artery were patent patient was not a candidate for endovascular revascularization, therefore patient underwent right femoral artery to distal popliteal in situ bypass vein graft that was done successfully by Dr. Hernandez patient became hypotensive postoperatively, we were asked to see the patient for medical management. 03/09: Patient is laying down in bed in no apparent distress, he continues to have no feeling in the mid leg down to the foot, he continues to have a Doppler signal to the dorsalis pedis and posterior tibialis, not as strong in the posterior tibialis, he denies any chest pain, shortness of breath, he had a si gnificant issues with urinary retention yesterday, had a Jules catheter in place, he has been on Flomax 0.4 mg once every day, he would be seen in consultation by urology, patient will continue to use incentive spirometer, continue nebulizer treatment, continue oxygen as needed, continue current jj atment plan, advance diet as tolerated, increase activity level. 03/10: Patient is doing fine he will be discharged home today and follow-up with us as an outpatient, he continues to have a Jules catheter in place, and follow- up with urology next week. REVIEW OF SYSTEMS: Constitutional: No documented fever, no chills, no night sweats. No weight change. No weakness, fatigue or lethargy. No daytime sleepiness. EENT: No headache. No blurred vision or double vision, no loss of vision. No loss of Hearing, no ringing in the ears, no dizziness. No nasal drainage or congestion. No epistaxis. No sore throat. Lungs: No shortness of breath, no cough, no sputum production. No wheezing. Reports dyspnea with activity. Cardiovascular: No chest pain, no lower extremity edema. No palpitations. No paroxysmal nocturnal dyspnea. No orthopnea. No lightheadedness or dizziness. No syncopal episodes. Abdominal: Reports no abdominal pain. No nausea, vomiting. No diarrhea. No constipation. No bloody or tarry stools reports loss of appetite. Genitourinary: No dysuria, increased frequency, urgency. positive for urinary retention post Jules catheterization Musculoskeletal: No myalgias. No muscle weakness, no gait dysfunction, no frequent falls. Positive for back pain. No neck pain. Integumentary: Surgical wound on the right side clean and dry., no lesions. No rash or pruritus. No unusual bruising. positive for change in hair of the right lower extremity due to PAD.. Neurologic: No aphasia. No facial droop. No change in mentation. No head injury. Occasional headache. No paralysis. Positive for paresthesia of the right lower extremity. Psychiatric: No depression. No anxiety. No mood swings. Endocrine: No abnormal blood sugars. No weight change. PHYSICAL EXAMINATION: General: 68-year-old male laying down in bed in no distress. HEENT: Head is atraumatic, normocephalic, pupils were equal round reactive to light and recommendation, extraocular muscle movement were intact, sclera nonicteric, conjunctivae were pale, mucous membranes of the mouth are somewhat dry. Neck: Supple, no JVP, normal carotid upstroke bilaterally, no lymphadenopathy. Chest: Decreased breath sounds at the bases, few rhonchi, no expiratory wheezes, no chest wall tenderness, no intercostal retractions. Heart: First heart sound is normal, second heart sounds normal there is systolic ejection murmur 2/6 located left sternal border. Abdomen: Soft, nontender, nondistended, positive bowel sounds, there is no hepatosplenomegaly left inguinal hernia Extremities: There is no edema, no calf tenderness, dorsalis pedis +1 bilaterally. Neurologic examination: Patient is awake alert and oriented x3 , cranial nerves II-12 appear grossly intact, muscle power were 5 out of 5 in upper extremities and 5 out of 5 in bilateral lower extremities, deep tendon reflexes normal bilaterally. ASSESSMENT AND PLAN: 1. Postoperative day #2 status post right femoral artery to distal popliteal artery in situ vein bypass graft. Continue current management as outlined by vascular surgery continue current management, continue IV fluid resuscitation, follow-up with the patient very closely. 2. Coronary artery disease status post PCI of the RCA that was done in January 2024 continue patient on metoprolol 12.5 mg orally twice every day, lisinopril 20 mg orally twice every day, continue Plavix 75 mg once every day, aspirin 80 mg once every day, continue atorvastatin 40 mg orally once every day keep LDL 55-70. 3. Hypertension and hypertensive cardiovascular disease. Continue patient on lisinopril 20 mg orally twice every day, metoprolol 12.5 mg orally twice every day, monitor the patient blood pressure very closely. 4. Mixed hyperlipidemia. Continue atorvastatin 40 mg once every day, monitor lipid panel, keep LDL 55-70. 5. GERD with esophagitis. Continue pantoprazole 40 mg once every day. 6. Chronic tobacco dependence with COPD. Smoking cessation and counseling and increased risk of CVA, CAD and malignancy. Continue albuterol HFA 2 puffs inhalation every 4 hours as needed continue Symbicort 80/45 mcg 2 puffs elation twice every day. 7. CVA/TIA. Continue patient on aspirin 81 mg once every day, clopidogrel 75 mg once every day, as well as atorvastatin 40 mg orally daily for secondary prevention. 8. Bipolar disorder. patient is not taking any medication at this point in time. 9. Anxiety disorder. Patient is not taking any medication at this point in time. 10. Elevated PSA his last PSA was 52 he followed with urology as an outpatient. 11. Urinary retention status post Jules catheterization continue Flomax 0.4 mg orally once every day. 12. Patient is medically stable to be discharged home. Objective - Vital Signs Vital signs: Vital Signs Temp 98.2 F 03/10/24 03:22 Pulse 65 03/10/24 03:22 Resp 20 03/10/24 03:22 BP 121/59 03/10/24 03:22 Pulse Ox 97 03/10/24 03:22 FiO2 Intake & Output 03/09/24 03/09/24 03/10/24 06:59 18:59 06:59 Intake Total 1124 333 Output Total 1500 2725 1700 Balance -1500 -1601 -1367 Weight 72.3 kg Intake: IV 10 Invasive Line 2 10 Oral 1114 333 Output: Urine 1500 2725 1700 Straight 1500 Uretheral (Jules) 1925 Other: Voiding Method Urinal Indwelling Catheter Indwelling Catheter - Labs CBC & Chem 7: 03/09/24 07:33 03/09/24 07:33 Labs: Abnormal Lab Results - Last 24 Hours (Table) 03/09/24 03/09/24 Range/Units 07:33 07:33 RBC 3.55 L (4.30-5.90) m/uL Hgb 10.8 L (13.0-17.5) gm/dL Hct 32.8 L (39.0-53.0) % Neutrophils # 7.9 H (1.3-7.7) k/uL Sodium 136 L (137-145) mmol/L Glucose 129 H (74-99) mg/dL Total Protein 6.0 L (6.3-8.2) g/dL
== END 2024-03-10 11:48 | disposition home health service (06) | DRG 254 ==
LOC: 2ORMAIN 08:43 → 3SCARD 16:13
PROVIDERS: ADMIT Surgery; ATTEND Surgery
PROC: 06BP0ZZ Excision of Right Saphenous Vein, Open Approach (ICD-10-PCS; 2024-03-08)
PROC: 041K09L Bypass Right Femoral Artery to Popliteal Artery with Autologous Venous Tissue, Open Approach (ICD-10-PCS; principal; 2024-03-08 11:00)
DX: I70.221 Atherosclerosis of native arteries of extremities with rest pain, right leg (principal); E78.2 Mixed hyperlipidemia; F17.210 Nicotine dependence, cigarettes, uncomplicated; R33.9 Retention of urine, unspecified; F31.9 Bipolar disorder, unspecified; F41.9 Anxiety disorder, unspecified; I11.9 Hypertensive heart disease without heart failure; I25.10 Atherosclerotic heart disease of native coronary artery without angina pectoris; J44.9 Chronic obstructive pulmonary disease, unspecified; K21.00 Gastro-esophageal reflux disease with esophagitis, without bleeding; Z71.6 Tobacco abuse counseling; Z79.02 Long term (current) use of antithrombotics/antiplatelets; Z79.899 Other long term (current) drug therapy; Z79.51 Long term (current) use of inhaled steroids; Z79.82 Long term (current) use of aspirin; Z86.73 Personal history of transient ischemic attack (TIA), and cerebral infarction without residual deficits; Z98.61 Coronary angioplasty status
CPT/HCPCS: 80053; 85025; 86850; 86900; 86901; 94640

== ENCOUNTER 2024-03-20 19:44 | Inpatient (IN) | payer MEDICARE, OTHER ==
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
[2024-03-20] MEDS: ACETAMINOPHEN TAB 500 MG TAB PO STA (20:08)
[2024-03-20] MEDS: IBUPROFEN 600 MG TAB PO STA (20:09)
[2024-03-20] MEDS: SODIUM CHLORIDE 0.9% 1,000 ML IV STA ×2 (20:10→21:51)
[2024-03-20 20:27] LABS: Basophils % (A) 0 %; Eosinophils # (A) 0.1 k/uL (0-0.7); Eosinophils % (A) 1 %; HCT 28.7 % (39.0-53.0); HGB 9.7 gm/dL (13.0-17.5); Lymphocytes # (A) 0.9 k/uL (1.0-4.8); Lymphocytes % (A) 8 %; MCH 30.8 pg (25.0-35.0); MCHC 33.6 g/dL (31.0-37.0); MCV 91.8 fL (80.0-100.0); Monocytes # (A) 0.5 k/uL (0-1.0); Monocytes % (A) 4 %; Neutrophils # (A) 9.4 k/uL (1.3-7.7); Neutrophils % (A) 86 %; Platelet Count 256 k/uL (150-450); RBC 3.13 m/uL (4.30-5.90); RDW 13.1 % (11.5-15.5)
[2024-03-20 20:37] LABS: ALT 31 U/L (4-49); African American GFR (CKD) 32 (>60 ml/min/1.73 sqM); Albumin 3.8 g/dL (3.5-5.0); Anion Gap 11 mmol/L; Blood Urea Nitrogen 76 mg/dL (9-20); Calcium 8.5 mg/dL (8.4-10.2); Carbon Dioxide 18 mmol/L (22-30); Chloride 100 mmol/L (98-107); Glucose 115 mg/dL (74-99); Lipase 57 U/L (23-300); Non-African American GFR(CKD) 28 (>60 ml/min/1.73 sqM); Sodium 129 mmol/L (137-145); Total Bilirubin 0.7 mg/dL (0.2-1.3); Total Protein 6.9 g/dL (6.3-8.2)
[2024-03-20] MEDS: ONDANSETRON 4 MG/2 ML VIAL IVP STA (20:59)
[2024-03-20] MEDS: HYDROmorphone 1 MG/ML 1 ML SYRINGE IVP STA (21:00)
[2024-03-20 21:03] LABS: AST 41 U/L (17-59); Alkaline Phosphatase 88 U/L (38-126); Magnesium 1.9 mg/dL (1.6-2.3); Phosphorus 3.8 mg/dL (2.5-4.5); Potassium 4.7 mmol/L (3.5-5.1)
--- NOTE | 2024-03-20 21:07 | XR ---
EXAMINATION TYPE: XR chest 2V DATE OF EXAM: 03/20/2024 8:44 PM COMPARISON: 01/29/2024 CLINICAL INDICATION: Male, 68 years old with history of Weakness; [facility] TECHNIQUE: XR chest 2V Frontal and lateral views of the chest. FINDINGS: Lungs/Pleura: There is no evidence of pleural effusion, focal consolidation, or pneumothorax. Pulmonary vascularity: Unremarkable. Heart/mediastinum: Cardiomediastinal silhouette is unremarkable. Musculoskeletal: No acute osseous pathology. IMPRESSION: No acute cardiopulmonary disease/process. [facility], , 03/20/2024 9:04 PM
[2024-03-20] MEDS ORDERED: NALOXONE 0.4 MG/ML 1 ML VIAL IV PRN (21:12)
[2024-03-20] MEDS ORDERED: ONDANSETRON 4 MG/2 ML VIAL IVP PRN (21:12)
[2024-03-20 21:28] LABS: Partial Thromboplastin Time 24.4 sec (22.0-30.0); Prothrombin Time 11.3 sec (10.0-12.5)
--- NOTE | 2024-03-20 21:50 | CT ---
EXAMINATION TYPE: CT abdomen pelvis wo con DATE OF EXAM: 03/20/2024 9:39 PM COMPARISON: r 01/31/2024 CLINICAL INDICATION: Male, 68 years old with history of pain; flu like symptoms x 3 days, chills, con gestion, fever, chronic low back pain. Per pt fever 104 this morning. TECHNIQUE: Axial CT abdomen pelvis wo con;Sagittal and coronal reformats were created on a separate workstation. Contrast used: mL of , (none if empty) Oral contrast used: without Oral Contrast (none if empty) CT DLP: 524.1 mGycm, Automated exposure control for dose reduction was used. FINDINGS: LOWER CHEST: Unremarkable ABDOMEN LIVER: Unremarkable GALLBLADDER AND BILE DUCTS: Unremarkable. PANCREAS: Unremarkable. SPLEEN: Unremarkable. ADRENAL GLANDS: Unremarkable. KIDNEYS AND URETERS: Mild bilateral hydronephrosis. No obstructing calculi. PELVIS BLADDER: No evidence for wall thickening or mass given limitations of exam. REPRODUCTIVE: Prostate is enlarged in size measuring 5.1 cm in transverse dimension. ABDOMEN & PELVIS STOMACH AND BOWEL: No evidence of bowel obstruction. Scattered colonic diverticula. PERITONEUM/RETROPERITONEUM: No evidence of pneumoperitoneum or free fluid. VASCULATURE: Moderate atherosclerotic calcifications are present throughout the abdominal aorta and i ts branches. No evidence of aortic aneurysm. Ectatic infrarenal abdominal aorta measuring up to 2.8 c m. MUSCULOSKELETAL: No acute osseous abnormalities. Moderate disc degeneration changes are present throu ghout the thoracolumbar spine. LYMPH NODES: No gross evidence for lymphadenopathy. SOFT TISSUE/ABDOMINAL WALL: Fat-containing inguinal hernias bilaterally. Suspected prior procedural c hanges or inguinal canal.r IMPRESSION: 1. No definitive acute intracranial process. 2. Mild bilateral hydronephrosis with prostatomegaly correlate for chronic bladder outlet obstructio n. Correlate with urinalysis for superimposed infection. 3. Bilateral fat-containing inguinal hernias. 4. Prostatomegaly, correlate with serum PSA. 5. 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 [facility], , 03/20/2024 9:48 PM
[2024-03-20] MEDS: PANTOPRAZOLE 40 MG/10 ML VIAL IV SCH (21:51)
[2024-03-20] MEDS: SODIUM CHLORIDE 0.9% 1,000 ML IV SCH (21:51)
[2024-03-20 22:32] LABS: Appearance,Urine Cloudy (Clear); Bacteria,Urine Many /hpf; Bilirubin,Urine Negative (Negative); Blood,Urine Small (Negative); Color,Urine Colorless; Glucose,Urine (UA) Negative (Negative); Hyaline Casts,Urine 30 /lpf (0-2); Ketones,Urine Negative (Negative); Leukocyte Esterase,Urine Moderate (Negative); Mucus,Urine Rare /hpf; Nitrite,Urine Positive (Negative); PH, Urine 5.5 (5.0-8.0); Protein,Urine 1+ (Negative); RBC,Urine 12 /hpf (0-5); Specific Gravity,Urine 1.012 (1.001-1.035); Urobilinogen,Urine <2.0 mg/dL (<2.0); WBC,Urine 61 /hpf (0-5)
[2024-03-20] MEDS: SODIUM CHLORIDE 0.9% 500 ML 500 ML IV ONE (23:15)
[2024-03-21 04:05] LABS: Basophils % (A) 0 %; Eosinophils # (A) 0.1 k/uL (0-0.7); Eosinophils % (A) 1 %; HGB 8.7 gm/dL (13.0-17.5); Lymphocytes # (A) 0.7 k/uL (1.0-4.8); Lymphocytes % (A) 10 %; MCH 31.3 pg (25.0-35.0); MCHC 33.7 g/dL (31.0-37.0); MCV 92.9 fL (80.0-100.0); Mean Platelet Volume 9.5; Monocytes # (A) 0.3 k/uL (0-1.0); Monocytes % (A) 4 %; Neutrophils # (A) 6.3 k/uL (1.3-7.7); Neutrophils % (A) 84 %; Platelet Count 242 k/uL (150-450); RDW 13.8 % (11.5-15.5); WBC 7.6 k/uL (3.8-10.6)
[2024-03-21 04:36] LABS: ALT 30 U/L (4-49); AST 35 U/L (17-59); African American GFR (CKD) 34 (>60 ml/min/1.73 sqM); Alkaline Phosphatase 93 U/L (38-126); Anion Gap 7 mmol/L; Blood Urea Nitrogen 66 mg/dL (9-20); Calcium 7.6 mg/dL (8.4-10.2); Carbon Dioxide 16 mmol/L (22-30); Chloride 111 mmol/L (98-107); Glucose 120 mg/dL (74-99); Non-African American GFR(CKD) 30 (>60 ml/min/1.73 sqM); Phosphorus 4.5 mg/dL (2.5-4.5); Sodium 134 mmol/L (137-145); Total Bilirubin 0.3 mg/dL (0.2-1.3); Total Protein 5.5 g/dL (6.3-8.2)
[2024-03-21] MEDS: HYDROmorphone 1 MG/ML 1 ML SYRINGE IVP PRN (04:59)
[2024-03-21] MEDS: ACETAMINOPHEN TAB 325 MG TAB PO PRN (07:43)
[2024-03-21] MEDS: CLOPIDOGREL 75 MG TAB PO SCH (10:05)
[2024-03-21] MEDS: METOPROLOL TARTRATE 25 MG TAB PO SCH (10:05)
[2024-03-21] MEDS: ASPIRIN 81 MG PO SCH (10:05)
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
[2024-03-21] MEDS ORDERED: NITROGLYCERIN SL TABS 0.4 MG TAB SUBLINGUAL PRN (14:38)
[2024-03-21] MEDS ORDERED: ALBUTEROL NEBULIZED 2.5 MG/3 ML INHALATION PRN (14:38)
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
[2024-03-21] MEDS: DEXTROSE 5% IN WATER 1,000 ML with SODIUM BICARB (1 MEQ/ML) 150 ML IV SCH (15:40)
[2024-03-21] MEDS: LIDOCAINE 2% URO-JET JELLY 5 ML KIT URETHRAL STA (16:51)
[2024-03-21] MEDS: TAMSULOSIN 0.4 MG CAP.ER.24H PO SCH (18:54)
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
[2024-03-21] MEDS: ATORVASTATIN 40 MG TAB PO SCH (20:01)
[2024-03-21] MEDS: GABAPENTIN 300 MG CAP PO SCH (20:01)
[2024-03-21] MEDS ORDERED: ACETAMINOPHEN IV (For NPO) 1,000 MG in EMPTY BAG 1 BAG IVPB PRN (20:36)
--- NOTE | 2024-03-21 21:00 | XR ---
EXAMINATION TYPE: XR chest 1V portable DATE OF EXAM: 03/21/2024 8:37 PM COMPARISON: Chest radiographs from on 1224 CLINICAL INDICATION: Male, 68 years old with history of Restlessness; fever TECHNIQUE: XR chest 1V portable Frontal view of the chest. FINDINGS: Lungs/Pleura: There is no evidence of pleural effusion, focal consolidation, or pneumothorax. Pulmonary vascularity: Unremarkable. Heart/mediastinum: Cardiomediastinal silhouette is unremarkable. Atherosclerotic calcifications are seen in the aorta. Musculoskeletal: No acute osseous pathology. IMPRESSION: No acute cardiopulmonary disease/process. [facility], , 03/21/2024 8:58 PM
[2024-03-21 21:05] LABS: Basophils % (A) 0 %; Eosinophils % (A) 1 %; HCT 24.7 % (39.0-53.0); HGB 8.3 gm/dL (13.0-17.5); Lymphocytes # (A) 0.7 k/uL (1.0-4.8); Lymphocytes % (A) 13 %; MCH 30.9 pg (25.0-35.0); MCHC 33.8 g/dL (31.0-37.0); MCV 91.4 fL (80.0-100.0); Mean Platelet Volume 8.7; Monocytes # (A) 0.5 k/uL (0-1.0); Monocytes % (A) 9 %; Neutrophils # (A) 4.1 k/uL (1.3-7.7); Neutrophils % (A) 74 %; Platelet Count 236 k/uL (150-450); RDW 13.2 % (11.5-15.5); WBC 5.5 k/uL (3.8-10.6)
[2024-03-21 21:13] LABS: ALT 32 U/L (4-49); AST 37 U/L (17-59); African American GFR (CKD) 47 (>60 ml/min/1.73 sqM); Albumin 3.4 g/dL (3.5-5.0); Alkaline Phosphatase 95 U/L (38-126); Anion Gap 8 mmol/L; Blood Urea Nitrogen 45 mg/dL (9-20); Calcium 8.1 mg/dL (8.4-10.2); Carbon Dioxide 21 mmol/L (22-30); Chloride 104 mmol/L (98-107); Glucose 112 mg/dL (74-99); Non-African American GFR(CKD) 40 (>60 ml/min/1.73 sqM); Potassium 3.9 mmol/L (3.5-5.1); Sodium 133 mmol/L (137-145); Total Bilirubin 0.4 mg/dL (0.2-1.3)
[2024-03-22 08:18] LABS: Basophils % (A) 0 %; Eosinophils # (A) 0.1 k/uL (0-0.7); Eosinophils % (A) 1 %; HCT 27.2 % (39.0-53.0); HGB 9.3 gm/dL (13.0-17.5); Lymphocytes # (A) 0.8 k/uL (1.0-4.8); Lymphocytes % (A) 15 %; MCH 31.2 pg (25.0-35.0); MCHC 34.2 g/dL (31.0-37.0); MCV 91.5 fL (80.0-100.0); Mean Platelet Volume 8.5; Monocytes # (A) 0.5 k/uL (0-1.0); Monocytes % (A) 9 %; Neutrophils % (A) 73 %; Platelet Count 302 k/uL (150-450); RBC 2.97 m/uL (4.30-5.90); RDW 13.2 % (11.5-15.5); WBC 5.5 k/uL (3.8-10.6)
[2024-03-22] MEDS: DOCUSATE 100 MG CAP PO SCH (08:35)
[2024-03-22 08:41] LABS: ALT 38 U/L (4-49); AST 45 U/L (17-59); African American GFR (CKD) 61 (>60 ml/min/1.73 sqM); Albumin 3.7 g/dL (3.5-5.0); Alkaline Phosphatase 107 U/L (38-126); Anion Gap 9 mmol/L; Blood Urea Nitrogen 35 mg/dL (9-20); Calcium 8.5 mg/dL (8.4-10.2); Carbon Dioxide 27 mmol/L (22-30); Chloride 97 mmol/L (98-107); Glucose 103 mg/dL (74-99); Non-African American GFR(CKD) 53 (>60 ml/min/1.73 sqM); Potassium 3.8 mmol/L (3.5-5.1); Sodium 133 mmol/L (137-145); Total Bilirubin 0.4 mg/dL (0.2-1.3); Total Protein 6.5 g/dL (6.3-8.2)
[2024-03-22] MEDS: NICOTINE 7MG/24HR PATCH TRANSDERM SCH (09:17)
--- NOTE | 2024-03-22 12:18 | P.PN ---
Subjective patient is seen for follow-up for acute kidney injury. Renal function has improved. Patient was evaluated by urology for BPH and mild bilateral hydronephrosis. Currently maintained on Flomax. Serum creatinine has improved to 1.37 today from 2.3 on admission. No significant complaints. Objective - Vital Signs Vital signs: Vital Signs Temp 100.8 F H 03/22/24 08:00 Pulse 90 03/22/24 08:00 Resp 20 03/22/24 08:00 BP 167/65 03/22/24 08:00 Pulse Ox 96 03/22/24 08:00 FiO2 Intake & Output 03/21/24 03/22/24 03/22/24 18:59 06:59 18:59 Intake Total 222 Output Total 525 200 Balance -525 22 Weight 72.2 kg Intake: Oral 222 Output: Urine 525 200 Other: Voiding Method Urinal Urinal - Exam patient is awake, comfortable, no acute distress. 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 exam grossly intact - Labs CBC & Chem 7: 03/22/24 07:30 03/22/24 07:30 Labs: Abnormal Lab Results - Last 24 Hours (Table) 03/21/24 03/21/24 03/22/24 Range/Units 20:47 20:47 07:30 RBC 2.70 L 2.97 L (4.30-5.90) m/uL Hgb 8.3 L 9.3 L (13.0-17.5) gm/dL Hct 24.7 L 27.2 L (39.0-53.0) % Lymphocytes # 0.7 L 0.8 L (1.0-4.8) k/uL Sodium 133 L (137-145) mmol/L Chloride (98-107) mmol/L Carbon Dioxide 21 L (22-30) mmol/L BUN 45 H (9-20) mg/dL Creatinine 1.72 H (0.66-1.25) mg/dL Glucose 112 H (74-99) mg/dL Calcium 8.1 L (8.4-10.2) mg/dL Total Protein 6.0 L (6.3-8.2) g/dL Albumin 3.4 L (3.5-5.0) g/dL 03/22/24 Range/Units 07:30 RBC (4.30-5.90) m/uL Hgb (13.0-17.5) gm/dL Hct (39.0-53.0) % Lymphocytes # (1.0-4.8) k/uL Sodium 133 L (137-145) mmol/L Chloride 97 L (98-107) mmol/L Carbon Dioxide (22-30) mmol/L BUN 35 H (9-20) mg/dL Creatinine 1.37 H (0.66-1.25) mg/dL Glucose 103 H (74-99) mg/dL Calcium (8.4-10.2) mg/dL Total Protein (6.3-8.2) g/dL Albumin (3.5-5.0) g/dL Microbiology - Last 24 Hours (Table) 03/20/24 22:10 Urine Culture - Preliminary Urine,Clean Catch Gram Neg Bacilli 03/20/24 20:27 Blood Culture - Preliminary Blood Assessment and Plan Assessment: 1. Acute kidney injury, prerenal and obstructive uropathy with bilateral hydronephrosis noted on CT of the abdomen. UA suggestive of UTI with WBCs 61 along with WBC clumps, 1+ protein and small blood 2. Fever secondary to underlying UTI. 3. BPH with obstructive uropathy, maintained on Flomax. Patient is reluctant for Jules catheter placement. Renal function has improved. 4. Coronary artery disease with history of stenting of RCA in January 2024 5. History of CVA 6. Volume depletion with vomiting and diarrhea maintained on IV fluids Plan: continue with IV fluids. change to Ringer lactate Continue with Flomax
--- NOTE | 2024-03-22 12:54 | P.PN ---
Subjective HISTORY OF PRESENT ILLNESS: This is a 68-year-old male with a past medical history significant for coronary artery disease with previous stenting, hypertension, hyperlipidemia, peripheral arterial disease, and nicotine dependence. Patient follows in the office with Dr. Garcia. We have been asked to see the patient in consultation for elevated troponins. Patient examined at the bedside in the emergency room. Patient states over the past week he has been having a fever at home up to 104 degrees. He reports nausea and diarrhea. He also reports having a headache. He reports decreased oral intake. He denies having any chest pain or pressure. Denies any shortness of breath. Patient was found to have acute kidney injury on admission with a creatinine of 2.34. DIAGNOSTICS: - EKG reveals sinus mechanism with LVH. No signs of acute ischemia. - Chest xray negative for acute process - Laboratory data: WBC 7.6. Hemoglobin 8.7. Platelet count 242. Sodium 134. Potassium 4.0. BUN 66. Creatinine 2.21. Troponin 0.048. 0.041. 0.030. - Current home cardiac medications include aspirin 325 mg daily, Lipitor 40 mg at night, Plavix 75 mg daily, metoprolol tartrate 12.5 mg twice a day, hydrochlorothiazide 25 mg daily, lisinopril 20 mg twice a day - Most recent echocardiogram obtained in January 2024 revealing normal EF, mild AR, mild to moderate MR - Cardiac catheterization history: January 2024 with stenting to the mid RCA 03/22/2024 Patient examined this morning at the bedside. Patient denies chest pain or pressure. He denies shortness of breath. Patient denies improvement in his nausea and diarrhea. Creatinine today 1.37. BUN 35. Last 2 blood pressure readings are elevated with a systolic between [id number]. However previous reading 115/62. Patient remains febrile this morning with a fever of 100.8. PHYSICAL EXAM: VITAL SIGNS: Reviewed. GENERAL: Well-developed in no acute distress. HEENT: Head is normocephalic. Pupils are equal, round. Sclerae anicteric. Mucous membranes of the mouth are moist. Neck supple. No JVD or thyromegaly. Bilateral carotid bruit noted. LUNGS: Respirations even and unlabored. Lungs essentially clear to auscultation bilaterally. HEART: Regular rate and rhythm. S1 and S2 heard. Systolic murmur 3/6 noted. ABDOMEN: Soft. Nondistended. Nontender. EXTREMITIES: Normal range of motion. No clubbing or cyanosis. Peripheral pulses intact. No lower extremity edema NEUROLOGIC: Awake and alert. Oriented x 3. ASSESSMENT: Fever Nausea, vomiting, and diarrhea x 1 week Decreased oral intake x 1 week Acute kidney injury, secondary to decreased oral intake along with diarrhea Abnormal troponins, flat, secondary to acute kidney injury, no evidence of myocardial injury or ischemia Coronary artery disease with previous stenting, most recently mid RCA, 01/2024 Peripheral vascular disease Hypertension Hyperlipidemia History of CVA, 2019 Former nicotine dependence PLAN: An acute coronary event has been ruled out No need to repeat echocardiogram as this was performed in January 2024 Resume home cardiac medications Continue dual antiplatelet therapy due to recent stenting in January 2024 Hold lisinopril and hydrochlorothiazide secondary to TYRONE. Continue to monitor kidney function. Blood pressure slightly elevated this afternoon. Patient will be reevaluated tomorrow. If his blood pressure remains elevated, will make adjustments to his medication regimen tomorrow. Further recommendations pending patient course Nurse practitioner note has been reviewed by physician. Signing provider agrees with the documented findings, assessment, and plan of care documented by [facility] as a scribe. Objective - Vital Signs Vital signs: Vital Signs Temp 100.8 F H 03/22/24 08:00 Pulse 90 03/22/24 08:00 Resp 20 03/22/24 08:00 BP 167/65 03/22/24 08:00 Pulse Ox 96 03/22/24 08:00 FiO2 Intake & Output 03/21/24 03/22/24 03/22/24 18:59 06:59 18:59 Intake Total 222 Output Total 525 200 Balance -525 22 Weight 72.2 kg Intake: Oral 222 Output: Urine 525 200 Other: Voiding Method Urinal Urinal - Labs CBC & Chem 7: 03/22/24 07:30 03/22/24 07:30 Labs: Abnormal Lab Results - Last 24 Hours (Table) 03/21/24 03/21/24 03/22/24 Range/Units 20:47 20:47 07:30 RBC 2.70 L 2.97 L (4.30-5.90) m/uL Hgb 8.3 L 9.3 L (13.0-17.5) gm/dL Hct 24.7 L 27.2 L (39.0-53.0) % Lymphocytes # 0.7 L 0.8 L (1.0-4.8) k/uL Sodium 133 L (137-145) mmol/L Chloride (98-107) mmol/L Carbon Dioxide 21 L (22-30) mmol/L BUN 45 H (9-20) mg/dL Creatinine 1.72 H (0.66-1.25) mg/dL Glucose 112 H (74-99) mg/dL Calcium 8.1 L (8.4-10.2) mg/dL Total Protein 6.0 L (6.3-8.2) g/dL Albumin 3.4 L (3.5-5.0) g/dL 03/22/24 Range/Units 07:30 RBC (4.30-5.90) m/uL Hgb (13.0-17.5) gm/dL Hct (39.0-53.0) % Lymphocytes # (1.0-4.8) k/uL Sodium 133 L (137-145) mmol/L Chloride 97 L (98-107) mmol/L Carbon Dioxide (22-30) mmol/L BUN 35 H (9-20) mg/dL Creatinine 1.37 H (0.66-1.25) mg/dL Glucose 103 H (74-99) mg/dL Calcium (8.4-10.2) mg/dL Total Protein (6.3-8.2) g/dL Albumin (3.5-5.0) g/dL Microbiology - Last 24 Hours (Table) 03/20/24 22:10 Urine Culture - Preliminary Urine,Clean Catch Gram Neg Bacilli 03/20/24 20:27 Blood Culture - Preliminary Blood
[2024-03-22] MEDS: LACTATED RINGERS 1,000 ML IV SCH (14:00)
--- NOTE | 2024-03-22 14:53 | P.PN ---
Subjective Progress Note Date: 03/22/24 Principal diagnosis: Febrile UTI The patient is a 68-year-old white male with a significantly elevated PSA level, who is presumed to have prostate cancer. He recently had an indwelling Jules catheter for urinary retention. He is now able to void without difficulty but empties his bladder incompletely. He was admitted with fever and weakness, and preliminary urine culture shows gram-negative bacilli. Objective - Vital Signs Vital signs: Vital Signs Temp 100.8 F H 03/22/24 08:00 Pulse 90 03/22/24 08:00 Resp 20 03/22/24 08:00 BP 167/65 03/22/24 08:00 Pulse Ox 96 03/22/24 08:00 FiO2 Intake & Output 03/21/24 03/22/24 03/22/24 18:59 06:59 18:59 Intake Total 340 Output Total 525 200 Balance -525 140 Weight 72.2 kg Intake: Oral 340 Output: Urine 525 200 Other: Voiding Method Urinal Urinal - Constitutional General appearance: Present: average body habitus, cooperative, no acute distress - Gastrointestinal General gastrointestinal: Present: soft. Absent: distended, tenderness - Psychiatric Psychiatric: Present: A&O x's 3 - Labs CBC & Chem 7: 03/22/24 07:30 03/22/24 07:30 Labs: Abnormal Lab Results - Last 24 Hours (Table) 03/21/24 03/21/24 03/22/24 Range/Units 20:47 20:47 07:30 RBC 2.70 L 2.97 L (4.30-5.90) m/uL Hgb 8.3 L 9.3 L (13.0-17.5) gm/dL Hct 24.7 L 27.2 L (39.0-53.0) % Lymphocytes # 0.7 L 0.8 L (1.0-4.8) k/uL Sodium 133 L (137-145) mmol/L Chloride (98-107) mmol/L Carbon Dioxide 21 L (22-30) mmol/L BUN 45 H (9-20) mg/dL Creatinine 1.72 H (0.66-1.25) mg/dL Glucose 112 H (74-99) mg/dL Calcium 8.1 L (8.4-10.2) mg/dL Total Protein 6.0 L (6.3-8.2) g/dL Albumin 3.4 L (3.5-5.0) g/dL 03/22/24 Range/Units 07:30 RBC (4.30-5.90) m/uL Hgb (13.0-17.5) gm/dL Hct (39.0-53.0) % Lymphocytes # (1.0-4.8) k/uL Sodium 133 L (137-145) mmol/L Chloride 97 L (98-107) mmol/L Carbon Dioxide (22-30) mmol/L BUN 35 H (9-20) mg/dL Creatinine 1.37 H (0.66-1.25) mg/dL Glucose 103 H (74-99) mg/dL Calcium (8.4-10.2) mg/dL Total Protein (6.3-8.2) g/dL Albumin (3.5-5.0) g/dL Microbiology - Last 24 Hours (Table) 03/20/24 22:10 Urine Culture - Preliminary Urine,Clean Catch Gram Neg Bacilli 03/20/24 20:27 Blood Culture - Preliminary Blood Assessment and Plan (1) Urinary retention Current Visit: Yes Status: Acute Code(s): R33.9 - RETENTION OF URINE, UNSPECIFIED SNOMED Code(s): 345109257 (2) UTI (urinary tract infection) Current Visit: Yes Status: Acute Code(s): N39.0 - URINARY TRACT INFECTION, SITE NOT SPECIFIED SNOMED Code(s): 61299655 (3) Elevated prostate specific antigen [PSA] Current Visit: Yes Status: Acute Code(s): R97.20 - ELEVATED PROSTATE SPEC IFIC ANTIGEN [PSA] SNOMED Code(s): 942456323 Plan: - Continue tamsulosin - Continue ceftriaxone, pending final culture results - The patient was advised of the fact that he is strongly suspected to have prostate cancer. Our office has repeatedly attempted to reach him to schedule in-office prostate ultrasound with biopsies. He was given our card and asked to contact our office to schedule this.
--- NOTE | 2024-03-22 19:26 | P.PN ---
Subjective Progress Note Date: 03/22/24 HISTORY OF PRESENT ILLNESS: 68-year-old male previous medical history significant for hypertension and hypertensive cardiovascular disease, hyperlipidemia, chronic tobacco use and dependence with COPD, peripheral vascular occlusive disease, coronary artery disease status post PCI of the RCA even though he was not on dominant vessel he also was found to have a moderate disease of the LCx and also diagonal branch but the FFR was acceptable at 0.91, patient had a workup for his right ischemic rest pain and he was seen in consultation by vascular surgery initially underwent CT angiography in the workup did show evidence of superficial femoral artery occlusive disease and popliteal artery occlusive disease, however the distal popliteal artery and the tibial artery were patent patient was not a candidate for endovascular revascularization, therefore patient underwent right femoral artery to distal popliteal in situ bypass vein graft that was done successfully by Dr. Hernandez patient was discharged home and he followed up with me in the office as an outpatient, he was doing a bit better with the right lower extremity, he has good pulse, he has no feeling in the right foot, apparently the patient had an issue with obstructive uropathy back then, had a Jules catheter placed and and the patient went home with a Jules catheter and he was started on Flomax 0.4 mg once every day, he had his Jules catheter removed on last Tuesday according to the patient, and the patient developed to have a significant generalized weakness and fever and chills not able to do anything, he was having diarrhea as well he was not sure exactly was going on, he came to the emergency department because of generalized weakness and fever he was seen in the emergency department was found to have an acute kidney injury as well as UTI, he was given 2 g of Rocephin, he was started on IV fluid resuscitation and his CT scan did not show evidence of bilateral hydronephrosis suggestive of obstructive uropathy patient was reluctant to have a Jules catheter placement, urology consultation will be obtained, patient is well-known to have a very elevated PSA suggestive of prostate cancer, he has not had any workup for that at this point, he was seen by urology in the past, but the biopsy is not done yet. Patient will be admitted to the hospital he was seen in consultation by nephrology who recommended IV fluid resuscitation, and urology consultation consulted Dr. Vanessa, also was seen in consultation by cardiology because of elevated troponin likely related to reduced clearance due to acute kidney injury no evidence of any ischemic heart disease at this point, it was recommended for the patient to be continued on metoprolol 25 mg twice every day and aspirin 81 mg once every day Plavix 75 mg once every day and atorvastatin 40 mg orally once every day. 03/22: Patient did have an episode of fever last night temperature 102.3, blood cultures were drawn, still pending the urine culture at this time, patient was maintained on ceftriaxone 1 g IV piggyback every 24 hours, continue IV fluid resuscitation, patient was placed on sodium bicarbonate drip, his sodium bicarbonate level is better today, I will recheck his CMP today, hopefully will be able to switch to IV fluid in the form of normal saline 75 cc an hour, patient does not appear to have any urinary retention, his BUN and creatinine is improving, we will continue to monitor the patient very closely, patient has been followed by cardiology as well as by nephrology. REVIEW OF SYSTEMS: Constitutional: positive for fever, no chills, no night sweats. No weight change. positive for weakness, positive for fatigue or lethargy. No daytime sleepiness. EENT: No headache. No blurred vision or double vision, no loss of vision. No l oss of Hearing, no ringing in the ears, no dizziness. No nasal drainage or congestion. No epistaxis. No sore throat. Lungs: No shortness of breath, no cough, no sputum production. No wheezing. Re ports dyspnea with activity. Cardiovascular: No chest pain, no lower extremity edema. No palpitations. No paroxysmal nocturnal dyspnea. No orthopnea. No lightheadedness or dizziness. No syncopal episodes. Abdominal: Reports abdominal pain. No nausea, vomiting. positive for diarrhea. No constipation. No bloody or tarry stools reports loss of appetite. Genitourinary: No dysuria, increased frequency, urgency, positive for urinary retention Musculoskeletal: No myalgias. No muscle weakness, no gait dysfunction, no frequent falls. Positive for back pain. No neck pain. Integumentary: No wounds, no lesions. No rash or pruritus. No unusual bruising. Neurologic: No aphasia. No facial droop. No change in mentation. No head injury. Occasional headache. No paralysis. Positive for paresthesia of the right lower extremity. Psychiatric: No depression. No anxiety. No mood swings. Endocrine: No abnormal blood sugars. No weight change. PHYSICAL EXAMINATION: General: 68-year-old male laying down in bed in no distress. HEENT: Head is atraumatic, normocephalic, pupils were equal round reactive to light and recommendation, extraocular muscle movement were intact, sclera nonicteric, conjunctivae were pale, mucous membranes of the mouth are somewhat dry. Neck: Supple, no JVP, normal carotid upstroke bilaterally, no lymphadenopathy. Chest: Decreased breath sounds at the bases, few rhonchi, no expiratory wheezes, no chest wall tenderness, no intercostal retractions. Heart: First heart sound is normal, second heart sounds normal there is systolic ejection murmur 2/6 located left sternal border. Abdomen: Soft, nontender, nondistended, positive bowel sounds, there is no hepatosplenomegaly left inguinal hernia Extremities: There is no edema, no calf tenderness, dorsalis pedis +1 bilaterally. Neurologic examination: Patient is awake alert and oriented x3 , cranial nerves II-12 appear grossly intact, muscle power were 5 out of 5 in upper extremities and 5 out of 5 in bilateral lower extremities, deep tendon reflexes normal bilaterally. ASSESSMENT AND PLAN: 1. Acute kidney injury due to acute tubular necrosis due to gastrointestinal fluid loss due to poor oral intake of fluid and diarrhea, as well as obstructive uropathy. Patient will be taken off sodium bicarb and drip, he was started on lactated Ringer at 75 cc an hour, repeat the patient's labs tomorrow morning, avoid nephrotoxins. 2. Urinary tract infection with SIRS. Send the blood for culture, urine culture, discontinue Rocephin start the patient on cefepime 2 g piggyback every 12 hours. 3. Elevated troponin likely due to reduced clearance due to acute kidney injury monitor the patient very closely, patient does not appear to have any acute ischemic event at this time, continue with his cardiac medication aspirin 81 mg once every day, Plavix 75 mg once every day, metoprolol 25 mg orally twice every day, atorvastatin 40 mg orally once every day. Cardiology consultation apprec iated. 4. None anion gap metabolic acidosis likely due to acute kidney injury and recent diarrhea. Resolved. 5. Minimal drainage from the incision site of the recent femoral to popliteal bypass surgery on the right try to obtain culture, blood culture still pending, switch the antibiotic to cefepime 2 g piggyback every 12 hours. 6. Coronary artery disease status post PCI of the RCA that was done in January 2024 continue patient on metoprolol 12.5 mg orally twice every day, lisinopril 20 mg orally twice every day, continue Plavix 75 mg once every day, aspirin 80 mg once every day, continue atorvastatin 40 mg orally once every day keep LDL 55-70. 7. Hypertension and hypertensive cardiovascular disease. Continue patient on lisinopril 20 mg orally twice every day, metoprolol 12.5 mg orally twice every day, monitor the patient blood pressure very closely. 8. Mixed hyperlipidemia. Continue atorvastatin 40 mg once every day, monitor lipid panel, keep LDL 55-70. 9. GERD with esophagitis. Continue pantoprazole 40 mg once every day. 10. Chronic tobacco dependence with COPD. Smoking cessation and counseling and increased risk of CVA, CAD and malignancy. Continue albuterol HFA 2 puffs inhalation every 4 hours as needed continue Symbicort 80/45 mcg 2 puffs elation twice every day. 11. CVA/TIA. Continue patient on aspirin 81 mg once every day, clopidogrel 75 mg once every day, as well as atorvastatin 40 mg orally daily for secondary prevention. 12. Bipolar disorder. patient is not taking any medication at this point in time. 13. Anxiety disorder. Patient is not taking any medication at this point in time. 14. Elevated PSA his last PSA was 52 likely prostate cancer he will need to follow-up with urology as an outpatient for possible prostate biopsy. 15. DVT prophylaxis. Lovenox 30 mg subcutaneous every 24 hours. 16. GI prophylaxis. Continue Protonix 40 mg IV push every 24 hours. 17. Gnosis is guarded. Objective - Vital Signs Vital signs: Vital Signs Temp 98.5 F 03/21/24 23:50 Pulse 69 03/21/24 23:50 Resp 20 03/21/24 23:50 BP 115/62 03/21/24 23:50 Pulse Ox 94 L 03/21/24 23:50 FiO2 Intake & Output 03/21/24 03/21/24 03/22/24 06:59 18:59 06:59 Output Total 525 Balance -525 Weight 72.575 kg 72.575 kg Output: Urine 525 Other: Voiding Method Urinal - Labs CBC & Chem 7: 03/22/24 07:30 03/22/24 07:30 Labs: Abnormal Lab Results - Last 24 Hours (Table) 03/21/24 03/21/24 03/21/24 Range/Units 03:50 03:50 20:47 RBC 2.80 L 2.70 L (4.30-5.90) m/uL Hgb 8.7 L 8.3 L (13.0-17.5) gm/dL Hct 26.0 L 24.7 L (39.0-53.0) % Lymphocytes # 0.7 L 0.7 L (1.0-4.8) k/uL Sodium 134 L (137-145) mmol/L Chloride 111 H (98-107) mmol/L Carbon Dioxide 16 L (22-30) mmol/L BUN 66 H (9-20) mg/dL Creatinine 2.21 H (0.66-1.25) mg/dL Glucose 120 H (74-99) mg/dL Calcium 7.6 L (8.4-10.2) mg/dL Total Protein 5.5 L (6.3-8.2) g/dL Albumin 3.0 L (3.5-5.0) g/dL 03/21/24 Range/Units 20:47 RBC (4.30-5.90) m/uL Hgb (13.0-17.5) gm/dL Hct (39.0-53.0) % Lymphocytes # (1.0-4.8) k/uL Sodium 133 L (137-145) mmol/L Chloride (98-107) mmol/L Carbon Dioxide 21 L (22-30) mmol/L BUN 45 H (9-20) mg/dL Creatinine 1.72 H (0.66-1.25) mg/dL Glucose 112 H (74-99) mg/dL Calcium 8.1 L (8.4-10.2) mg/dL Total Protein 6.0 L (6.3-8.2) g/dL Albumin 3.4 L (3.5-5.0) g/dL
[2024-03-22] MEDS: CEFEPIME 2 GM in SODIUM CHLORIDE 0.9% 100 ML IVPB SCH (19:46)
[2024-03-23 06:34] LABS: Basophils % (A) 0 %; Eosinophils # (A) 0.1 k/uL (0-0.7); Eosinophils % (A) 2 %; HCT 25.8 % (39.0-53.0); HGB 8.8 gm/dL (13.0-17.5); Lymphocytes # (A) 0.9 k/uL (1.0-4.8); Lymphocytes % (A) 17 %; MCH 30.7 pg (25.0-35.0); MCHC 33.9 g/dL (31.0-37.0); MCV 90.6 fL (80.0-100.0); Mean Platelet Volume 8.5; Monocytes # (A) 0.4 k/uL (0-1.0); Monocytes % (A) 8 %; Neutrophils # (A) 3.9 k/uL (1.3-7.7); Neutrophils % (A) 70 %; Platelet Count 273 k/uL (150-450); RBC 2.85 m/uL (4.30-5.90); RDW 13.1 % (11.5-15.5); WBC 5.6 k/uL (3.8-10.6)
[2024-03-23 07:50] LABS: ALT 39 U/L (4-49); AST 44 U/L (17-59); African American GFR (CKD) 72 (>60 ml/min/1.73 sqM); Albumin 3.4 g/dL (3.5-5.0); Alkaline Phosphatase 105 U/L (38-126); Anion Gap 9 mmol/L; Blood Urea Nitrogen 22 mg/dL (9-20); Calcium 8.3 mg/dL (8.4-10.2); Carbon Dioxide 27 mmol/L (22-30); Chloride 98 mmol/L (98-107); Glucose 111 mg/dL (74-99); Non-African American GFR(CKD) 62 (>60 ml/min/1.73 sqM); Potassium 3.8 mmol/L (3.5-5.1); Sodium 134 mmol/L (137-145); Total Bilirubin 0.3 mg/dL (0.2-1.3); Total Protein 6.1 g/dL (6.3-8.2)
[2024-03-23] MEDS: lisinopriL 10 MG TAB PO SCH (09:41)
--- NOTE | 2024-03-23 11:02 | P.PN ---
Subjective patient is seen for follow-up for acute kidney injury. Renal function has improved. Patient was evaluated by urology for BPH and mild bilateral hydronephrosis. Currently maintained on Flomax. No need for Jules catheter as renal function continues to improve. Serum creatinine has improved to 1.2 today from 2.3 on admission. No significant complaints. Objective - Vital Signs Vital signs: Vital Signs Temp 98.6 F 03/23/24 08:08 Pulse 83 03/23/24 08:08 Resp 14 03/23/24 08:08 BP 160/56 03/23/24 08:08 Pulse Ox 95 03/23/24 08:08 FiO2 Intake & Output 03/22/24 03/23/24 03/23/24 18:59 06:59 18:59 Intake Total 562 440 180 Output Total 200 200 500 Balance 362 240 -320 Weight 72.4 kg Intake: Oral 562 440 180 Output: Urine 200 200 500 Other: Voiding Method Urinal Urinal # Voids 6 - Exam patient is awake, comfortable, no acute distress. 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 - Labs CBC & Chem 7: 03/23/24 05:35 03/23/24 05:35 Labs: Abnormal Lab Results - Last 24 Hours (Table) 03/23/24 03/23/24 Range/Units 05:35 05:35 RBC 2.85 L (4.30-5.90) m/uL Hgb 8.8 L (13.0-17.5) gm/dL Hct 25.8 L (39.0-53.0) % Lymphocytes # 0.9 L (1.0-4.8) k/uL Sodium 134 L (137-145) mmol/L BUN 22 H (9-20) mg/dL Glucose 111 H (74-99) mg/dL Calcium 8.3 L (8.4-10.2) mg/dL Total Protein 6.1 L (6.3-8.2) g/dL Albumin 3.4 L (3.5-5.0) g/dL Microbiology - Last 24 Hours (Table) 03/20/24 20:27 Blood Culture - Preliminary Blood 03/21/24 15:09 Blood Culture - Preliminary Blood 03/20/24 22:10 Urine Culture - Preliminary Urine,Clean Catch Gram Neg Bacilli Assessment and Plan Assessment: 1. Acute kidney injury, prerenal and obstructive uropathy with bilateral hydronephrosis noted on CT of the abdomen. UA suggestive of UTI with WBCs 61 along with WBC clumps, 1+ protein and small blood 2. Fever secondary to underlying UTI. 3. BPH with obstructive uropathy, maintained on Flomax. Patient is reluctant for Jules catheter placement. Renal function has improved. 4. Coronary artery disease with history of stenting of RCA in January 2024 5. History of CVA 6. Volume depletion with vomiting and diarrhea maintained on IV fluids Plan: stable for discharge from nephrology standpoint. Continue with Flomax
--- NOTE | 2024-03-23 11:28 | P.PN ---
Subjective HISTORY OF PRESENT ILLNESS: This is a 68-year-old male with a past medical history significant for coronary artery disease with previous stenting, hypertension, hyperlipidemia, peripheral arterial disease, and nicotine dependence. Patient follows in the office with Dr. Garcia. We have been asked to see the patient in consultation for elevated troponins. Patient examined at the bedside in the emergency room. Patient states over the past week he has been having a fever at home up to 104 degrees. He reports nausea and diarrhea. He also reports having a headache. He reports decreased oral intake. He denies having any chest pain or pressure. Denies any shortness of breath. Patient was found to have acute kidney injury on admission with a creatinine of 2.34. DIAGNOSTICS: - EKG reveals sinus mechanism with LVH. No signs of acute ischemia. - Chest xray negative for acute process - Laboratory data: WBC 7.6. Hemoglobin 8.7. Platelet count 242. Sodium 134. Potassium 4.0. BUN 66. Creatinine 2.21. Troponin 0.048. 0.041. 0.030. - Current home cardiac medications include aspirin 325 mg daily, Lipitor 40 mg at night, Plavix 75 mg daily, metoprolol tartrate 12.5 mg twice a day, hydrochlorothiazide 25 mg daily, lisinopril 20 mg twice a day - Most recent echocardiogram obtained in January 2024 revealing normal EF, mild AR, mild to moderate MR - Cardiac catheterization history: January 2024 with stenting to the mid RCA 03/22/2024 Patient examined this morning at the bedside. Patient denies chest pain or pressure. He denies shortness of breath. Patient denies improvement in his nausea and diarrhea. Creatinine today 1.37. BUN 35. Last 2 blood pressure readings are elevated with a systolic between [id number]. However previous reading 115/62. Patient remains febrile this morning with a fever of 100.8. 03/23/2024 Patient examined this morning at the bedside. Patient currently denies chest pain or pressure. He denies shortness of breath. He denies nausea vomiting, or diarrhea. Blood pressures remain elevated this morning with a systolic between 139150. He is afebrile. Kidney function has improved this morning. Creatinine 1.20. PHYSICAL EXAM: VITAL SIGNS: Reviewed. GENERAL: Well-developed in no acute distress. HEENT: Head is normocephalic. Pupils are equal, round. Sclerae anicteric. Mucous membranes of the mouth are moist. Neck supple. No JVD or thyromegaly. Bilateral carotid bruit noted. LUNGS: Respirations even and unlabored. Lungs essentially clear to auscultation bilaterally. HEART: Regular rate and rhythm. S1 and S2 heard. Systolic murmur 3/6 noted. ABDOMEN: Soft. Nondistended. Nontender. EXTREMITIES: Normal range of motion. No clubbing or cyanosis. Peripheral pulses intact. No lower extremity edema NEUROLOGIC: Awake and alert. Oriented x 3. ASSESSMENT: Fever Nausea, vomiting, and diarrhea x 1 week Decreased oral intake x 1 week Acute kidney injury, secondary to decreased oral intake along with diarrhea Abnormal troponins, flat, secondary to acute kidney injury, no evidence of myocardial injury or ischemia Coronary artery disease with previous stenting, most recently mid RCA, 01/2024 Peripheral vascular disease Hypertension Hyperlipidemia History of CVA, 2019 Former nicotine dependence BPH with obstructive uropathy and bilateral hydronephrosis Abnormal UA suggestive of UTI Elevated PSA with strong suspicion for prostate cancer, per urology, patient to schedule biopsy outpatient PLAN: An acute coronary event has been ruled out No need to repeat echocardiogram as this was performed in January 2024 Continue dual antiplatelet therapy due to recent stenting Resume lisinopril at a lower dose of 10 mg twice a day Repeat BMP in a.m. Further recommendations pending patient course Nurse practitioner note has been reviewed by physician. Signing provider agrees with the documented findings, assessment, and plan of care documented by HOUSE [employer]HER as a scribe. Objective - Vital Signs Vital signs: Vital Signs Temp 98.3 F 03/23/24 11:19 Pulse 71 03/23/24 11:19 Resp 15 03/23/24 11:19 BP 135/58 03/23/24 11:19 Pulse Ox 95 03/23/24 11:19 FiO2 Intake & Output 03/22/24 03/23/24 03/23/24 18:59 06:59 18:59 Intake Total 562 440 180 Output Total 542 107 6426 Balance 362 240 -1220 Weight 72.4 kg Intake: Oral 562 440 180 Output: Urine 579 055 5234 Other: Voiding Method Urinal Urinal Urinal # Voids 6 - Labs CBC & Chem 7: 03/23/24 05:35 03/23/24 05:35 Labs: Abnormal Lab Results - Last 24 Hours (Table) 03/23/24 03/23/24 Range/Units 05:35 05:35 RBC 2.85 L (4.30-5.90) m/uL Hgb 8.8 L (13.0-17.5) gm/dL Hct 25.8 L (39.0-53.0) % Lymphocytes # 0.9 L (1.0-4.8) k/uL Sodium 134 L (137-145) mmol/L BUN 22 H (9-20) mg/dL Glucose 111 H (74-99) mg/dL Calcium 8.3 L (8.4-10.2) mg/dL Total Protein 6.1 L (6.3-8.2) g/dL Albumin 3.4 L (3.5-5.0) g/dL Microbiology - Last 24 Hours (Table) 03/20/24 20:27 Blood Culture - Preliminary Blood 03/21/24 15:09 Blood Culture - Preliminary Blood 03/20/24 22:10 Urine Culture - Preliminary Urine,Clean Catch Gram Neg Bacilli
--- NOTE | 2024-03-23 12:41 | P.PN ---
Subjective Progress Note Date: 03/23/24 Principal diagnosis: Febrile UTI The patient is a 68-year-old white male with a significantly elevated PSA level, who is presumed to have prostate cancer. He recently had an indwelling Jules catheter for urinary retention. He is now able to void without difficulty but empties his bladder incompletely. He was admitted with fever and weakness, and preliminary urine culture shows gram-negative bacilli. He is being treated with antibiotics and states that he is feeling much better. Objective - Vital Signs Vital signs: Vital Signs Temp 98.3 F 03/23/24 11:19 Pulse 71 03/23/24 11:19 Resp 15 03/23/24 11:19 BP 135/58 03/23/24 11:19 Pulse Ox 95 03/23/24 11:19 FiO2 Intake & Output 03/22/24 03/23/24 03/23/24 18:59 06:59 18:59 Intake Total 562 440 180 Output Total 106 497 0264 Balance 362 240 -1220 Weight 72.4 kg Intake: Oral 562 440 180 Output: Urine 356 752 1355 Other: Voiding Method Urinal Urinal Urinal # Voids 6 - Constitutional General appearance: Present: average body habitus, cooperative, no acute distress - Psychiatric Psychiatric: Present: A&O x's 3 - Labs CBC & Chem 7: 03/23/24 05:35 03/23/24 05:35 Labs: Abnormal Lab Results - Last 24 Hours (Table) 03/23/24 03/23/24 Range/Units 05:35 05:35 RBC 2.85 L (4.30-5.90) m/uL Hgb 8.8 L (13.0-17.5) gm/dL Hct 25.8 L (39.0-53.0) % Lymphocytes # 0.9 L (1.0-4.8) k/uL Sodium 134 L (137-145) mmol/L BUN 22 H (9-20) mg/dL Glucose 111 H (74-99) mg/dL Calcium 8.3 L (8.4-10.2) mg/dL Total Protein 6.1 L (6.3-8.2) g/dL Albumin 3.4 L (3.5-5.0) g/dL Microbiology - Last 24 Hours (Table) 03/20/24 20:27 Blood Culture - Preliminary Blood 03/21/24 15:09 Blood Culture - Preliminary Blood 03/20/24 22:10 Urine Culture - Preliminary Urine,Clean Catch Gram Neg Bacilli Assessment and Plan (1) Urinary retention Current Visit: Yes Status: Acute Code(s): R33.9 - RETENTION OF URINE, UNSPECIFIED SNOMED Code(s): 271269063 (2) UTI (urinary tract infection) Current Visit: Yes Status: Acute Code(s): N39.0 - URINARY TRACT INFECTION, SITE NOT SPECIFIED SNOMED Code(s): 27619889 (3) Elevated prostate specific antigen [PSA] Current Visit: Yes Status: Acute Code(s): R97.20 - ELEVATED PROSTATE SPECIFIC ANTIGEN [PSA] SNOMED Code(s): 591284994 Plan: - Continue tamsulosin - Continue ceftriaxone, pending final culture results - The patient has been scheduled to undergo a prostate ultrasound with biopsies in our office by Dr. Bolivar on April 17, 2024. Information pertaining to this has been faxed from our office to [address] [place] [address] and provided to the patient.
--- NOTE | 2024-03-23 17:09 | P.PN ---
Subjective Progress Note Date: 03/23/24 HISTORY OF PRESENT ILLNESS: 68-year-old male previous medical history significant for hypertension and hypertensive cardiovascular disease, hyperlipidemia, chronic tobacco use and dependence with COPD, peripheral vascular occlusive disease, coronary artery disease status post PCI of the RCA even though he was not on dominant vessel he also was found to have a moderate disease of the LCx and also diagonal branch but the FFR was acceptable at 0.91, patient had a workup for his right ischemic rest pain and he was seen in consultation by vascular surgery initially underwent CT angiography in the workup did show evidence of superficial femoral artery occlusive disease and popliteal artery occlusive disease, however the distal popliteal artery and the tibial artery were patent patient was not a candidate for endovascular revascularization, therefore patient underwent right femoral artery to distal popliteal in situ bypass vein graft that was done successfully by Dr. Hernandez patient was discharged home and he followed up with me in the office as an outpatient, he was doing a bit better with the right lower extremity, he has good pulse, he has no feeling in the right foot, apparently the patient had an issue with obstructive uropathy back then, had a Jules catheter placed and and the patient went home with a Jules catheter and he was started on Flomax 0.4 mg once every day, he had his Jules catheter removed on last Tuesday according to the patient, and the patient developed to have a significant generalized weakness and fever and chills not able to do anything, he was having diarrhea as well he was not sure exactly was going on, he came to the emergency department because of generalized weakness and fever he was seen in the emergency department was found to have an acute kidney injury as well as UTI, he was given 2 g of Rocephin, he was started on IV fluid resuscitation and his CT scan did not show evidence of bilateral hydronephrosis suggestive of obstructive uropathy patient was reluctant to have a Jules catheter placement, urology consultation will be obtained, patient is well-known to have a very elevated PSA suggestive of prostate cancer, he has not had any workup for that at this point, he was seen by urology in the past, but the biopsy is not done yet. Patient will be admitted to the hospital he was seen in consultation by nephrology who recommended IV fluid resuscitation, and urology consultation consulted Dr. Vanessa, also was seen in consultation by cardiology because of elevated troponin likely related to reduced clearance due to acute kidney injury no evidence of any ischemic heart disease at this point, it was recommended for the patient to be continued on metoprolol 25 mg twice every day and aspirin 81 mg once every day Plavix 75 mg once every day and atorvastatin 40 mg orally once every day. 03/22: Patient did have an episode of fever last night temperature 102.3, blood cultures were drawn, still pending the urine culture at this time, patient was maintained on ceftriaxone 1 g IV piggyback every 24 hours, continue IV fluid resuscitation, patient was placed on sodium bicarbonate drip, his sodium bicarbonate level is better today, I will recheck his CMP today, hopefully will be able to switch to IV fluid in the form of normal saline 75 cc an hour, patient does not appear to have any urinary retention, his BUN and creatinine is improving, we will continue to monitor the patient very closely, patient has been followed by cardiology as well as by nephrology. 03/23: Patient is doing better today, his redness around the incision site on the right leg is a lot better, continue with cefepime, infectious ease consultation appreciated, patient has no chest pain or shortness of breath, he continues to make urine, his laboratory evaluation is better, will continue the patient hospital for another 24 hours, hopefully he will be able to be discharged home in the next 1 or 2 days. REVIEW OF SYSTEMS: Constitutional: positive for fever, no chills, no night sweats. No weight change. positive for weakness, positive for fatigue or lethargy. No daytime sleepiness. EENT: No headache. No blurred vision or double vision, no loss of vision. No loss of Hearing, no ringing in the ears, no dizziness. No nasal drainage or con gestion. No epistaxis. No sore throat. Lungs: No shortness of breath, no cough, no sputum production. No wheezing. Reports dyspnea with activity. Cardiovascular: No chest pain, no lower extremity edema. No palpitations. No paroxysmal nocturnal dyspnea. No orthopnea. No lightheadedness or dizziness. No syncopal episodes. Abdominal: Reports abdominal pain. No nausea, vomiting. positive for diarrhea. No constipation. No bloody or tarry stools reports loss of appetite. Genitourinary: No dysuria, increased frequency, urgency, positive for urinary retention Musculoskeletal: No myalgias. No muscle weakness, no gait dysfunction, no frequent falls. Positive for back pain. No neck pain. Integumentary: No wounds, no lesions. No rash or pruritus. No unusual bruising. Neurologic: No aphasia. No facial droop. No change in mentation. No head injury. Occasional headache. No paralysis. Positive for paresthesia of the right lower extremity. Psychiatric: No depression. No anxiety. No mood swings. Endocrine: No abnormal blood sugars. No weight change. PHYSICAL EXAMINATION: General: 68-year-old male laying down in bed in no distress. HEENT: Head is atraumatic, normocephalic, pupils were equal round reactive to light and recommendation, extraocular muscle movement were intact, sclera nonicteric, conjunctivae were pale, mucous membranes of the mouth are somewhat dry. Neck: Supple, no JVP, normal carotid upstroke bilaterally, no lymphadenopathy. Chest: Decreased breath sounds at the bases, few rhonchi, no expiratory wheezes, no chest wall tenderness, no intercostal retractions. Heart: First heart sound is normal, second heart sounds normal there is systolic ejection murmur 2/6 located left sternal border. Abdomen: Soft, nontender, nondistended, positive bowel sounds, there is no hepatosplenomegaly left inguinal hernia Extremities: There is no edema, no calf tenderness, dorsalis pedis +1 bilaterally. Neurologic examination: Patient is awake alert and oriented x3 , cranial nerves II-12 appear grossly intact, muscle power were 5 out of 5 in upper extremities and 5 out of 5 in bilateral lower extremities, deep tendon reflexes normal bilaterally. ASSESSMENT AND PLAN: 1. Acute kidney injury due to acute tubular necrosis due to gastrointestinal fluid loss due to poor oral intake of fluid and diarrhea, as well as obstructive uropathy. Patient is doing much better and we will continue to monitor the patient CMP over the next 24 hours. 2. Urinary tract infection with SIRS. Send the blood for culture, urine culture, continue the patient on cefepime 2 g piggyback every 12 hours. 3. Elevated troponin likely due to reduced clearance due to acute kidney injury monitor the patient very closely, patient does not appear to have any acute is chemic event at this time, continue with his cardiac medication aspirin 81 mg once every day, Plavix 75 mg once every day, metoprolol 25 mg orally twice every day, atorvastatin 40 mg orally once every day. Cardiology consultation appreciated. 4. None anion gap metabolic acidosis likely due to acute kidney injury and recent diarrhea. Resolved. 5. Minimal drainage from the incision site of the recent femoral to popliteal bypass surgery on the right try to obtain culture, blood culture still pending, switch the antibiotic to cefepime 2 g piggyback every 12 hours. 6. Coronary artery disease status post PCI of the RCA that was done in January 2024 continue patient on metoprolol 12.5 mg orally twice every day, lisinopril 20 mg orally twice every day, continue Plavix 75 mg once every day, aspirin 80 mg once every day, continue atorvastatin 40 mg orally once every day keep LDL 55-70. 7. Hypertension and hypertensive cardiovascular disease. Continue patient on lisinopril 20 mg orally twice every day, metoprolol 12.5 mg orally twice every day, monitor the patient blood pressure very closely. 8. Mixed hyperlipidemia. Continue atorvastatin 40 mg once every day, monitor lipid panel, keep LDL 55-70. 9. GERD with esophagitis. Continue pantoprazole 40 mg once every day. 10. Chronic tobacco dependence with COPD. Smoking cessation and counseling and increased risk of CVA, CAD and malignancy. Continue albuterol HFA 2 puffs inhalation every 4 hours as needed continue Symbicort 80/45 mcg 2 puffs elation twice every day. 11. CVA/TIA. Continue patient on aspirin 81 mg once every day, clopidogrel 75 mg once every day, as well as atorvastatin 40 mg orally daily for secondary prevention. 12. Bipolar disorder. patient is not taking any medication at this point in time. 13. Anxiety disorder. Patient is not taking any medication at this point in time. 14. Elevated PSA his last PSA was 52 likely prostate cancer he will need to follow-up with urology as an outpatient for possible prostate biopsy. 15. DVT prophylaxis. Lovenox 30 mg subcutaneous every 24 hours. 16. GI prophylaxis. Continue Protonix 40 mg IV push every 24 hours. 17. Infected right leg incision appears to be a lot better today continue cefepime, infectious ease consultation appreciated. 18. Patient can be discharged home in the next 1 or 2 days. Objective - Vital Signs Vital signs: Vital Signs Temp 98.3 F 03/23/24 11:19 Pulse 71 03/23/24 11:19 Resp 15 03/23/24 11:19 BP 135/58 03/23/24 11:19 Pulse Ox 95 03/23/24 11:19 FiO2 Intake & Output 03/22/24 03/23/24 03/23/24 18:59 06:59 18:59 Intake Total 562 440 360 Output Total 742 388 0623 Balance 362 240 -1640 Weight 72.4 kg Intake: Oral 562 440 360 Output: Urine 159 912 3803 Other: Voiding Method Urinal Urinal Urinal # Voids 6 - Labs CBC & Chem 7: 03/23/24 05:35 03/23/24 05:35 Labs: Abnormal Lab Results - Last 24 Hours (Table) 03/23/24 03/23/24 Range/Units 05:35 05:35 RBC 2.85 L (4.30-5.90) m/uL Hgb 8.8 L (13.0-17.5) gm/dL Hct 25.8 L (39.0-53.0) % Lymphocytes # 0.9 L (1.0-4.8) k/uL Sodium 134 L (137-145) mmol/L BUN 22 H (9-20) mg/dL Glucose 111 H (74-99) mg/dL Calcium 8.3 L (8.4-10.2) mg/dL Total Protein 6.1 L (6.3-8.2) g/dL Albumin 3.4 L (3.5-5.0) g/dL Microbiology - Last 24 Hours (Table) 03/20/24 22:10 Urine Culture - Final Urine,Clean Catch Escherichia coli 03/20/24 20:27 Blood Culture - Preliminary Blood 03/21/24 15:09 Blood Culture - Preliminary Blood
[2024-03-23] MEDS: DOXYCYCLINE 100 MG CAP PO SCH (21:07)
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
[2024-03-24 08:23] LABS: Basophils % (A) 0 %; Eosinophils # (A) 0.2 k/uL (0-0.7); Eosinophils % (A) 3 %; HCT 27.3 % (39.0-53.0); HGB 9.2 gm/dL (13.0-17.5); Lymphocytes # (A) 1.3 k/uL (1.0-4.8); Lymphocytes % (A) 23 %; MCH 30.9 pg (25.0-35.0); MCHC 33.8 g/dL (31.0-37.0); MCV 91.3 fL (80.0-100.0); Mean Platelet Volume 8.5; Monocytes # (A) 0.3 k/uL (0-1.0); Monocytes % (A) 6 %; Neutrophils # (A) 3.7 k/uL (1.3-7.7); Neutrophils % (A) 65 %; Platelet Count 332 k/uL (150-450); RBC 2.99 m/uL (4.30-5.90); RDW 13.4 % (11.5-15.5); WBC 5.7 k/uL (3.8-10.6)
[2024-03-24 08:55] LABS: ALT 45 U/L (4-49); AST 54 U/L (17-59); African American GFR (CKD) 82 (>60 ml/min/1.73 sqM); Albumin 3.5 g/dL (3.5-5.0); Alkaline Phosphatase 90 U/L (38-126); Anion Gap 7 mmol/L; Blood Urea Nitrogen 21 mg/dL (9-20); Calcium 8.6 mg/dL (8.4-10.2); Carbon Dioxide 30 mmol/L (22-30); Chloride 99 mmol/L (98-107); Glucose 111 mg/dL (74-99); Non-African American GFR(CKD) 71 (>60 ml/min/1.73 sqM); Sodium 136 mmol/L (137-145); Total Bilirubin 0.3 mg/dL (0.2-1.3); Total Protein 6.2 g/dL (6.3-8.2)
--- NOTE | 2024-03-24 10:15 | P.PN ---
Subjective 68-year-old male previous medical history significant for hypertension and hypertensive cardiovascular disease, hyperlipidemia, chronic tobacco use and dependence with COPD, peripheral vascular occlusive disease, coronary artery disease status post PCI of the RCA even though he was not on dominant vessel he also was found to have a moderate disease of the LCx and also diagonal branch but the FFR was acceptable at 0.91, patient had a workup for his right ischemic rest pain and he was seen in consultation by vascular surgery initially underwent CT angiography in the workup did show evidence of superficial femoral artery occlusive disease and popliteal artery occlusive disease, however the distal popliteal artery and the tibial artery were patent patient was not a candidate for endovascular revascularization, therefore patient underwent right femoral artery to distal popliteal in situ bypass vein graft that was done successfully by Dr. Hernandez patient was discharged home and he followed up with me in the office as an outpatient, he was doing a bit better with the right lower extremity, he has good pulse, he has no feeling in the right foot, apparently the patient had an issue with obstructive uropathy back then, had a Jules catheter placed and and the patient went home with a Jules catheter and he was started on Flomax 0.4 mg once every day, he had his Jules catheter removed on last Tuesday according to the patient, and the patient developed to have a significant generalized weakness and fever and chills not able to do anything, he was having diarrhea as well he was not sure exactly was going on, he came to the emergency department because of generalized weakness and fever he was seen in the emergency department was found to have an acute kidney injury as well as UTI, he was given 2 g of Rocephin, he was started on IV fluid resuscitation and his CT scan did not show evidence of bilateral hydronephrosis suggestive of obstructive uropathy patient was reluctant to have a Jules catheter placement, urology consultation will be obtained, patient is well-known to have a very elevated PSA suggestive of prostate cancer, he has not had any workup for that at this point, he was seen by urology in the past, but the biopsy is not done yet. Patient will be admitted to the hospital he was seen in consultation by n ephrology who recommended IV fluid resuscitation, and urology consultation consulted Dr. Vanessa, also was seen in consultation by cardiology because of elevated troponin likely related to reduced clearance due to acute kidney injury no evidence of any ischemic heart disease at this point, it was recommended for the patient to be continued on metoprolol 25 mg twice every day and aspirin 81 mg once every day Plavix 75 mg once every day and atorvastatin 40 mg orally once every day. 03/22: Patient did have an episode of fever last night temperature 102.3, blood cultures were drawn, still pending the urine culture at this time, patient was maintained on ceftriaxone 1 g IV piggyback every 24 hours, continue IV fluid resuscitation, patient was placed on sodium bicarbonate drip, his sodium bica rbonate level is better today, I will recheck his CMP today, hopefully will be able to switch to IV fluid in the form of normal saline 75 cc an hour, patient does not appear to have any urinary retention, his BUN and creatinine is improving, we will continue to monitor the patient very closely, patient has been followed by cardiology as well as by nephrology. 03/23: Patient is doing better today, his redness around the incision site on the right leg is a lot better, continue with cefepime, infectious ease consultation appreciated, patient has no chest pain or shortness of breath, he continues to make urine, his laboratory evaluation is better, will continue the patient hospital for another 24 hours, hopefully he will be able to be discharged home in the next 1 or 2 days. 03/24 Patient with no dyspnea or chest pain No dysuria or urgency Right lower extremity surgical wound is closed and healing with scattered area of mild erythema Patient denies any other new symptoms He wants to go home soon He is currently covered with ceftriaxone and doxycycline He is on aspirin and Plavix Creatinine improved down to 1.0 Blood culture still pending Urine cultures growing sensitive E. coli Patient is aware about his prostate problem and he himself told me he is however appointment with Dr. Clayton on 04/17 that he intends to follow-up with Objective - Vital Signs Vital signs: Vital Signs Temp 98.6 F 03/23/24 20:00 Pulse 65 03/24/24 04:00 Resp 16 03/24/24 04:00 BP 132/61 03/24/24 04:00 Pulse Ox 100 03/24/24 04:00 FiO2 Intake & Output 03/23/24 03/24/24 03/24/24 18:59 06:59 18:59 Intake Total 540 Output Total 2600 1600 675 Balance -2059 Weight 70.7 kg Intake: Oral 540 Output: Urine 2599 Other: Voiding Method Urinal Urinal - Exam GENERAL: The patient is alert and oriented x3, not in any acute distress. Well developed, well nourished. HEENT: Pupils are round and equally reacting to light. EOMI. No scleral icterus. No conjunctival pallor. Normocephalic, atraumatic. No pharyngeal erythema. No thyromegaly. CARDIOVASCULAR: S1 and S2 present. No murmurs, rubs, or gallops. PULMONARY: Chest is clear to auscultation, no wheezing , no crackles. ABDOMEN: Soft, nontender, nondistended, normoactive bowel sounds. No palpable organomegaly. -MUSCULOSKELETAL: No joint swelling or deformity. Right lower extremity vertical and medial wound is closed with scattered mild area with erythema, no induration or purulent discharge EXTREMITIES: No cyanosis, clubbing, or pedal edema. NEUROLOGICAL: Gross neurological examination did not reveal any focal deficits. SKIN: No rashes. no petechiae. - Labs CBC & Chem 7: 03/24/24 08:02 03/24/24 08:02 Labs: Abnormal Lab Results - Last 24 Hours (Table) 03/24/24 03/24/24 Range/Units 08:02 08:02 RBC 2.99 L (4.30-5.90) m/uL Hgb 9.2 L (13.0-17.5) gm/dL Hct 27.3 L (39.0-53.0) % Sodium 136 L (137-145) mmol/L BUN 21 H (9-20) mg/dL Glucose 111 H (74-99) mg/dL Total Protein 6.2 L (6.3-8.2) g/dL Microbiology - Last 24 Hours (Table) 03/20/24 20:27 Blood Culture - Preliminary Blood 03/21/24 15:09 Blood Culture - Preliminary Blood 03/20/24 22:10 Urine Culture - Final Urine,Clean Catch Escherichia coli Assessment and Plan Assessment: 1. Acute kidney injury due to acute tubular necrosis due to gastrointestinal fluid loss due to poor oral intake of fluid and diarrhea, as well as obstructive uropathy. Patient is doing much better and we will continue to monitor the patient CMP over the next 24 hours. 2. Urinary tract infection with SIRS. Send the blood for culture, urine culture, continue the patient on cefepime 2 g piggyback every 12 hours. 3. Elevated troponin likely due to reduced clearance due to acute kidney injury monitor the patient very closely, patient does not appear to have any acute ischemic event at this time, continue with his cardiac medication aspirin 81 mg once every day, Plavix 75 mg once every day, metoprolol 25 mg orally twice every day, atorvastatin 40 mg orally once every day. Cardiology consultation appreciated. 4. None anion gap metabolic acidosis likely due to acute kidney injury and r ecent diarrhea. Resolved. 5. Minimal drainage from the incision site of the recent femoral to popliteal bypass surgery on the right try to obtain culture, blood culture still pending, switch the antibiotic to cefepime 2 g piggyback every 12 hours. 6. Coronary artery disease status post PCI of the RCA that was done in January 2024 continue patient on metoprolol 12.5 mg orally twice every day, lisinopril 20 mg orally twice every day, continue Plavix 75 mg once every day, aspirin 80 mg once every day, continue atorvastatin 40 mg orally once every day keep LDL 55-70. 7. Hypertension and hypertensive cardiovascular disease. Continue patient on lisinopril 20 mg orally twice every day, metoprolol 12.5 mg orally twice every day, monitor the patient blood pressure very closely. 8. Mixed hyperlipidemia. Continue atorvastatin 40 mg once every day, monitor lipid panel, keep LDL 55-70. 9. GERD with esophagitis. Continue pantoprazole 40 mg once every day. 10. Chronic tobacco dependence with COPD. Smoking cessation and counseling and increased risk of CVA, CAD and malignancy. Continue albuterol HFA 2 puffs inhalation every 4 hours as needed continue Symbicort 80/45 mcg 2 puffs elation twice every day. 11. CVA/TIA. Continue patient on aspirin 81 mg once every day, clopidogrel 75 mg once every day, as well as atorvastatin 40 mg orally daily for secondary prevention. 12. Bipolar disorder. patient is not taking any medication at this point in time. 13. Anxiety disorder. Patient is not taking any medication at this point in time. 14. Elevated PSA his last PSA was 52 likely prostate cancer he will need to follow-up with urology as an outpatient for possible prostate biopsy. 15. DVT prophylaxis. Lovenox 30 mg subcutaneous every 24 hours. 16. GI prophylaxis. Continue Protonix 40 mg IV push every 24 hours. 17. Infected right leg incision appears to be a lot better today continue cefepime, infectious ease consultation appreciated.
--- NOTE | 2024-03-24 12:34 | P.PN ---
Subjective HISTORY OF PRESENT ILLNESS: This is a 68-year-old male with a past medical history significant for coronary artery disease with previous stenting, hypertension, hyperlipidemia, peripheral arterial disease, and nicotine dependence. Patient follows in the office with Dr. Garcia. We have been asked to see the patient in consultation for elevated troponins. Patient examined at the bedside in the emergency room. Patient states over the past week he has been having a fever at home up to 104 degrees. He reports nausea and diarrhea. He also reports having a headache. He reports decreased oral intake. He denies having any chest pain or pressure. Denies any shortness of breath. Patient was found to have acute kidney injury on admission with a creatinine of 2.34. DIAGNOSTICS: - EKG reveals sinus mechanism with LVH. No signs of acute ischemia. - Chest xray negative for acute process - Laboratory data: WBC 7.6. Hemoglobin 8.7. Platelet count 242. Sodium 134. Potassium 4.0. BUN 66. Creatinine 2.21. Troponin 0.048. 0.041. 0.030. - Current home cardiac medications include aspirin 325 mg daily, Lipitor 40 mg at night, Plavix 75 mg daily, metoprolol tartrate 12.5 mg twice a day, hydrochlorothiazide 25 mg daily, lisinopril 20 mg twice a day - Most recent echocardiogram obtained in January 2024 revealing normal EF, mild AR, mild to moderate MR - Cardiac catheterization history: January 2024 with stenting to the mid RCA 03/22/2024 Patient examined this morning at the bedside. Patient denies chest pain or pressure. He denies shortness of breath. Patient denies improvement in his nausea and diarrhea. Creatinine today 1.37. BUN 35. Last 2 blood pressure readings are elevated with a systolic between [id number]. However previous reading 115/62. Patient remains febrile this morning with a fever of 100.8. 03/23/2024 Patient examined this morning at the bedside. Patient currently denies chest pain or pressure. He denies shortness of breath. He denies nausea vomiting, or diarrhea. Blood pressures remain elevated this morning with a systolic between [id number]. He is afebrile. Kidney function has improved this morning. Creatinine 1.20. 03/24/2024 Patient examined this morning at the bedside. Patient currently denies chest pain or pressure. He denies shortness of breath. Denies any nausea, vomiting, or diarrhea. Vital signs are stable. Patient is hoping to be discharged home today. Creatinine today 1.08. PHYSICAL EXAM: VITAL SIGNS: Reviewed. GENERAL: Well-developed in no acute distress. HEENT: Head is normocephalic. Pupils are equal, round. Sclerae anicteric. Mucous membranes of the mouth are moist. Neck supple. No JVD or thyromegaly. Bilateral carotid bruit noted. LUNGS: Respirations even and unlabored. Lungs essentially clear to auscultation bilaterally. HEART: Regular rate and rhythm. S1 and S2 heard. Systolic murmur 3/6 noted. ABDOMEN: Soft. Nondistended. Nontender. EXTREMITIES: Normal range of motion. No clubbing or cyanosis. Peripheral pulses intact. No lower extremity edema NEUROLOGIC: Awake and alert. Oriented x 3. ASSESSMENT: Fever Nausea, vomiting, and diarrhea x 1 week Decreased oral intake x 1 week Acute kidney injury, secondary to decreased oral intake along with diarrhea Abnormal troponins, flat, secondary to acute kidney injury, no evidence of myoc ardial injury or ischemia Coronary artery disease with previous stenting, most recently mid RCA, 01/2024 Peripheral vascular disease Hypertension Hyperlipidemia History of CVA, 2019 Former nicotine dependence BPH with obstructive uropathy and bilateral hydronephrosis Abnormal UA suggestive of UTI Elevated PSA with strong suspicion for prostate cancer, per urology, patient to schedule biopsy outpatient PLAN: An acute coronary event has been ruled out No need to repeat echocardiogram as this was performed in January 2024 Continue dual antiplatelet therapy due to recent stenting Increase lisinopril back to home dose of 20 mg twice a day Patient is stable for discharge home today from a cardiac standpoint Nurse practitioner note has been reviewed by physician. Signing provider agrees with the documented findings, assessment, and plan of care documented by [employer] as a scribe. Objective - Vital Signs Vital signs: Vital Signs Temp 98.1 F 03/24/24 08:15 Pulse 76 03/24/24 08:15 Resp 16 03/24/24 08:15 BP 141/58 03/24/24 08:15 Pulse Ox 96 03/24/24 08:15 FiO2 Intake & Output 03/23/24 03/24/24 03/24/24 18:59 06:59 18:59 Intake Total 540 240 Output Total 2600 1600 675 Balance -[id number] Weight 70.7 kg Intake: Oral 540 240 Output: Urine 2600 1600 675 Other: Voiding Method Urinal Urinal Urinal - Labs CBC & Chem 7: 03/24/24 08:02 03/24/24 08:02 Labs: Abnormal Lab Results - Last 24 Hours (Table) 03/24/24 03/24/24 Range/Units 08:02 08:02 RBC 2.99 L (4.30-5.90) m/uL Hgb 9.2 L (13.0-17.5) gm/dL Hct 27.3 L (39.0-53.0) % Sodium 136 L (137-145) mmol/L BUN 21 H (9-20) mg/dL Glucose 111 H (74-99) mg/dL Total Protein 6.2 L (6.3-8.2) g/dL Microbiology - Last 24 Hours (Table) 03/20/24 20:27 Blood Culture - Preliminary Blood 03/21/24 15:09 Blood Culture - Preliminary Blood 03/20/24 22:10 Urine Culture - Final Urine,Clean Catch Escherichia coli
--- NOTE | 2024-03-24 12:55 | P.PN ---
Subjective Progress Note Date: 03/24/24 Patient is seen for follow-up for acute kidney injury. No significant complaints. patient is awake, comfortable, no acute distress. Examination of the heart S1 and S2 Examination of the lungs bilateral breath sounds are heard Abdomen is soft nontender Examination of lower extremities shows no evidence of edema [employer] exam grossly intact Objective - Vital Signs Vital signs: Vital Signs Temp 98.1 F 03/24/24 08:15 Pulse 76 03/24/24 08:15 Resp 16 03/24/24 08:15 BP 141/58 03/24/24 08:15 Pulse Ox 96 03/24/24 08:15 FiO2 Intake & Output 03/23/24 03/24/24 03/24/24 18:59 06:59 18:59 Intake Total 540 240 Output Total 2600 1600 675 Balance -2059 Weight 70.7 kg Intake: Oral 540 240 Output: Urine 2600 1600 675 Other: Voiding Method Urinal Urinal Urinal - Labs CBC & Chem 7: 03/24/24 08:02 03/24/24 08:02 Labs: Abnormal Lab Results - Last 24 Hours (Table) 03/24/24 03/24/24 Range/Units 08:02 08:02 RBC 2.99 L (4.30-5.90) m/uL Hgb 9.2 L (13.0-17.5) gm/dL Hct 27.3 L (39.0-53.0) % Sodium 136 L (137-145) mmol/L BUN 21 H (9-20) mg/dL Glucose 111 H (74-99) mg/dL Total Protein 6.2 L (6.3-8.2) g/dL Microbiology - Last 24 Hours (Table) 03/20/24 20:27 Blood Culture - Preliminary Blood 03/21/24 15:09 Blood Culture - Preliminary Blood 03/20/24 22:10 Urine Culture - Final Urine,Clean Catch Escherichia coli Assessment and Plan Assessment: 1. Acute kidney injury, prerenal and obstructive uropathy with bilateral hydronephrosis noted on CT of the abdomen. UA suggestive of UTI with WBCs 61 along with WBC clumps, 1+ protein and small blood 2. Fever secondary to underlying UTI. 3. BPH with obstructive uropathy, maintained on Flomax. Patient is reluctant for Jules catheter placement. Renal function has improved. 4. Coronary artery disease with history of stenting of RCA in January 2024 5. History of CVA 6. Volume depletion with vomiting and diarrhea maintained on IV fluids Plan: stable for discharge from nephrology standpoint. Continue with Flomax Clear for discharge
[2024-03-24] MEDS: lisinopriL 20 MG TAB PO SCH (19:59)
[2024-03-24] MEDS: HYDROcodone/APAP 10-325MG 1 EACH TAB PO PRN (20:31)
--- NOTE | 2024-03-25 10:46 | P.PN ---
Subjective Progress Note Date: 03/25/24 Patient is seen for follow-up for acute kidney injury. No significant complaints. patient is awake, comfortable, no acute distress. Examination of the heart S1 and S2 Examination of the lungs bilateral breath sounds are heard Abdomen is soft nontender Examination of lower extremities shows no evidence of edema [facility] exam grossly intact Objective - Vital Signs Vital signs: Vital Signs Temp 97.9 F 03/24/24 20:00 Pulse 63 03/25/24 04:00 Resp 16 03/25/24 04:00 BP 137/68 03/25/24 04:00 Pulse Ox 98 03/25/24 04:00 FiO2 Intake & Output 03/24/24 03/25/24 03/25/24 18:59 06:59 18:59 Intake Total 358 540 598 Output Total 1525 700 Balance -1167 -160 598 Weight 69.4 kg Intake: Oral 358 540 598 Output: Urine 1525 700 Other: Voiding Method Urinal Urinal - Labs CBC & Chem 7: 03/24/24 08:02 03/24/24 08:02 Labs: Microbiology - Last 24 Hours (Table) 03/21/24 15:09 Blood Culture - Preliminary Blood Assessment and Plan Assessment: 1. Acute kidney injury, prerenal and obstructive uropathy with bilateral hydronephrosis noted on CT of the abdomen. UA suggestive of UTI with WBCs 61 along with WBC clumps, 1+ protein and small blood 2. Fever secondary to underlying UTI. 3. BPH with obstructive uropathy, maintained on Flomax. Patient is reluctant for Jules catheter placement. Renal function has improved. 4. Coronary artery disease with history of stenting of RCA in January 2024 5. History of CVA 6. Volume depletion with vomiting and diarrhea maintained on IV fluids Plan: stable for discharge from nephrology standpoint. Continue with Flomax Clear for discharge
--- NOTE | 2024-03-25 13:04 | P.PN ---
Subjective HISTORY OF PRESENT ILLNESS: This is a 68-year-old male with a past medical history significant for coronary artery disease with previous stenting, hypertension, hyperlipidemia, peripheral arterial disease, and nicotine dependence. Patient follows in the office with Dr. Garcia. We have been asked to see the patient in consultation for elevated troponins. Patient examined at the bedside in the emergency room. Patient states over the past week he has been having a fever at home up to 104 degrees. He reports nausea and diarrhea. He also reports having a headache. He reports decreased oral intake. He denies having any chest pain or pressure. Denies any shortness of breath. Patient was found to have acute kidney injury on admission with a creatinine of 2.34. DIAGNOSTICS: - EKG reveals sinus mechanism with LVH. No signs of acute ischemia. - Chest xray negative for acute process - Laboratory data: WBC 7.6. Hemoglobin 8.7. Platelet count 242. Sodium 134. Potassium 4.0. BUN 66. Creatinine 2.21. Troponin 0.048. 0.041. 0.030. - Current home cardiac medications include aspirin 325 mg daily, Lipitor 40 mg at night, Plavix 75 mg daily, metoprolol tartrate 12.5 mg twice a day, hydrochlorothiazide 25 mg daily, lisinopril 20 mg twice a day - Most recent echocardiogram obtained in January 2024 revealing normal EF, mild AR, mild to moderate MR - Cardiac catheterization history: January 2024 with stenting to the mid RCA 03/22/2024 Patient examined this morning at the bedside. Patient denies chest pain or pressure. He denies shortness of breath. Patient denies improvement in his nausea and diarrhea. Creatinine today 1.37. BUN 35. Last 2 blood pressure readings are elevated with a systolic between [id number]. However previous reading 115/62. Patient remains febrile this morning with a fever of 100.8. 03/23/2024 Patient examined this morning at the bedside. Patient currently denies chest pain or pressure. He denies shortness of breath. He denies nausea vomiting, or diarrhea. Blood pressures remain elevated this morning with a systolic between [id number]. He is afebrile. Kidney function has improved this morning. Creatinine 1.20. 03/24/2024 Patient examined this morning at the bedside. Patient currently denies chest pain or pressure. He denies shortness of breath. Denies any nausea, vomiting, or diarrhea. Vital signs are stable. Patient is hoping to be discharged home today. Creatinine today 1.08. 03/25/2024 Patient examined this morning at the bedside. Patient currently denies chest pain or pressure. He denies shortness of breath. Denies any nausea, vomiting, or diarrhea. Vital signs are stable. PHYSICAL EXAM: VITAL SIGNS: Reviewed. GENERAL: Well-developed in no acute distress. HEENT: Head is normocephalic. Pupils are equal, round. Sclerae anicteric. Mucous membranes of the mouth are moist. Neck supple. No JVD or thyromegaly. Bilateral carotid bruit noted. LUNGS: Respirations even and unlabored. Lungs essentially clear to auscultation bilaterally. HEART: Regular rate and rhythm. S1 and S2 heard. Systolic murmur 3/6 noted. ABDOMEN: Soft. Nondistended. Nontender. EXTREMITIES: Normal range of motion. No clubbing or cyanosis. Peripheral pulses intact. No lower extremity edema NEUROLOGIC: Awake and alert. Oriented x 3. ASSESSMENT: Fever Nausea, vomiting, and diarrhea x 1 week Decreased oral intake x 1 week Acute kidney injury, secondary to decreased oral intake along with diarrhea Abnormal troponins, flat, secondary to acute kidney injury, no evidence of myocardial injury or ischemia Coronary artery disease with previous stenting, most recently mid RCA, 01/2024 Peripheral vascular disease Hypertension Hyperlipidemia History of CVA, 2019 Former nicotine dependence BPH with obstructive uropathy and bilateral hydronephrosis Abnormal UA suggestive of UTI Elevated PSA with strong suspicion for prostate cancer, per urology, patient to schedule biopsy outpatient PLAN: An acute coronary event has been ruled out No need to repeat echocardiogram as this was performed in January 2024 Continue dual antiplatelet therapy due to recent stenting Continue additional cardiac medications Patient is stable for discharge home today from a cardiac standpoint Nurse practitioner note has been reviewed by physician. Signing provider agrees with the documented findings, assessment, and plan of care documented by [facility] as a scribe. Objective - Vital Signs Vital signs: Vital Signs Temp 97.9 F 03/24/24 20:00 Pulse 63 03/25/24 04:00 Resp 16 03/25/24 04:00 BP 137/68 03/25/24 04:00 Pulse Ox 98 03/25/24 04:00 FiO2 Intake & Output 03/24/24 03/25/24 03/25/24 18:59 06:59 18:59 Intake Total 358 540 598 Output Total 1525 700 Balance -1167 -160 598 Weight 69.4 kg Intake: Oral 358 540 598 Output: Urine 1525 700 Other: Voiding Method Urinal Urinal - Labs CBC & Chem 7: 03/24/24 08:02 03/24/24 08:02 Labs: Microbiology - Last 24 Hours (Table) 03/21/24 15:09 Blood Culture - Preliminary Blood
--- NOTE | 2024-03-25 16:00 | P.PN ---
Subjective Progress Note Date: 03/24/24 Principal diagnosis: Reason for follow-up is a new tract infection and possible right lower extremity cellulitis Patient is a 68-year-old male with a past medical history significant for COPD, CVA/TIA, GERD/Reflux, Hyperlipidemia, Hypertension, Vascular Disorder and recently did have right femoral artery to distal popliteal in situ bypass vein graft patient also with the urinary outflow obstruction requiring Jules catheter placement admitted to hospital with fever weakness has been diagnosed with UTI and there was concern for possible cellulitis to the right lower extremity surgical site On today's evaluation that is 03/24/2024, Patient is afebrile this morning patient denies having any chest pain shortness of breath or cough, the patient is currently on room air, patient denies any abdominal pain no diarrhea no nausea no vomiting, denies pain to the right lower extremity or any drainage. Patient white count is 5.7, creat is 1.08, urine has been finalized with E. coli that is a sensitive pathogen Objective - Vital Signs Vital signs: Vital Signs Temp 98.2 F 03/24/24 16:30 Pulse 65 03/24/24 16:30 Resp 16 03/24/24 16:30 BP 176/74 03/24/24 16:30 Pulse Ox 97 03/24/24 16:30 FiO2 Intake & Output 03/24/24 03/24/24 03/25/24 06:59 18:59 06:59 Intake Total 358 Output Total 1600 1525 Balance -1600 -1167 Weight 70.7 kg Intake: Oral 358 Output: Urine 1600 1525 Other: Voiding Method Urinal Urinal - Exam GENERAL DESCRIPTION: An elderly male lying in bed in no distress RESPIRATORY SYSTEM: Unlabored breathing , decreased breath sounds at bases HEART: S1 S2 regular rate and rhythm , ABDOMEN: Soft , no tenderness EXTREMITIES: Right lower extremity incision below the knee has minimal erythema but no drainage - Labs CBC & Chem 7: 03/24/24 08:02 03/24/24 08:02 Labs: Abnormal Lab Results - Last 24 Hours (Table) 03/24/24 03/24/24 Range/Units 08:02 08:02 RBC 2.99 L (4.30-5.90) m/uL Hgb 9.2 L (13.0-17.5) gm/dL Hct 27.3 L (39.0-53.0) % Sodium 136 L (137-145) mmol/L BUN 21 H (9-20) mg/dL Glucose 111 H (74-99) mg/dL Total Protein 6.2 L (6.3-8.2) g/dL Microbiology - Last 24 Hours (Table) 03/20/24 20:27 Blood Culture - Preliminary Blood 03/21/24 15:09 Blood Culture - Preliminary Blood Assessment and Plan (1) Sepsis Current Visit: Yes Status: Acute Code(s): A41.9 - SEPSIS, UNSPECIFIED ORGANISM SNOMED Code(s): 97790875 (2) UTI (urinary tract infection) Current Visit: Yes Status: Acute Code(s): N39.0 - URINARY TRACT INFECTION, SITE NOT SPECIFIED SNOMED Code(s): 52417057 Plan: 1patient with initial presentation to the hospital with sepsis in this patient who did have a fever elevated white count significantly positive UA source is likely urinary with the urine currently growing gram-negative 2-patient also have a recent right femoral to distal popliteal bypass graft with the lower end of incision did have very minimal erythema but no induration or any drainage possible mild cellulitis 3-patient urine has been finalized with an E. coli that is a sensitive pathogen, I did switched cefepime to Rocephin and continue with the oral doxycycline for possible cellulitis to the right leg Dictation was produced using [employer] dictation software. please excuse any grammatical, word or spelling errors. Time with Patient: Less than 30
--- NOTE | 2024-03-25 16:01 | P.PN ---
Subjective Progress Note Date: 03/25/24 Principal diagnosis: Reason for follow-up is a new tract infection and possible right lower extremity cellulitis Patient is a 68-year-old male with a past medical history significant for COPD, CVA/TIA, GERD/Reflux, Hyperlipidemia, Hypertension, Vascular Disorder and recently did have right femoral artery to distal popliteal in situ bypass vein graft patient also with the urinary outflow obstruction requiring Jules catheter placement admitted to hospital with fever weakness has been diagnosed with UTI and there was concern for possible cellulitis to the right lower extremity surgical site On today's evaluation that is 03/25/2024,the patient denies any fever or any chills, patient is breathing comfortably on room air, the patient denies chest pain shortness of breath and no significant cough, patient denies abdominal pain, no nausea vomiting or diarrhea. Patient has been in the lower extremity he is feeling better wants to go home. No new lab has been obtained today blood culture have been negative Objective - Vital Signs Vital signs: Vital Signs Temp 97.9 F 03/24/24 20:00 Pulse 63 03/25/24 04:00 Resp 16 03/25/24 04:00 BP 137/68 03/25/24 04:00 Pulse Ox 98 03/25/24 04:00 FiO2 Intake & Output 03/24/24 03/25/24 03/25/24 18:59 06:59 18:59 Intake Total 358 540 598 Output Total 1525 700 Balance -1167 -160 598 Weight 69.4 kg Intake: Oral 358 540 598 Output: Urine 1525 700 Other: Voiding Method Urinal Urinal - Exam GENERAL DESCRIPTION: An elderly male lying in bed in no distress RESPIRATORY SYSTEM: Unlabored breathing , decreased breath sounds at bases HEART: S1 S2 regular rate and rhythm , ABDOMEN: Soft , no tenderness EXTREMITIES: Right lower extremity incision below the knee has minimal erythema which has decreased in intensity - Labs CBC & Chem 7: 03/24/24 08:02 03/24/24 08:02 Labs: Microbiology - Last 24 Hours (Table) 03/21/24 15:09 Blood Culture - Preliminary Blood Assessment and Plan (1) Sepsis Current Visit: Yes Status: Acute Code(s): A41.9 - SEPSIS, UNSPECIFIED ORGANISM SNOMED Code(s): 98335626 (2) UTI (urinary tract infection) Current Visit: Yes Status: Acute Code(s): N39.0 - URINARY TRACT INFECTION, SITE NOT SPECIFIED SNOMED Code(s): 81331525 Plan: 1patient with initial presentation to the hospital with sepsis in this patient who did have a fever elevated white count significantly positive UA source is likely urinary with the urine currently growing gram-negative 2-patient also have a recent right femoral to distal popliteal bypass graft with the lower end of incision did have very minimal erythema but no induration or any drainage possible mild cellulitis 3-patient urine has been finalized with an E. coli that is a sensitive pathogen, patient has been insisting on going home and per the nursing staff has been cleared for discharge and requesting for discharge antibiotics will recommend a 7-day course of oral Ceftin and doxycycline, prescription has been sent to the pharmacy Dictation was produced using [employer] dictation software. please excuse any grammatical, word or spelling errors. Time with Patient: Less than 30
[2024-03-26 09:14] VITALS: RESP 18
--- NOTE | 2024-03-26 09:32 | P.PN ---
Subjective Patient is seen in follow-up for acute kidney injury. Renal function improved. Jules catheter has been removed. Admits to good urine output. Receiving IV fluids. Vital signs are stable. General: No acute distress. HEENT: Head exam is unremarkable. LUNGS: No audible rhonchi or wheezes. HEART: Rate and Rhythm are regular. ABDOMEN: Nontender. EXTREMITITES: No edema. Objective - Vital Signs Vital signs: Vital Signs Temp 97.4 F L 03/26/24 09:12 Pulse 72 03/26/24 09:12 Resp 18 03/26/24 09:12 BP 142/55 03/26/24 09:12 Pulse Ox 94 L 03/26/24 09:12 FiO2 Intake & Output 03/25/24 03/26/24 03/26/24 18:59 06:59 18:59 Intake Total 834 280 350 Output Total 725 900 Balance 109 -620 350 Weight 70.4 kg Intake: Oral 834 280 350 Output: Urine 725 900 Other: Voiding Method Urinal Urinal Urinal - Labs CBC & Chem 7: 03/24/24 08:02 03/24/24 08:02 Labs: Microbiology - Last 24 Hours (Table) 03/20/24 20:27 Blood Culture - Final Blood Assessment and Plan Plan: Assessment: 1. Acute kidney injury secondary to ATN secondary to cardiorenal syndrome and obstructive uropathy. Creatinine 2.34 on admission and improved to 1.[address] scan showed mild bilateral hydronephrosis. 2. E. coli UTI on antibiotics. 3. BPH with obstructive uropathy maintained on Flomax. Jules catheter removed. Seen by urology. 4. Coronary artery disease with history of cardiac stenting. 5. Benign hypertension. Stable. Plan: Hep-Lock IV fluids. Encouraged oral intake. Avoid nephrotoxins. Follow-up outpatient 1 to 2 weeks postdischarge.
--- NOTE | 2024-03-26 10:07 | P.PN ---
Subjective 68-year-old male previous medical history significant for hypertension and hypertensive cardiovascular disease, hyperlipidemia, chronic tobacco use and dependence with COPD, peripheral vascular occlusive disease, coronary artery disease status post PCI of the RCA even though he was not on dominant vessel he also was found to have a moderate disease of the LCx and also diagonal branch but the FFR was acceptable at 0.91, patient had a workup for his right ischemic rest pain and he was seen in consultation by vascular surgery initially underwent CT angiography in the workup did show evidence of superficial femoral artery occlusive disease and popliteal artery occlusive disease, however the distal popliteal artery and the tibial artery were patent patient was not a candidate for endovascular revascularization, therefore patient underwent right femoral artery to distal popliteal in situ bypass vein graft that was done successfully by Dr. Hernandez patient was discharged home and he followed up with me in the office as an outpatient, he was doing a bit better with the right lower extremity, he has good pulse, he has no feeling in the right foot, apparently the patient had an issue with obstructive uropathy back then, had a Jules catheter placed and and the patient went home with a Jules catheter and he was started on Flomax 0.4 mg once every day, he had his Jules catheter removed on last Tuesday according to the patient, and the patient developed to have a significant generalized weakness and fever and chills not able to do anything, he was having diarrhea as well he was not sure exactly was going on, he came to the emergency department because of generalized weakness and fever he was seen in the emergency department was found to have an acute kidney injury as well as UTI, he was given 2 g of Rocephin, he was started on IV fluid resuscitation and his CT scan did not show evidence of bilateral hydronephrosis suggestive of obstructive uropathy patient was reluctant to have a Jules catheter placement, urology consultation will be obtained, patient is well-known to have a very elevated PSA suggestive of prostate cancer, he has not had any workup for that at this point, he was seen by urology in the past, but the biopsy is not done yet. Patient will be admitted to the hospital he was seen in consultation by n ephrology who recommended IV fluid resuscitation, and urology consultation consulted Dr. Vanessa, also was seen in consultation by cardiology because of elevated troponin likely related to reduced clearance due to acute kidney injury no evidence of any ischemic heart disease at this point, it was recommended for the patient to be continued on metoprolol 25 mg twice every day and aspirin 81 mg once every day Plavix 75 mg once every day and atorvastatin 40 mg orally once every day. 03/22: Patient did have an episode of fever last night temperature 102.3, blood cultures were drawn, still pending the urine culture at this time, patient was maintained on ceftriaxone 1 g IV piggyback every 24 hours, continue IV fluid resuscitation, patient was placed on sodium bicarbonate drip, his sodium bica rbonate level is better today, I will recheck his CMP today, hopefully will be able to switch to IV fluid in the form of normal saline 75 cc an hour, patient does not appear to have any urinary retention, his BUN and creatinine is improving, we will continue to monitor the patient very closely, patient has been followed by cardiology as well as by nephrology. 03/23: Patient is doing better today, his redness around the incision site on the right leg is a lot better, continue with cefepime, infectious ease consultation appreciated, patient has no chest pain or shortness of breath, he continues to make urine, his laboratory evaluation is better, will continue the patient hospital for another 24 hours, hopefully he will be able to be discharged home in the next 1 or 2 days. 03/24 Patient with no dyspnea or chest pain No dysuria or urgency Right lower extremity surgical wound is closed and healing with scattered area of mild erythema Patient denies any other new symptoms He wants to go home soon He is currently covered with ceftriaxone and doxycycline He is on aspirin and Plavix Creatinine improved down to 1.0 Blood culture still pending Urine cultures growing sensitive E. coli Patient is aware about his prostate problem and he himself told me he is however appointment with Dr. Clayton on 04/17 that he intends to follow-up with 03/25 Continue to improve clinically Currently with no chest pain or dyspnea. No significant urinary symptoms. Patient also evaluated by pool coordinator and assistant counsel and infectious disease who are in the process of clearing her for discharge However patient was noticed he is refusing to take his Plavix as he is supposed to and per recommendation of pool coordinator, he was not taking Plavix for the last 3 days stating that it caused him epistaxis. Epistaxis is stopped because he was not taking Plavix dual antiplatelet Therapy as recommended by pool coordinator given his recent stent Dr. Haynes his PCP will resume the care of the patient tomorrow Objective - Vital Signs Vital signs: Vital Signs Temp 98.2 F 03/25/24 15:30 Pulse 59 L 03/25/24 15:30 Resp 16 03/25/24 15:30 BP 147/73 03/25/24 15:30 Pulse Ox 97 03/25/24 15:30 FiO2 Intake & Output 03/25/24 03/25/24 03/26/24 06:59 18:59 06:59 Intake Total 540 834 Output Total 700 725 Balance -160 109 Weight 69.4 kg Intake: Oral 540 834 Output: Urine 700 725 Other: Voiding Method Urinal Urinal - Exam GENERAL: The patient is alert and oriented x3, not in any acute distress. Well developed, well nourished. HEENT: Pupils are round and equally reacting to light. EOMI. No scleral icterus. No conjunctival pallor. Normocephalic, atraumatic. No pharyngeal erythema. No thyromegaly. CARDIOVASCULAR: S1 and S2 present. No murmurs, rubs, or gallops. PULMONARY: Chest is clear to auscultation, no wheezing , no crackles. ABDOMEN: Soft, nontender, nondistended, normoactive bowel sounds. No palpable organomegaly. -MUSCULOSKELETAL: No joint swelling or deformity. Right lower extremity vertical and medial wound is closed with scattered mild area with erythema, no induration or purulent discharge EXTREMITIES: No cyanosis, clubbing, or pedal edema. NEUROLOGICAL: Gross neurological examination did not reveal any focal deficits. SKIN: No rashes. no petechiae. - Labs CBC & Chem 7: 03/24/24 08:02 03/24/24 08:02 Labs: Microbiology - Last 24 Hours (Table) 03/21/24 15:09 Blood Culture - Preliminary Blood Assessment and Plan Assessment: 1. Acute kidney injury due to acute tubular necrosis due to gastrointestinal fluid loss due to poor oral intake of fluid and diarrhea, as well as obstructive uropathy. Patient is doing much better and we will continue to monitor the patient CMP over the next 24 hours. 2. Urinary tract infection with SIRS. Send the blood for culture, urine culture, continue the patient on cefepime 2 g piggyback every 12 hours. 3. Elevated troponin likely due to reduced clearance due to acute kidney injury monitor the patient very closely, patient does not appear to have any acute ischemic event at this time, continue with his cardiac medication aspirin 81 mg once every day, Plavix 75 mg once every day, metoprolol 25 mg orally twice every day, atorvastatin 40 mg orally once every day. Cardiology consultation appreciated. 4. None anion gap metabolic acidosis likely due to acute kidney injury and recent diarrhea. Resolved. 5. Minimal drainage from the incision site of the recent femoral to popliteal bypass surgery on the right try to obtain culture, blood culture still pending, switch the antibiotic to cefepime 2 g piggyback every 12 hours. 6. Coronary artery disease status post PCI of the RCA that was done in January 2024 continue patient on metoprolol 12.5 mg orally twice every day, lisinopril 20 mg orally twice every day, continue Plavix 75 mg once every day, aspirin 80 mg once every day, continue atorvastatin 40 mg orally once every day keep LDL 55-70. 7. Hypertension and hypertensive cardiovascular disease. Continue patient on lisinopril 20 mg orally twice every day, metoprolol 12.5 mg orally twice every day, monitor the patient blood pressure very closely. 8. Mixed hyperlipidemia. Continue atorvastatin 40 mg once every day, monitor lipid panel, keep LDL 55-70. 9. GERD with esophagitis. Continue pantoprazole 40 mg once every day. 10. Chronic tobacco dependence with COPD. Smoking cessation and counseling and increased risk of CVA, CAD and malignancy. Continue albuterol HFA 2 puffs inhalation every 4 hours as needed continue Symbicort 80/45 mcg 2 puffs elation twice every day. 11. CVA/TIA. Continue patient on aspirin 81 mg once every day, clopidogrel 75 mg once every day, as well as atorvastatin 40 mg orally daily for secondary prevention. 12. Bipolar disorder. patient is not taking any medication at this point in time. 13. Anxiety disorder. Patient is not taking any medication at this point in time. 14. Elevated PSA his last PSA was 52 likely prostate cancer he will need to follow-up with urology as an outpatient for possible prostate biopsy. 15. DVT prophylaxis. Lovenox 30 mg subcutaneous every 24 hours. 16. GI prophylaxis. Continue Protonix 40 mg IV push every 24 hours. 17. Infected right leg incision appears to be a lot better today continue cefepime, infectious ease consultation appreciated. 18. Noncompliance. Patient refused to take Plavix although was recommended for his heart disease and cardiac stent as seen by pool coordinator. Risks and benefits are explained for the patient extensively including risk of heart attack and/or , he still refuses the medication for now
--- NOTE | 2024-03-26 11:59 | P.PN ---
Subjective Progress Note Date: 03/26/24 Principal diagnosis: Reason for follow-up is a new tract infection and possible right lower extremity cellulitis Patient is a 68-year-old male with a past medical history significant for COPD, CVA/TIA, GERD/Reflux, Hyperlipidemia, Hypertension, Vascular Disorder and recently did have right femoral artery to distal popliteal in situ bypass vein graft patient also with the urinary outflow obstruction requiring Jules catheter placement admitted to hospital with fever weakness has been diagnosed with UTI and there was concern for possible cellulitis to the right lower extremity surgical site On today's evaluation that is 03/26/2024,the patient remains to be afebrile, patient is on room air not requiring supplemental oxygen and denies any shortness of breath no chest pain or cough.Patient denies having any nausea or vomiting, no abdominal pain and no diarrhea and denies pain to the right lower extremity incision site. No new lab has been obtained today, blood culture have been negative Objective - Vital Signs Vital signs: Vital Signs Temp 97.4 F L 03/26/24 09:12 Pulse 72 03/26/24 09:12 Resp 18 03/26/24 09:12 BP 142/55 03/26/24 09:12 Pulse Ox 94 L 03/26/24 09:12 FiO2 Intake & Output 03/25/24 03/26/24 03/26/24 18:59 06:59 18:59 Intake Total 834 280 350 Output Total 725 900 Balance 109 -620 350 Weight 70.4 kg Intake: Oral 834 280 350 Output: Urine 725 900 Other: Voiding Method Urinal Urinal Urinal - Exam GENERAL DESCRIPTION: An elderly male lying in bed in no distress RESPIRATORY SYSTEM: Unlabored breathing , decreased breath sounds at bases HEART: S1 S2 regular rate and rhythm , ABDOMEN: Soft , no tenderness EXTREMITIES: Right lower extremity incision below the knee has minimal erythema which has decreased in intensity - Labs CBC & Chem 7: 03/24/24 08:02 03/24/24 08:02 Labs: Microbiology - Last 24 Hours (Table) 03/20/24 20:27 Blood Culture - Final Blood Assessment and Plan (1) Sepsis Current Visit: Yes Status: Acute Code(s): A41.9 - SEPSIS, UNSPECIFIED ORGANISM SNOMED Code(s): 94730093 (2) UTI (urinary tract infection) Current Visit: Yes Status: Acute Code(s): N39.0 - URINARY TRACT INFECTION, SITE NOT SPECIFIED SNOMED Code(s): 65753421 Plan: 1patient with initial presentation to the hospital with sepsis in this patient who did have a fever elevated white count significantly positive UA source is likely urinary with the urine currently growing gram-negative 2-patient also have a recent right femoral to distal popliteal bypass graft with the lower end of incision did have very minimal erythema but no induration or any drainage possible mild cellulitis 3-patient urine has been finalized with an E. coli that is a sensitive pathogen, 4will recommend a 7-day course of oral Ceftin and doxycycline, prescription has been sent to the pharmacy yesterday Dictation was produced using [employer] dictation software. please excuse any grammatical, word or spelling errors.
[2024-03-26 12:17] VITALS: BP 165/74; PULSE 63; TEMP 98
--- NOTE | 2024-03-26 12:30 | CDI ---
Documentation Clarification Form Date: 03/26/2024 12:17:19 PM From: Juana Mckeon RN CCDS Phone: [phone] Admit Date: 03/20/2024 09:15:00 PM Patient Name: Gonzalez Nagy Visit Number: [id number] Discharge Date: ATTENTION: The Clinical Documentation Specialists (CDI) and [facility] Coding Staff appreciate your assistance in clarifying documentation. Please respond to the clarification below the line at the bottom and electronically sign. The CDI & [facility] Coding staff will review the response and follow-up if needed. Please note: Queries are made part of the Legal Health Record. If you have any questions, please contact the author of this message via ITS. Doctor: Amelia Jc UTI is documented 03/21, and patient has Claudio catheter during recent admission and discontinued just prior to admission. Additional clarification regarding the etiology of the UTI is requested. History/Risk Factors: 68 year old male had a recent hospitalization for endovascular revascularization, had problems with obstructive uropathy and had a claudio catheter placed and went home with claudio catheter also started on Flomax once every day. Patient had claudio catheter removed on last Tuesday according to patient. The patient developed generalized weakness, fever and chills and presented to the hospital. Medical History; HTN, Hypertensive cardiovascular disease, HLD, Perpheral vascular occlusive disease. COPD, and elevated PSA. 03/21 HP. Clinical Indicators: 03/20 Urinalysis: Colorless, Cloudy, PH 5.5, Protein 1+, Blood Small, Nitrate positive, Leukocyte Esterase moderate, RBC 12, Wbc 61, Bacteria Many, Hyaline casts 30 03/20 Urine Culture Verified 03/23: Escherichia coli 03/20 Wbc 11.0; 03/22 Wbc 5.5; 03/23 Wbc 5.6 Treatment: 03/20: Tylenol po 1,000mg po x 1; 03/20 Motrin 600mg po x1; IV Fluids: 03/20 0.9NS 2L IV Bolus;03/20 0.9NS 500cc IV Bolus x1 Antibiotics: 03/20: Ceftriaxone IVPB x 1; 03/22 Ceftriaxone IVPB x 1; 03/22 03/23 Cefepime IVPB Q12h, 03/23 Vibramycin 100mg PO BID; 03/24 Ceftriaxone IVPB Q24H Please clarify the etiology of the UTI, if known: [ ] Claudio catheter [ X ] UTI not related to catheter [ ] Other condition, please specify [ ] Unable to determine (Template Last Revised: July 2020) JORDEND
--- NOTE | 2024-03-26 12:34 | CDI ---
Documentation Clarification Form Date: 03/26/2024 11:43:44 AM From: Juana Mckeon RN CCDS Phone: [phone] Admit Date: 03/20/2024 09:15:00 PM Patient Name: Gonzalez Nagy Visit Number: [id number] Discharge Date: ATTENTION: The Clinical Documentation Specialists (CDI) and [facility] Coding Staff appreciate your assistance in clarifying documentation. Please respond to the clarification below the line at the bottom and electronically sign. The CDI & [facility] Coding staff will review the response and follow-up if needed. Please note: Queries are made part of the Legal Health Record. If you have any questions, please contact the author of this message via ITS. Doctor: Amelia Jc Sepsis is documented 03/23, ID Consult which may lack sufficient clinical evidence/support in the medical record. Additional clarification is requested. History/Risk Factors: 68 year old male had a recent hospitalization for endovascular revascularization, had problems with obstructive uropathy and had a claudio catheter placed and went home with claudio catheter also started on Flomax once every day. Patient had claudio catheter removed on last Tuesday according to patient. The patient developed generalized weakness, fever and chills and presented to the hospital. Medical History; HTN, Hypertensive cardiovascular disease, HLD, Perpheral vascular occlusive disease. COPD, and elevated PSA. 03/21 HP. Clinical Indicators: 03/20/2024 admitted to observation status; 03/23/2024 admitted to inpatient status. 03/20 VSS: B/P 148/65, HR 76, Temp 100 F Oral, RR 22, SpO2 96% ra 03/22 VSS: B/P 179/76, HR 87, Temp 102.4F Oral, RR 18, SpO2 93% ra 03/23 VSS: B/P 160/56, HR 83, Temp 98.6F Oral, RR 14, SpO2 95% ra 03/20 Wbc 11.0 03/22 Wbc 5.5 03/23 Wbc 5.6 03/20 Urine Culture Verified 03/23: Escherichia coli 03/23, ID Consult: Patient with initial presentation to the hospital with sepsis patient did have a fever, elevated white count significantly positive UA source is likely urinary with the urine currently grown gram negative. Treatment: 03/20: Tylenol po 1,000mg po x 1; 03/20 Motrin 600mg po x1; IV Fluids: 03/20 0.9NS 2L IV Bolus;03/20 0.9NS 500cc IV Bolus x1 Antibiotics: 03/20: Ceftriaxone IVPB x 1; 03/22 Ceftriaxone IVPB x 1; 03/22 03/23 Cefepime IVPB Q12h, 03/23 Vibramycin 100mg PO BID; 03/24 Ceftriaxone IVPB Q24H After work up and study, please clarify which diagnosis is most appropriate? [ ] Sepsis ruled out [ X] Sepsis is a valid diagnosis as evidence by the following: (Please add rationale): E.Coli UTI and Incision cellulitis [ ] Other, please specify [ ] Unable to determine SIRS Criteria: 2 or more of the following may indicate SIRS Temperature < 96.8F (36C) or > 101.0F (38.3C) Heart Rate > 90 bpm Respiratory Rate > 20 breaths/min or PaCO2 < 32 mmHg White Blood Cell Count > 12,000 or < 4,000 cells/mm3 or > 10% bands (Template Last Reviewed: May 2023) MTDD
--- NOTE | 2024-03-26 12:48 | P.DS ---
Providers Date of admission: 03/20/24 21:15 Expected date of discharge: 03/26/24 Attending physician: Amelia Jc Consults: 03/20/24 21:12 Consult Physician Routine Consulting Provider: Alon Shepherd Consult Reason/Comments: TYRONE Do you want consulting provider notified?: Yes Consult Physician Routine Consulting Provider: Shelia Garcia Consult Reason/Comments: elevTrop Do you want consulting provider notified?: Yes 03/21/24 14:38 Consult Physician Urgent Consulting Provider: Tim Childress Consult Reason/Comments: Obstructive Uropathy Do you want consulting provider notified?: Yes 03/23/24 08:27 Consult Physician Routine Consulting Provider: Enrique De La Garza Consult Reason/Comments: infected surgical wound Do you want consulting provider notified?: Yes Primary care physician: Amelia Jc [facility] Course: HISTORY OF PRESENT ILLNESS: 68-year-old male previous medical history significant for hypertension and hypertensive cardiovascular disease, hyperlipidemia, chronic tobacco use and dependence with COPD, peripheral vascular occlusive disease, coronary artery disease status post PCI of the RCA even though he was not on dominant vessel he also was found to have a moderate disease of the LCx and also diagonal branch but the FFR was acceptable at 0.91, patient had a workup for his right ischemic rest pain and he was seen in consultation by vascular surgery initially underwent CT angiography in the workup did show evidence of superficial femoral artery occlusive disease and popliteal artery occlusive disease, however the distal popliteal artery and the tibial artery were patent patient was not a candidate for endovascular revascularization, therefore patient underwent right femoral artery to distal popliteal in situ bypass vein graft that was done successfully by Dr. Hernandez patient was discharged home and he followed up with me in the office as an outpatient, he was doing a bit better with the right lower extremity, he has good pulse, he has no feeling in the right foot, apparently the patient had an issue with obstructive uropathy back then, had a Jules catheter placed and and the patient went home with a Jules catheter and he was started on Flomax 0.4 mg once every day, he had his Jules catheter removed on last Tuesday according to the patient, and the patient developed to have a significant generalized weakness and fever and chills not able to do anything, he was having diarrhea as well he was not sure exactly was going on, he came to the emergency department because of generalized weakness and fever he was seen in the emergency department was found to have an acute kidney injury as well as UTI, he was given 2 g of Rocephin, he was started on IV fluid resuscitation and his CT scan did not show evidence of bilateral hydronephrosis suggestive of obstructive uropathy patient was reluctant to have a Jules catheter placement, urology consultation will be obtained, patient is well-known to have a very elevated PSA suggestive of prostate cancer, he has not had any workup for that at this point, he was seen by urology in the past, but the biopsy is not done yet. Patient will be admitted to the hospital he was seen in consultation by nephrology who recommended IV fluid resuscitation, and urology consultation consulted Dr. Vanessa, also was seen in consultation by cardiology because of elevated troponin likely related to reduced clearance due to acute kidney injury no evidence of any ischemic heart disease at this point, it was recommended for the patient to be continued on metoprolol 25 mg twice every day and aspirin 81 mg once every day Plavix 75 mg once every day and atorvastatin 40 mg orally once every day. 03/22: Patient did have an episode of fever last night temperature 102.3, blood cultures were drawn, still pending the urine culture at this time, patient was maintained on ceftriaxone 1 g IV piggyback every 24 hours, continue IV fluid resuscitation, patient was placed on sodium bicarbonate drip, his sodium bicarbonate level is better today, I will recheck his CMP today, hopefully will be able to switch to IV fluid in the form of normal saline 75 cc an hour, patient does not appear to have any urinary retention, his BUN and creatinine is improving, we will continue to monitor the patient very closely, patient has been followed by cardiology as well as by nephrology. 03/23: Patient is doing better today, his redness around the incision site on the right leg is a lot better, continue with cefepime, infectious ease consultation appreciated, patient has no chest pain or shortness of breath, he continues to make urine, his laboratory evaluation is better, will continue the patient hospital for another 24 hours, hopefully he will be able to be discharged home in the next 1 or 2 days. 03/26: Patient is sitting up in bed in no apparent distress, he denies any chest pain, shortness of breath, his urine culture showing E. coli that is pansensitive, his right lower extremity incision appears to be much better we will discontinue cefepime, patient also was seen by infectious disease who recommended Ceftin as well as doxycycline that was sent to the pharmacy yesterday, patient can be discharged home and follow-up with me as an outpatient next week. Discharge diagnoses: 1. Acute kidney injury due to acute tubular necrosis due to gastrointestinal fluid loss due to poor oral intake of fluid and diarrhea, 2. Urinary tract infection with SIRS with E.Coli 3. Elevated troponin likely due to reduced clearance due to acute kidney injury monitor the patient very closely, 4. None anion gap metabolic acidosis likely due to acute kidney injury and recent diarrhea. 5. Mild cellulitis to the right incision due to recent bypass surgery. 6. Coronary artery disease status post PCI of the RCA that was done in January 2024 7. Hypertension and hypertensive cardiovascular disease. 8. Mixed hyperlipidemia. 9. GERD with esophagitis. 10. Chronic tobacco dependence with COPD. 11. CVA/TIA. 12. Bipolar disorder. 13. Anxiety disorder. 14. Elevated PSA his last PSA was 52 likely prostate cancer he will need to follow-up with urology as an outpatient for possible prostate biopsy. Patient Condition at Discharge: Fair Plan - Discharge Summary Discharge Rx Participant: No New Discharge Prescriptions: New cefuroxime axetiL [Ceftin] 500 mg PO BID #14 tab Doxycycline Hyclate 100 mg PO BID 7 Days #14 tab No Action Albuterol Inhaler [Ventolin Hfa Inhaler] 1 puff INHALATION RT-Q4H PRN PRN Reason: Shortness Of Breath Metoprolol Tartrate [Lopressor] 12.5 mg PO BID #45 tab Nitroglycerin Sl Tabs [Nitrostat] 0.4 mg SUBLINGUAL Q5M PRN #25 tab PRN Reason: Chest Pain Budesonide/Formoterol Fumarate [Symbicort 80-4.5 Mcg Inhaler] 2 puff INHALATION RT-BID Omeprazole 20 mg PO HS Atorvastatin [Lipitor] 40 mg PO HS #90 tab Clopidogrel [Plavix] 75 mg PO DAILY #90 tab lisinopriL [Zestril] 20 mg PO BID #180 tab Tamsulosin [Flomax] 0.4 mg PO HS Aspirin 325 mg PO DAILY #30 tab Docusate [Colace] 100 mg PO DAILY cap Nicotine 7Mg/24Hr Patch [Habitrol] 1 patch TRANSDERM DAILY #30 patch Gabapentin [Neurontin] 300 mg PO TID #90 cap hydroCHLOROthiazide 25 mg PO DAILY HYDROcodone/APAP 10-325MG [Dorena 10-325] 1 tab PO Q6HR PRN PRN Reason: Pain Discharge Medication List Albuterol Inhaler [Ventolin Hfa Inhaler] 1 puff INHALATION RT-Q4H PRN 03/07/18 [History] Budesonide/Formoterol Fumarate [Symbicort 80-4.5 Mcg Inhaler] 2 puff INHALATION RT-BID 01/29/24 [History] Omeprazole 20 mg PO HS 01/29/24 [History] Atorvastatin [Lipitor] 40 mg PO HS #90 tab 01/31/24 [Rx] Clopidogrel [Plavix] 75 mg PO DAILY #90 tab 01/31/24 [Rx] Metoprolol Tartrate [Lopressor] 12.5 mg PO BID #45 tab 01/31/24 [Rx] Nitroglycerin Sl Tabs [Nitrostat] 0.4 mg SUBLINGUAL Q5M PRN #25 tab 01/31/24 [Rx] lisinopriL [Zestril] 20 mg PO BID #180 tab 01/31/24 [Rx] Tamsulosin [Flomax] 0.4 mg PO HS 03/06/24 [History] Aspirin 325 mg PO DAILY #30 tab 03/09/24 [Rx] Docusate [Colace] 100 mg PO DAILY cap 03/09/24 [Rx] Gabapentin [Neurontin] 300 mg PO TID #90 cap 03/09/24 [Rx] Nicotine 7Mg/24Hr Patch [Habitrol] 1 patch TRANSDERM DAILY #30 patch 03/09/24 [Rx] HYDROcodone/APAP 10-325MG [Dorena 10-325] 1 tab PO Q6HR PRN 03/21/24 [History] hydroCHLOROthiazide 25 mg PO DAILY 03/21/24 [History] Doxycycline Hyclate 100 mg PO BID 7 Days #14 tab 03/25/24 [Rx] cefuroxime axetiL [Ceftin] 500 mg PO BID #14 tab 03/25/24 [Rx] Follow up Appointment(s)/Referral(s): Amelia Jc MD [Primary Care Provider] - 1-2 days Campos Bolivar MD [STAFF PHYSICIAN] - 04/17/24 Discharge/Stand Alone Forms: [place] [facility] Pamphlet
== END 2024-03-26 13:39 | disposition home health service (06) | DRG 871 ==
LOC: EC 19:44 → 3SCARD 21:14 → OBSVTOIN 21:15 → 3SCARD 21:27
PROVIDERS: ADMIT Internal Medicine; ATTEND Internal Medicine
DX: A41.51 Sepsis due to Escherichia coli [E. coli] (principal); N17.0 Acute kidney failure with tubular necrosis; N13.6 Pyonephrosis; E87.20 Acidosis, unspecified; T81.41XA Infection following a procedure, superficial incisional surgical site, initial encounter; L03.115 Cellulitis of right lower limb; N13.8 Other obstructive and reflux uropathy; E86.9 Volume depletion, unspecified; I25.10 Atherosclerotic heart disease of native coronary artery without angina pectoris; K21.00 Gastro-esophageal reflux disease with esophagitis, without bleeding; E78.2 Mixed hyperlipidemia; J44.9 Chronic obstructive pulmonary disease, unspecified; F17.210 Nicotine dependence, cigarettes, uncomplicated; F31.9 Bipolar disorder, unspecified; F41.9 Anxiety disorder, unspecified; K21.9 Gastro-esophageal reflux disease without esophagitis; I73.9 Peripheral vascular disease, unspecified; N40.1 Benign prostatic hyperplasia with lower urinary tract symptoms; N32.89 Other specified disorders of bladder; I13.10 Hypertensive heart and chronic kidney disease without heart failure, with stage 1 through stage 4 chronic kidney disease, or unspecified chronic kidney disease; N18.9 Chronic kidney disease, unspecified; B96.20 Unspecified Escherichia coli [E. coli] as the cause of diseases classified elsewhere; R97.20 Elevated prostate specific antigen [PSA]; Z95.5 Presence of coronary angioplasty implant and graft; Z79.899 Other long term (current) drug therapy; Z79.02 Long term (current) use of antithrombotics/antiplatelets; Z79.51 Long term (current) use of inhaled steroids; Z79.82 Long term (current) use of aspirin; Z86.73 Personal history of transient ischemic attack (TIA), and cerebral infarction without residual deficits; Z91.199 Patient's noncompliance with other medical treatment and regimen due to unspecified reason; Z82.49 Family history of ischemic heart disease and other diseases of the circulatory system
CPT/HCPCS: 36415; 71045; 71046; 74176; 80053; 81001; 83605; 83690; 83735; 84100; 84484; 85025; 85610; 85730; 87040; 87077; 87086; 87186; 87636; 87651; 93005; 96361; 96365; 96366; 96367; 96375; 96376; 99285